=== PATIENT | female | born 1960 | race Caucasian/White ===

== ENCOUNTER 2017-04-06 15:36 | Emergency (ER) | payer BC ==
[~2017-04-06] VITALS: Ht 160 cm; Wt 118.1 kg
[~2017-04-06 15:36] MED LIST: BUPR-79 PO; FLUO20CA35 PO; FLUO40CA8 PO; HEPA100I10 IV; HYDR1TAB2 PO; LEVO75TA5 PO; LISI-461 PO; LISI20TA3 PO; METO-551 PO; MULT-506 PO; NAFC2INJ IV; POLY335040 PO; SODIINJ24 IV
[2017-04-06 15:41] VITALS: TEMP 36.5; Ht 160 cm; Wt 118.1 kg
[2017-04-06] MEDS ORDERED: ONDANSETRON INJ 2 MG/ML 2 ML VIAL IV STA (15:45)
[2017-04-06] MEDS ORDERED: SODIUM CHLORIDE 0.9% 1000ML 1,000 ML IV STA (15:45)
--- NOTE | 2017-04-06 15:50 | EMERGENCY ROOM VISIT NOTE ---
History Report prepared by Brandee: Zoraida Arevalo Under the Supervision of: Dr. Martín Kraus D.O. First contact with patient: 15:39 Chief Complaint: WRIST PAIN Stated Complaint: FALL/ WRIST PAIN History of Present Illness The patient is a 57 year old female who presents to the Emergency Room with complaints of a sudden fall that occurred just prior to arrival. She currently rates her discomfort as a 10/10 in severity. The patient states that she fell today onto her right wrist, causing a right wrist injury. She denies any neck pain, head pain, or other injury. The patient reports difficulty moving her fingers. She denies any tobacco or alcohol use. The patient states that she last ate around 1000 this morning. Source of History: patient Onset: prior to arrival Position: other (global) Symptom Intensity: 10/10 Quality: other (fall) Timing: other (sudden) Associated Symptoms: No headache, No neck pain Note: Associated symptoms: right wrist injury. Review of Systems See HPI for pertinent positives & negatives. A total of 10 systems reviewed and were otherwise negative. Past Medical & Surgical Medical Problems: (1) Body mass index 30+ - obesity (2) Borderline diabetes (3) DEPRESSIVE DISORDER NEC (4) DIAB NHI WO COMP TYPE II OR NOS/NOT UNCONTROLLED (5) HYPERLIPIDEMIA NEC/NOS (6) HYPOTHYROIDISM NOS (7) INTRASPINAL ABSCESS (8) LIPOID METABOL DIS NOS (9) Staphylococcal infectious disease Family History Cancer Diabetes mellitus Gallbladder disease Heart disease Hypertension Kidney disease Kidney stones Social History Alcohol Use: none Drug Use: none Marital Status: Housing Status: lives with significant other Occupation Status: employed Current/Historical Medications Scheduled Bupropion Hcl (Bupropion Hcl Er), 150 MG PO BID Fluoxetine (Prozac), 20 MG PO DAILY Fluoxetine (Prozac), 40 MG PO DAILY Levothyroxine Sodium (Levothyroxine Sodium), 88 MCG PO DAILY Lisinopril (Zestril), 10 MG PO DAILY Lisinopril (Zestril), 20 MG PO DAILY Triamcinolone Acetonide (Nasal (Nasacort Allergy 24Hr), 1 SPRAY NA UD Scheduled PRN Oxycodone Immediate Rel Tab (Roxicodone Ir), 1-2 TAB PO Q4H PRN for Severe Pain Allergies Coded Allergies: No Known Allergies (Unverified , 03/25/13) Physical Exam Vital Signs Date Time Temp Pulse Resp B/P (MAP) Pulse Ox O2 Delivery O2 Flow Rate FiO2 04/06/17 18:21 92 21 126/95 95 Room Air 04/06/17 17:38 94 12 99 04/06/17 17:36 93 15 99 04/06/17 17:34 95 16 99 04/06/17 17:32 95 14 99 04/06/17 17:31 159/92 04/06/17 17:30 93 14 99 04/06/17 17:28 94 13 99 04/06/17 17:26 95 19 99 04/06/17 17:24 92 14 99 04/06/17 17:22 93 12 100 04/06/17 17:21 157/85 04/06/17 17:20 92 15 98 04/06/17 17:19 158/97 04/06/17 17:18 92 14 99 04/06/17 17:17 154/106 04/06/17 17:16 93 22 98 04/06/17 17:15 156/108 04/06/17 17:14 91 14 97 04/06/17 17:13 156/93 04/06/17 17:12 91 11 98 04/06/17 17:07 148/99 04/06/17 17:06 87 15 90 04/06/17 17:05 153/110 04/06/17 17:04 91 28 100 04/06/17 17:03 161/ 04/06/17 17:02 89 19 98 04/06/17 17:01 156/103 04/06/17 17:00 92 11 89 04/06/17 16:59 165/109 04/06/17 16:58 95 23 96 04/06/17 16:56 97 23 100 04/06/17 16:54 94 21 98 04/06/17 16:52 95 16 96 04/06/17 16:50 93 Nasal Cannula 2.0 04/06/17 16:50 95 23 95 04/06/17 16:47 96 16 153/118 95 Room Air 04/06/17 16:47 95 17 153/118 94 Room Air 04/06/17 16:22 98 04/06/17 15:41 36.5 107 20 97 Room Air Physical Exam GENERAL: Patient is awake, alert, very anxious appearing, appears to be in significant pain. EYES: The conjunctivae are clear. The pupils are round and reactive. EARS, NOSE, MOUTH AND THROAT: The nose is without any evidence of any deformity. Mucous membranes are moist tongue is midline NECK: The neck is nontender and supple. RESPIRATORY: Normal respiratory effort is noted there is no evidence of wheezing rhonchi or rales CARDIOVASCULAR: Regular rate and rhythm noted there no murmurs rubs or gallops normal S1 normal S2 GASTROINTESTINAL: The abdomen is soft. Bowel sounds are present in all quadrants. Abdomen is nontender BACK: No midline tenderness or or step-off noted range of motion in flexion extension as well as rotation no signs of muscle spasm noted MUSCULOSKELETAL/EXTREMITIES: Significant deformity over right wrist pain was noted with any palpation and range of motion testing, no swelling or pain at the right elbow. SKIN: Pedal edema bilaterally, capillary refill was symmetric in both upper extremities. There is no obvious evidence of any rash. There are no petechiae, pallor or cyanosis noted. NEUROLOGIC: Patient is awake alert and oriented x3. Medical Decision & Procedures ER Provider Diagnostic Interpretation: X-ray results as stated below per interpretation by me and the radiologist. R WRIST 2 VIEW CLINICAL HISTORY: 57 years-old Female presenting with RIGHT WRIST PAIN, FALL. TECHNIQUE: Frontal and lateral views of the right wrist were obtained. COMPARISON: None. FINDINGS: Displaced mildly comminuted fracture of the distal radial metaphysis with one shaft width dorsal displacement of the distal fracture fragment along with the carpus. [place] volar angulation. Suspected disruption of the distal radial ulnar joint, although this is not well evaluated. IMPRESSION: Displaced distal radial metaphysis fracture with apex volar angulation (Colles' fracture). Severe dorsal displacement of the distal fracture fragment and carpus. Electronically signed by: Christian Calzada M.D. 04/06/2017 4:09 PM Dictated Date/Time: 04/06/2017 4:06 PM R WRIST 2 VIEW CLINICAL HISTORY: 57 years-old Female presenting with post reduction. TECHNIQUE: Frontal and lateral views of the right wrist were obtained. COMPARISON: Plain radiographs performed earlier the same day. FINDINGS: Overlying plaster splint markedly degrades evaluation of underlying osseous detail. Allowing for this, there has been interval reduction of the previously noted distal radial metaphysis fracture. There is mild impaction at the fracture site and at 3 mm of persistent dorsal displacement of the distal fracture fragment. However, no significant residual angulation. Comminution at the fracture site involves the distal radial ulnar joint. No gross evidence of extension to the articular surface at the radiocarpal joint. IMPRESSION: No significant residual angulation. 3 mm of residual dorsal displacement at the distal radial metaphysis fracture. Electronically signed by: Christian Calzada M.D. 04/06/2017 5:34 PM Dictated Date/Time: 04/06/2017 5:33 PM Laboratory Results 04/06/17 16:05 Red Blood Count 4.90, Mean Corpuscular Volume 87.3, Mean Corpuscular Hemoglobin 29.0, Mean Corpuscular Hemoglobin Concent 33.2, Mean Platelet Volume 9.2, Neutrophils (%) (Auto) 67.9, Lymphocytes (%) (Auto) 23.7, Monocytes (%) (Auto) 5.8, Eosinophils (%) (Auto) 2.1, Basophils (%) (Auto) 0.4, Neutrophils # (Auto) 4.91, Lymphocytes # (Auto) 1.71, Monocytes # (Auto) 0.42, Eosinophils # (Auto) 0.15, Basophils # (Auto) 0.03 04/06/17 16:05 Test 04/06/17 16:05 White Blood Count 7.23 K/uL (4.8-10.8) Red Blood Count 4.90 M/uL (4.2-5.4) Hemoglobin 14.2 g/dL (12.0-16.0) Hematocrit 42.8 % (37-47) Mean Corpuscular Volume 87.3 fL (80-100) Mean Corpuscular Hemoglobin 29.0 pg (25-34) Mean Corpuscular Hemoglobin Concent 33.2 g/dl (32-36) Platelet Count 261 K/uL (130-400) Mean Platelet Volume 9.2 fL (7.4-10.4) Neutrophils (%) (Auto) 67.9 % Lymphocytes (%) (Auto) 23.7 % Monocytes (%) (Auto) 5.8 % Eosinophils (%) (Auto) 2.1 % Basophils (%) (Auto) 0.4 % Neutrophils # (Auto) 4.91 K/uL (1.4-6.5) Lymphocytes # (Auto) 1.71 K/uL (1.2-3.4) Monocytes # (Auto) 0.42 K/uL (0.11-0.59) Eosinophils # (Auto) 0.15 K/uL (0-0.5) Basophils # (Auto) 0.03 K/uL (0-0.2) RDW Standard Deviation 44.8 fL (36.4-46.3) RDW Coefficient of Variation 14.1 % (11.5-14.5) Immature Granulocyte % (Auto) 0.1 % Immature Granulocyte # (Auto) 0.01 K/uL (0.00-0.02) Prothrombin Time 10.3 SECONDS (9.0-12.0) Prothromb Time International Ratio 1.0 (0.9-1.1) Activated Partial Thromboplast Time 26.0 SECONDS (21.0-31.0) Partial Thromboplastin Ratio 1.0 Anion Gap 6.0 mmol/L (3-11) Est Creatinine Clear Calc Drug Dose 50.2 ml/min Estimated GFR () 43.7 Estimated GFR (Non- 37.7 BUN/Creatinine Ratio 20.5 (10-20) Calcium Level 9.8 mg/dl (8.5-10.1) Total Bilirubin 0.3 mg/dl (0.2-1) Direct Bilirubin < 0.1 mg/dl (0-0.2) Aspartate Amino Transf (AST/SGOT) 17 U/L (15-37) Alanine Aminotransferase (ALT/SGPT) 26 U/L (12-78) Alkaline Phosphatase 85 U/L (45-117) Total Protein 8.0 gm/dl (6.4-8.2) Albumin 3.7 gm/dl (3.4-5.0) Laboratory results per my review. Medications Administered Medications (Trade) Dose Ordered Sig/[place] Route Start Time Stop Time Status Last Admin Dose Admin Ondansetron HCl (Zofran Inj) 4 mg NOW STAT IV 04/06/17 15:45 04/06/17 15:46 DC 04/06/17 16:05 4 MG Morphine Sulfate (MoRPHine SULFATE INJ) 4 mg Q15M PRN IV 04/06/17 15:45 04/20/17 15:44 04/06/17 16:50 4 MG Sodium Chloride 1,000 ml @ 125 mls/hr Q8H STAT IV 04/06/17 15:45 10/9/17 23:44 04/06/17 16:10 125 MLS/HR Ketamine HCl (Ketalar Steri-Vial Inj) 500 mg STK-MED ONCE .ROUTE 04/06/17 16:39 04/06/17 16:40 DC 04/06/17 16:57 30 MG Propofol (Diprivan Iv Emulsion 20ml Vial) 200 mg STK-MED ONCE IV 04/06/17 16:39 04/06/17 16:40 DC 04/06/17 16:39 200 MG Ondansetron HCl (ZOFRAN ODT 4MG Home Pack) 1 homepack UD ONCE PO 04/06/17 18:15 04/06/17 18:16 DC 04/06/17 18:15 1 HOMEPACK Oxycodone HCl (Roxicodone Immediate Rel 5MG Home Pack) 1 homepack UD ONCE PO 04/06/17 18:15 04/06/17 18:16 DC 04/06/17 18:15 1 HOMEPACK Procedure Procedural Sedation Indication displaced Colles' fracture. Total time: 28 minutes. Written consent was obtained after the risks and benefits were explained to the the patient, including, but not limited to aspiration, allergic reaction, breathing difficulties, cardiac complications, vomiting, pain, event recall, bleeding, and/or infection. Pre-sedation examination and paperwork completed. The patient was on 100% oxygen via NRB prior to the procedure. Continous end tidal CO2 monitoring, pulse oximetry, and cardiac monitoring were utilized. Suction, airway equipment, medications, respiratory equipment, and appropriate personnel were prepared prior to the initiation of the procedure. A time out was taken. Sedation was achieved utilizing 30 mg of Propofol and 45 mg of Ketamine. After I observed the patient had reached the appropriate level of sedation the main procedure was performed without complication. Sedation was discontinued and the monitoring continued. The patient recovered quickly from the effects of the medication without complication or adverse event. ED Course 1540: The patient was evaluated in room C11A. A complete history and physical examination were performed. 1545: Ordered Sodium Chloride 1000 ml @ 125 mls/hr IV, Morphine Sulfate 4 mg IV , Zofran Inj 4 mg IV. 1609: I reevaluated the patient and she is resting. I updated her on the treatment plan. She will be moved to A1 for the reduction of her wrist. 1632: I discussed the patients case with Dr. Serrano, Orthopedics. He is going to come in and reduce the patients dislocation. 163: Ordered Propofol 200 mg IV, [place] HCl 500 mg .route. 170: Dr. Serrano said that he will see the patient in the office in 1 week and will do surgery on Thursday. 180: I reevaluated the patient and she is resting comfortably. I discussed the exam findings with her and I discussed the treatment plan. She verbalized complete understanding and agreement. She is ready to go home. 181: Ordered Oxycodone HCl 1 homepack PO, Ondansetron HCl 1 homepack PO. Medical Decision Differential diagnosis: Etiologies such as fracture, dislocation, neurovascular compromise, compartment syndrome, soft tissue injury, as well as others were entertained. Nursing notes reviewed. Additional history is obtained from the prehospital personnel. The patient is a 57-year-old female who suffered an isolated right upper extremity injury after a fall. The patient was found have a very displaced distal ulnar fracture requiring reduction. I discussed the patient's laboratory and radiographic studies with her. She was treated with IV fluids IV pain medicine and IV antiemetics. She required procedural sedation for reduction of this distal radius fracture. I discussed her case with the on-call orthopedic physician. He presented to the emergency Department to evaluate the patient and she was sedated in the usual fashion and tolerated the procedure quite well. She was reevaluated multiple times. On subsequent reevaluation she was feeling much better splint was in place. The patient was advised to only drink clear liquids through the night and follow-up with the orthopedic physician as scheduled. She was also encouraged to return to the emergency Department immediately if symptoms change worsen or the need arises. Head Trauma GCS Score: 15 Medication Reconcilliation Current Medication List: was personally reviewed by me Blood Pressure Screening Patient's blood pressure: Elevated blood pressure Blood pressure disposition: Elevated BP felt to be situational, Did not require urgent referral Consults Time Called: 161 Consulting Physician: Dr. Serrano, Orthopedics Returned Call: 1631 I discussed the patients case with Dr. Serrano, Orthopedics. He is going to come in and reduce the patients dislocation. Impression Primary Impression: Displaced fracture of distal end of right radius Scribe Attestation The scribe's documentation has been prepared under my direction and personally reviewed by me in its entirety. I confirm that the note above accurately reflects all work, treatment, procedures, and medical decision making performed by me. Departure Information Dispostion Home / Self-Care Prescriptions Oxycodone Immediate Rel Tab (ROXICODONE IR) 5 Mg Tab 1-2 TAB PO Q4H Y for Severe Pain, #24 TAB Prov: Martín Kraus, DO 04/06/17 Referrals Yaniv Plasencia D.O. Sensiba, Paul R., M.D. Forms HOME CARE DOCUMENTATION FORM, IMPORTANT VISIT INFORMATION, WORK / SCHOOL INSTRUCTIONS Patient Instructions ED Fx Colles Wrist No Redu Requ, ED Sedation Procedural Discon, My [facility] Additional Instructions Continue all medications as prescribed. I would recommend a clear liquid diet until tomorrow morning. Continue using Tylenol as directed for mild pain. Call in the morning to schedule a follow-up appointment with the orthopedic physician for Thursday. you will likely require surgery on this wrist fracture which will occur within the next week or so. Return to the emergency apartment immediately if symptoms change worsen or the need arises.
[2017-04-06] MEDS: MoRPHine SULFATE 4 MG/ML 1 ML CARP\\VIAL IV PRN ×2 (16:06→16:50)
--- NOTE | 2017-04-06 16:11 | DIAGNOSTIC IMAGING REPORT ---
R WRIST 2 VIEW CLINICAL HISTORY: 57 years-old Female presenting with RIGHT WRIST PAIN, FALL. TECHNIQUE: Frontal and lateral views of the right wrist were obtained. COMPARISON: None. FINDINGS: Displaced mildly comminuted fracture of the distal radial metaphysis with one shaft width dorsal displacement of the distal fracture fragment along with the carpus. [place] volar angulation. Suspected disruption of the distal radial ulnar joint, although this is not well evaluated. IMPRESSION: Displaced distal radial metaphysis fracture with apex volar angulation (Colles' fracture). Severe dorsal displacement of the distal fracture fragment and carpus. Electronically signed by: Christian Calzada M.D. 04/06/2017 4:09 PM Dictated Date/Time: 04/06/2017 4:06 PM
[2017-04-06 16:19] LABS: BASO % 0.4 %; BASO ABS # 0.03 K/uL (0-0.2); COMPLETE YES; EOS % 2.1 %; HEMATOCRIT 42.8 % (37-47); IG% 0.1 %; LYMPH % 23.7 %; LYMPH ABS # 1.71 K/uL (1.2-3.4); MEAN CELL VOLUME 87.3 fL (80-100); MEAN CORPUSCULAR HGB CONC 33.2 g/dl (32-36); MEAN PLATELET VOLUME 9.2 fL (7.4-10.4); MONO % 5.8 %; NEUT % 67.9 %; PLATELET COUNT 261 K/uL (130-400); WHITE BLOOD COUNT 7.23 K/uL (4.8-10.8)
[2017-04-06 16:35] LABS: PROTHROMBIN TIME (PATIENT) 10.3 SECONDS (9.0-12.0)
[2017-04-06] MEDS ORDERED: KETAMINE HCL INJ 50 MG/ML 10 ML VIAL ONE (16:39)
[2017-04-06] MEDS ORDERED: PROPOFOL IV EMULSION 10 MG/ML 20 ML VIAL IV ONE ×2 (16:39→17:15)
[2017-04-06 16:42] LABS: ALT/SGPT 26 U/L (12-78); AST/SGOT 17 U/L (15-37); BLOOD UREA NITROGEN 31 mg/dl (7-18); BUN/CREATININE RATIO 20.5 (10-20); CALCIUM 9.8 mg/dl (8.5-10.1); CARBON DIOXIDE 27 mmol/L (21-32); CHLORIDE 109 mmol/L (98-107); GLUCOSE 107 mg/dl (70-99); POTASSIUM 4.4 mmol/L (3.5-5.1); SODIUM 142 mmol/L (136-145)
[2017-04-06 16:47] VITALS: BP 153/118; PULSE 95; PULSE 96; O2SAT 94; O2SAT 95
[2017-04-06 16:49] LABS: ALKALINE PHOSPHATASE 85 U/L (45-117)
[2017-04-06 16:50] VITALS: O2SAT 93
[2017-04-06] MEDS ORDERED: TRIA1SPR4 (16:54)
[2017-04-06] MEDS ORDERED: FLUO40CA8 PO (16:54)
[2017-04-06] MEDS ORDERED: BUPR-267 PO (16:54)
[2017-04-06] MEDS ORDERED: LISI-461 PO (16:54)
[2017-04-06] MEDS ORDERED: LISI-725 PO (16:54)
[2017-04-06] MEDS ORDERED: LEVO88TA3 PO (16:54)
[2017-04-06] MEDS ORDERED: FLUO20CA35 PO (16:54)
[2017-04-06] MEDS ORDERED: KETAMINE HCL INJ 50 MG/ML 10 ML VIAL IV ONE (17:15)
--- NOTE | 2017-04-06 17:21 | Orthopedic Consultation ---
Orthopedic Consultation Date of Consultation: Apr 06, 2017. Attending Physician: Christian Serrano MD Reason for Consultation: R wrist fracture History of Present Illness 57-year-old female who sustained a fall onto a right outstretched upper extremity. She tripped and caught her foot and fell onto the right arm. She presented to the emergency room where x-rays were obtained which stem straight displaced distal radius fracture. She denies no some tingling. She denies previous injury. Family History Cancer Diabetes mellitus Gallbladder disease Heart disease Hypertension Kidney disease Kidney stones Social History Smoking Status: Never Smoker Drug Use: none Marital Status: Housing Status: lives with significant other Occupation Status: employed Allergies Coded Allergies: No Known Allergies (Unverified , 03/25/13) Home Medications Scheduled Bupropion Hcl (Bupropion Hcl Er), 150 MG PO BID Fluoxetine (Prozac), 20 MG PO DAILY Fluoxetine (Prozac), 40 MG PO DAILY Levothyroxine Sodium (Levothyroxine Sodium), 88 MCG PO DAILY Lisinopril (Zestril), 10 MG PO DAILY Lisinopril (Zestril), 20 MG PO DAILY Triamcinolone Acetonide (Nasal (Nasacort Allergy 24Hr), 1 SPRAY NA UD Current Inpatient Medications Current Inpatient Medications Medications (Trade) Dose Ordered Sig/[place] Route Start Time Stop Time Status Last Admin Dose Admin Morphine Sulfate (MoRPHine SULFATE INJ) 4 mg Q15M PRN IV 04/06/17 15:45 04/20/17 15:44 04/06/17 16:50 4 MG Sodium Chloride 1,000 ml @ 125 mls/hr Q8H STAT IV 04/06/17 15:45 04/06/17 23:44 04/06/17 16:10 125 MLS/HR Review of Systems As above Physical Exam Date Time Temp Pulse Resp B/P (MAP) Pulse Ox O2 Delivery O2 Flow Rate FiO2 04/06/17 17:07 148/99 04/06/17 17:06 87 15 90 04/06/17 17:05 153/110 04/06/17 17:04 91 28 100 04/06/17 17:03 161/ 04/06/17 17:02 89 19 98 04/06/17 17:01 156/103 04/06/17 17:00 92 11 89 04/06/17 16:59 165/109 04/06/17 16:58 95 23 96 04/06/17 16:56 97 23 100 04/06/17 16:54 94 21 98 04/06/17 16:52 95 16 96 04/06/17 16:50 95 23 95 04/06/17 16:47 96 16 153/118 95 Room Air 04/06/17 16:47 95 17 153/118 94 Room Air 04/06/17 16:22 98 04/06/17 15:41 36.5 107 20 97 Room Air Right upper extremity: Palpable pulse. Light touch sensation is intact in the hand. There is an abrasion over the distal aspect of the ulna but no laceration. No bleeding. Nothing that will constitute an open injury. There is a significant dorsal deformity of the distal radius. Significant pain and crepitus in this region. She is able to move the thumb index and small fingers General Appearance: WD/WN Head: normocephalic Eyes: normal inspection Neck: supple Respiratory/Chest: chest non-tender Cardiovascular: regular rate, rhythm Laboratory Results Last 24 Hours Test 04/06/17 16:05 White Blood Count 7.23 K/uL Red Blood Count 4.90 M/uL Hemoglobin 14.2 g/dL Hematocrit 42.8 % Mean Corpuscular Volume 87.3 fL Mean Corpuscular Hemoglobin 29.0 pg Mean Corpuscular Hemoglobin Concent 33.2 g/dl Platelet Count 261 K/uL Mean Platelet Volume 9.2 fL Neutrophils (%) (Auto) 67.9 % Lymphocytes (%) (Auto) 23.7 % Monocytes (%) (Auto) 5.8 % Eosinophils (%) (Auto) 2.1 % Basophils (%) (Auto) 0.4 % Neutrophils # (Auto) 4.91 K/uL Lymphocytes # (Auto) 1.71 K/uL Monocytes # (Auto) 0.42 K/uL Eosinophils # (Auto) 0.15 K/uL Basophils # (Auto) 0.03 K/uL RDW Standard Deviation 44.8 fL RDW Coefficient of Variation 14.1 % Immature Granulocyte % (Auto) 0.1 % Immature Granulocyte # (Auto) 0.01 K/uL Prothrombin Time 10.3 SECONDS Prothromb Time International Ratio 1.0 Activated Partial Thromboplast Time 26.0 SECONDS Partial Thromboplastin Ratio 1.0 Sodium Level 142 mmol/L Potassium Level 4.4 mmol/L Chloride Level 109 mmol/L Carbon Dioxide Level 27 mmol/L Anion Gap 6.0 mmol/L Blood Urea Nitrogen 31 mg/dl Creatinine 1.50 mg/dl Est Creatinine Clear Calc Drug Dose 50.2 ml/min Estimated GFR () 43.7 Estimated GFR (Non- 37.7 BUN/Creatinine Ratio 20.5 Random Glucose 107 mg/dl Calcium Level 9.8 mg/dl Total Bilirubin 0.3 mg/dl Direct Bilirubin < 0.1 mg/dl Aspartate Amino Transf (AST/SGOT) 17 U/L Alanine Aminotransferase (ALT/SGPT) 26 U/L Alkaline Phosphatase 85 U/L Total Protein 8.0 gm/dl Albumin 3.7 gm/dl Assessment & Plan Displaced right distal radius fracture She had fairly severe displaced distal radius fracture. The distal radius fragment was completely translated 100% dorsally with significant dorsal angulation. She received conscious sedation in the emergency room per Dr. Kraus and I then performed a closed reduction of the wrist and placed her in a sugar tong splint. She tolerated this procedure well. I discussed with her that given the amount of displacement and comminution this is something that will require open reduction and internal fixation. I will plan to see her next week after the tissues have calm down and the swelling has gone down and then we will plan for ORIF.
--- NOTE | 2017-04-06 17:23 | [facility] Operative Report ---
Operative Report Operative Date Apr 06, 2017. Pre-Operative Diagnosis Right displaced distal radius fracture Post-Operative Diagnosis Same Procedure(s) Performed Closed reduction right distal radius fracture Surgeon joceline Talent Consultant Surgeon(s) none Estimated Blood Loss none Findings As above Drains none Anesthesia conscious sedation Complication(s) None Disposition Indications 57-year-old female who sustained a fall and a displaced distal radius fracture with 100% dorsal translation and significant dorsal angulation. Given the amount of displacement I recommended closed reduction and splinting with plan for later ORIF. Description of Procedure Risks benefits and alternatives to the procedure including but not limited to pain, stiffness, failure of reduction, need for later re-reduction, possible need for later surgery, damage to blood vessels, damage to nerves were discussed and they wished to proceed. The patient was identified and the laterality was confirmed. The patient was given conscious sedation per the emergency room attending physician. I then performed a closed reduction maneuver applying distraction and then reversing the deforming forces. A well- padded sugar tong splint was placed. Postreduction x-rays were obtained and demonstrated adequate tenriism of alignment. The patient was neurovascularly intact after the procedure. I attest to the content of the Intraoperative Record and any orders documented therein. Any exceptions are noted below.
--- NOTE | 2017-04-06 17:25 | EMERGENCY ROOM VISIT NOTE ---
Post-Moderate Sedation Plan General Date of Moderate Sedation Apr 06, 2017. Vital Signs: Vital Signs Past 12 Hours Date Time Temp Pulse Resp B/P (MAP) Pulse Ox O2 Delivery O2 Flow Rate FiO2 04/06/17 17:07 148/99 04/06/17 17:06 87 15 90 04/06/17 17:05 153/110 04/06/17 17:04 91 28 100 04/06/17 17:03 161/ 04/06/17 17:02 89 19 98 04/06/17 17:01 156/103 04/06/17 17:00 92 11 89 04/06/17 16:59 165/109 04/06/17 16:58 95 23 96 04/06/17 16:56 97 23 100 04/06/17 16:54 94 21 98 04/06/17 16:52 95 16 96 04/06/17 16:50 95 23 95 04/06/17 16:47 96 16 153/118 95 Room Air 04/06/17 16:47 95 17 153/118 94 Room Air 04/06/17 16:22 98 04/06/17 15:41 36.5 107 20 97 Room Air Review - Discharge Plan Post Moderate Sedation Plan: On clinical assessment, the patient appears to have tolerated the conscious sedation without complications. Patient is recovering as anticipated. Patient will continue to be monitored by nursing and may be discharged when conscious sedation discharge criteria are met.
--- NOTE | 2017-04-06 17:25 | EMERGENCY ROOM VISIT NOTE ---
Pre-Mod Sedation Assessment General Date of Moderate Sedation: Apr 06, 2017. Vital Signs: Vital Signs Past 12 Hours Date Time Temp Pulse Resp B/P (MAP) Pulse Ox O2 Delivery O2 Flow Rate FiO2 04/06/17 17:07 148/99 04/06/17 17:06 87 15 90 04/06/17 17:05 153/110 04/06/17 17:04 91 28 100 04/06/17 17:03 161/ 04/06/17 17:02 89 19 98 04/06/17 17:01 156/103 04/06/17 17:00 92 11 89 04/06/17 16:59 165/109 04/06/17 16:58 95 23 96 04/06/17 16:56 97 23 100 04/06/17 16:54 94 21 98 04/06/17 16:52 95 16 96 04/06/17 16:50 95 23 95 04/06/17 16:47 96 16 153/118 95 Room Air 04/06/17 16:47 95 17 153/118 94 Room Air 04/06/17 16:22 98 04/06/17 15:41 36.5 107 20 97 Room Air Review Airway Class: II Pre-Sedation Airway Assessment Oral Cavity: WNL Able to Visualize Vocal Cords: No Short Thick Neck: No Hx of Sleep Apnea: No Smoking Status: Never Smoker Mallampati Classification: Class II ASA Classification: Class II Procedure Planning Contraindications-for Mod Sed: None Yes Notes The planned sedation has been discussed with the patient and consent obtained. I have identified the patient, determined the appropriateness of sedation and have assessed the patient immediately prior to the procedure. All medicine(s) and interventions are by my order.
--- NOTE | 2017-04-06 17:36 | DIAGNOSTIC IMAGING REPORT ---
R WRIST 2 VIEW CLINICAL HISTORY: 57 years-old Female presenting with post reduction. TECHNIQUE: Frontal and lateral views of the right wrist were obtained. COMPARISON: Plain radiographs performed earlier the same day. FINDINGS: Overlying plaster splint markedly degrades evaluation of underlying osseous detail. Allowing for this, there has been interval reduction of the previously noted distal radial metaphysis fracture. There is mild impaction at the fracture site and at 3 mm of persistent dorsal displacement of the distal fracture fragment. However, no significant residual angulation. Comminution at the fracture site involves the distal radial ulnar joint. No gross evidence of extension to the articular surface at the radiocarpal joint. IMPRESSION: No significant residual angulation. 3 mm of residual dorsal displacement at the distal radial metaphysis fracture. Electronically signed by: Christian Calzada M.D. 04/06/2017 5:34 PM Dictated Date/Time: 04/06/2017 5:33 PM
--- NOTE | 2017-04-06 17:40 | Pharmacy Progress Note ---
ED Pharmacist Progress Note Date of Service: Apr 06, 2017. Recommended dosing for ketofol procedural sedation. Patient is morbidly obese and dosing was based closer to IBW (52kg) than ABW (118kg). Total original dose of ketofol was 60mg. An additional 15mg of propofol was administered.
[2017-04-06] MEDS ORDERED: OXYC1TAB3 PO (18:12)
[2017-04-06] MEDS ORDERED: OXYCODONE IR HOME PACK PO ONE (18:15)
[2017-04-06] MEDS ORDERED: ONDANSETRON HOME PACK 4MG OD TAB PO ONE (18:15)
[2017-04-06 18:21] VITALS: BP 126/95; PULSE 92; O2SAT 95
== END 2017-04-06 18:51 | disposition home or self-care (01) ==
LOC: EDBD 15:36 → C.EDC 15:38 → C.EDA 18:51
DX: S52.531A Colles' fracture of right radius, initial encounter for closed fracture (principal); W01.0XXA Fall on same level from slipping, tripping and stumbling without subsequent striking against object, initial encounter; E66.9 Obesity, unspecified; E11.9 Type 2 diabetes mellitus without complications; F32.9 Major depressive disorder, single episode, unspecified; E78.5 Hyperlipidemia, unspecified; E03.9 Hypothyroidism, unspecified; Z83.3 Family history of diabetes mellitus; Z82.49 Family history of ischemic heart disease and other diseases of the circulatory system; Z84.1 Family history of disorders of kidney and ureter

== ENCOUNTER → 2017-04-13 | Outpatient (CLI) | payer OTHER, BC ==
[~2017-04-13] MED LIST changes: +BUPR-267 PO; -BUPR-79 PO; -HEPA100I10 IV; -HYDR1TAB2 PO; -LEVO75TA5 PO; +LEVO88TA3 PO; +LISI-725 PO; -LISI20TA3 PO; -METO-551 PO; -MULT-506 PO; -NAFC2INJ IV; +OXYC1TAB3 PO; -POLY335040 PO; -SODIINJ24 IV; +TRIA1SPR4
== END | disposition home or self-care (01) ==
LOC: C.CPL 16:55
PROVIDERS: ATTEND Orthopaedic Surgery
DX: S52.591A Other fractures of lower end of right radius, initial encounter for closed fracture (principal); X58.XXXA Exposure to other specified factors, initial encounter

== ENCOUNTER 2023-07-12 11:38 | Inpatient (IN) ==
--- OUTSIDE RECORDS SUMMARY | 2023-07-12 11:42 | External Medical Summary | Summary of Care ---
Author Name Unknown Organization [facility] Address [address] [place] [address] Phone [phone] Care Team Providers Care Panman Name Role Phone Dunia Espana DO Primary Care Provider [phone] Reason for Visit * Reason Onset Date Comments Health Maintenance 07/09/2023 Encounter Details Date Type Department Care Team (Late st Contact Info) Description 07/09/2023 Telephone Family Practice [facility] [place] [address] [place] [address] Dunia Espana DO 200 [facility] [place] [address] Health Maintenance Allergies No known active allergiesdocumented as of this encounter (statuses as of 07/10/2023) Medications Medication Sig Dispensed Refills Start Date End Date Status cetirizine (ZYRTEC) 10 MG Tablet Take 1 Tab by mouth daily. 90 Tab 4 08/17/2019 Active Additional Information Patient taking differently:10 mg OralDAILY NOON, Reported on 12/31/2022 CPAP every night at bedtime . 0 Active Multi-Day Vitamins Oral Tablet Take 1 Tablet by mouth daily at noon. 0 Active Docusate Sodium 100 MG Oral Capsule Take 1 Capsule by mouth every evening. 0 Active Levothyroxine Sodium 112 MCG Oral Tablet (Levoxyl) Take 1 Tablet by mouth in the morning. (at least 30 min prior to breakfast or other meds). 90 Tablet 3 12/12/2022 Active Amitriptyline HCl 25 MG Oral Tablet (Elavil)Indication s:Primary insomnia take 1 tablet by mouth at bedtime 90 Tablet 3 12/22/2022 Active Montelukast Sodium 10 MG Oral Tablet (Singulair)Indicat ions:Chronic rhinitis Take 1 Tablet by mouth in the morning. 90 Tablet 3 03/05/2023 Active Lisinopril 20 MG Oral Tablet (Prinivil)Indicati ons:Kidney disease, chronic, stage III (GFR 30-59 ml/min) ([facility]),Type 2 diabetes mellitus with hemoglobin A1c goal of less than 7.0% (HCC) TAKE 1 TABLET DAILY WITH 10MG TABLET FOR TOTAL DOSE OF 30MG A DAY 90 Tablet 3 03/05/2023 Active Lisinopril 10 MG Oral Tablet (Prinivil)Indicati ons:Kidney disease, chronic, stage III (GFR 30-59 ml/min) ([facility]),Type 2 diabetes mellitus with hemoglobin A1c goal of less than 7.0% (HCC) TAKE 1 TABLET DAILY WITH 20MG DOSE FOR A TOTAL DOSE OF 30MG A DAY 90 Tablet 3 03/05/2023 Active methylPREDNISolone 4 MG Oral Tablet Therapy Pack (Medrol Dosepack)Indicatio ns:Closed fracture of olecranon process of left ulna with routine healing, subsequent encounter,Closed displaced fracture of head of left radius with routine healing, subsequent encounter follow package directions 21 Tablet 0 04/20/2023 Active Escitalopram Oxalate 20 MG Oral Tablet (Lexapro)Indicatio ns:Moderate episode of recurrent major depressive disorder (HCC) take 1 tablet by mouth once daily 90 Tablet 2 04/21/2023 Active buPROPion HCl ER (SR) 150 MG Oral Tablet Extended Release 12 Hour (Wellbutrin SR) take 1 tablet by mouth twice a day 180 Tablet 2 04/21/2023 Active documented as of this encounter (statuses as of 07/10/2023) Active Problems Problem Noted Date Diagnosed Date Closed fracture of left olecranon process 2022 Left radial head fracture 01/07/2023 Stage 3a chronic kidney disease 05/07/2020 Overview: Per CKD protocol Primary insomnia 05/09/2019 Body mass index (BMI) of 45.0 to 49.9 in adult 0 02/07/2019 Overview: Per Obesity protocol - Per Obesity Taxonomy Allergic rhinitis 11/16/2013 DYSLIPIDEMIA, GOAL LDL BELOW 100 06/13/2009 Overview: Per Lipid Taxonomy. Acquired hypothyroidism 06/08/2008 No advance directive on file 04/22/2006 Overview: No, Advance Directive brochure offered , patient declined. 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 ICD-10 update of inactive term Type 2 diabetes mellitus wit h hemoglobin A1c goal of less than 7.0% 07/13/2002 04/26/2009 Overview: Per Diabetes Taxonomy. ICD-10 update of inactive term OBESITY, UNSPECIFIED 07/13/2002 010 Overview: Per Obesity Taxonomy Dyslipidemia, goal to be determined 07/13/2002 06/13/2009 Overview: Per Lipid Taxonomy. documented as of this encounter (statuses as of 07/10/2023) Immunizations Name Administration Dates Next Due COVID-19 mRNA, LNP-s, No Pre serve, 2-Dose Series (Pfizer) 08/11/2020,07/21/2020 H1N1 2009 Influenza, IM 08/14/2009 Hepatitis B, 20+ yrs 11/16/2013,07/20/2013,05/18 Pneumococcal Conjugate Vacci ne, 20-valent ([id number]) 06/06/2022 Pneumococcal Polysaccharide PPV23 (Pneumovax) 09/28/1999 Seasonal Influenza Virus Vac cine, Unspecified Formulation 03/18/2021 Seasonal Influenza, QUAD, wi th Preserv, 6 mons & Above, 0.5 mL, IM 04/06/2018 Seasonal Influenza, Quadriva lent, No Preserve, IM 04/03/2022,03/25/2019,04/20/2018,03/26,04/16/2016 Seasonal Influenza, Split, I IV3, With Preserve, Inj 04/15/2015,04/23/2014,04/25/2013,04/13,04/12/2010,04/03/2009,04/27/2008 ,04/30/2007 TD, Preservative Free 12/05/2019 TDAP (age 11 and older)(Adacel) 08/14/2009 Zoster Vaccine Recombinant (Shingrix) 02/06/2020 ,12/05/2019 documented as of this encounter Social History Tobacco Use Types Packs/Day Years Used Date Smoking Tobacco: Never Smokeless Tobacco: Never Alcohol Use Standard Drinks/Week Comments No 0 (1 standard drink = 0.6 oz pur e alcohol) PHQ-2 Answer Date Recorded PHQ-2 Score 0 02/11/2019 Sex and Gender Information Value Date Recorded Sex Assigned at Not on file Gender Identity Not on file Sexual Orientation Not on file Job Start Date Occupation Industry Not on file Not on file Not on file documented as of this encounter Miscellaneous Notes * Addendum Note - Dunia Espana DO - 07/10/2023 2:45 PM ESTAddended by: DUNIA ESPANA on: 07/10/2023 02:45 PM Modules accepted: Orders * Telephone Encounter - Dunia Espana DO - 07/10/2023 2:44 PM EST ORder signed, thank you * Addendum Note - Julissa Arce LPN - 07/10/2023 2:23 PM ESTAddended by: JULISSA ARCE on: 07/10/2023 02:23 PM Modules accepted: Orders * Telephone Encounter - Julissa Arce LPN - 07/10/2023 2:21 PM EST Spoke to patient. Mammogram ordered she will call back in to schedule later due to elbow. Labs ordered that were due. Labs Ordered that are due for her upcoming appt. I pended her lipid panel. Last done 2018 please review and sign if appropriate. * Telephone Encounter - Julissa Arce LPN - 07/09/2023 9:28 AM EST Care Gaps Comprehensive Care Outreach Last Office/Telemedicine Visit: 12/31/2022 (in office), Visit date not found (telemedicine) Next Office Visit: 08/04/2023 Hemoglobin AIC Results: Lab Results Component Value Date/Time HEMOGLOBIN A1C - [facility] 6.1 (H) 06/19/2021 03:02 PM HEMOGLOBIN A1C - [facility] 5.4 11/06/2017 08:08 AM HEMOGLOBIN A1C - [facility] 5.3 03/17/2016 02:40 PM HEMOGLOBIN A1C - [facility] 5.4 08/06/2015 01:01 PM Reviewed Health Maintenance below: Health Maintenance Topic Date Due Depression Screening 02/12/2020 Mammogram 12/02/2022 DXA Scan Never done Influenza Vaccine (FLU shot) (1) 02/27/2023 COVID-19 Vaccine ( season) 2023 Albumin/Creatinine Ratio 06/06/2023 GFR 06/11/2023 Labs add lipid Dexa mamm Care Gap Outreach Action Taken: Left message documented in this encounter Plan of Treatment Upcoming Encounters Date Type Department Care Team (Late st Contact Info) Description 08/04/2023 2:40 PM EST Office Visit Family Practice [facility] [address] [place] [address] Dunia Espana, DO 200 [facility] [place] [address] 01/04/2024 10:30 AM EDT Office Visit [facility]opaed[facility], [facility] [address] [place] [address] [facility] [address] 04/07/2024 3:00 PM EDT Office Visit [facility] Disorders [facility] [place] [address] [place] [phone] Kimmie Billingsley DO [address] [place] [address] Scheduled Orders Name Type Priority Associated Diagnoses Orde r Schedule MAMMOGRAM SCREENING HOWARD BILATERAL Medical Imaging Routine Encounter for screening mammogram for malignant neoplasm of breast Expected: 07/10/2023, Expires: 08/10/2024 ALBUMIN / CREATININE RATIO, URINE Lab Routine Chronic kidney disease, unspecified CKD stage Expected: 07/10/2023 (Approximate), Expires: 07/10/2024 COMPREHENSIVE METABOLIC PANEL Lab Routine Chronic kidney disease, unspecified CKD stage Expected: 07/10/2023, Expires: 07/10/2024 LIPID PANEL WITH DIRECT LDL IF TG IS HIGH Lab Routine DYSLIPIDEMIA, GOAL LDL BELOW 100 Expected: 07/10/2023, Expires: 07/10/2024 Health Maintenance Due Date Last Done Comments Colonoscopy 2003 Fecal Occult Blood Test 2003 Sigmoidoscopy 2003 Depression Screening 02/12/2020 02/11/2019, 09/27/2014 (Discussed) Mammogram 12/02/2022 12/02/2021, 01/0 11/2021, 01/01/2021, Additional history exists DXA Scan 2023 COVID-19 Vaccine ( season) 2023 08/11/2020, 07/21/2020 Influenza Vaccine (FLU shot) (#1) 2023 04/03/2022, 03/18/2021, 03/30/2020, Additional history exists Albumin/Creatinine Ratio 06/06/2023 022, 01/20/2019, 11/06/2017, Additional history exists GFR 06/11/2023 12/10/2022, 11/28, 06/19/2021, Additional history exists CKD HGB USE SMARTSET 57259 12/11/202312/10, 12/20/2021, 06/05/2020, Additional history exists CKD PHOS USE SMARTSET 55703 12/11/202311/27, 12/20/2021, 06/05/2020, Additional history exists TSH 12/11/2023 12/10/2022, 11/28, 10/29/2021, Additional history exists Lipid Panel 01/21/2024 01/20/2019, 12/28, 11/06/2017, Additional history exists Cologuard 06/20/2025 06/20/2022, 05/29, 06/15/2022, Additional history exists Colorectal Cancer Screening 06/20/2025 Diabetes Screening 01/07/2026 01/07/2023, 0 01/07/2023, 12/10/2022, Additional history exists DTaP,Tdap,and Td Vaccines (3 - Td or Tdap) 12/04/2029 12/05/2019, 08/14/2009 Hepatitis B Completed 11/16/2013, 06/30, 05/18/2013 Diabetic Eye Exam Discontinued 09/27/2014 (Emma fleming), 10/04/2013 (Done elsewhere), 08/03/2013, Additional history exists Diabetic Foot Exam Discontinued 09/13/2015, 1 07/13/2013, 03/02/2013, Additional history exists Cervical Cancer Screening Discontinued Pap Smear Discontinued 01/26/2019, 05/30, 09/27/2014, Additional history exists Zoster Vaccines Completed 02/06/2020, 12/05/2019 Pneumococcal Vaccine: 65+ Years Completed 06/06/2022, 09/28/1999 GARDASIL-HPV IMMUNIZATION SERIES Aged Out No longer eligible based on patient's age to complete this topic HPV/Co-Test Discontinued MENINGOCOCCAL (MENACTRA/MENVEO) Aged Out No longer eligible based on patient's age to complete this topic documented as of this encounter Medical Devices Implanted Type Area Two Needle Machine Operator Device Identifier Shelf Expiration Date Model / Serial / Lot Envista Hydrophobic Acrylic Intraocular Lens Implanted:Qty: 1 on 06/17/2022 by Ceasar Valentine MD at OR [facility] Left: Eye [employer] 05/28/2024 [id number] / [id number] / [id number] Envista Toric Intraocular Lens Implanted:Qty: 1 on 07/01/2022 by Ceasar Valentine MD at OR [facility] Right: Eye [employer]OM[employer] 03/28/2023 [id number] / [id number] Align Radial Head And Lock Screw, 22mm Implanted:Qty: 1 on 01/07/2023 [place] [facility] [place] Elbow [employer] 04/22/2027 [id number] / / [id number] documented as of this encounter Visit Diagnoses Diagnosis Encounter for screening mammogram for malignant neoplasm of breast- Primary Other screening mammogram Chronic kidney disease, unspecified CKD stage DYSLIPIDEMIA, GOAL LDL BELOW 100 Other and unspecified hyperlipidemia documented in this encounter Advance Directives Latest Code Status on File Code Status Date Activated Date Inactivated Comments Full Code 01/07/2023 6:14 PM 01/08/2023 12:12 AM Question Answer Comments Discussion of Advance Directives occurred with: Not Discussed due to patient's condition Code Status History Code Status Date Activated Date Inactivated Comments No Code 07/01/2022 12:23 PM 07/01/2022 6:46 PM This o rder reflects the patients wishes and were consensually agreed upon. Question Answer Comments Discussion of Advance Directives occurred with: Patient Does the patient have a Living Will? No Does the patient have Health Care Power of Telecom Specialist? No No Code 06/17/2022 11:34 AM 06/17/2022 5:37 PM Th is order reflects the patients wishes and were consensually agreed upon. Question Answer Comments Discussion of Advance Directives occurred with: Patient Does the patient have a Living Will? No Does the patient have Health Care Power of Telecom Specialist? No Full Code 02/03/2013 1:43 AM 02/15/2013 4:51 PM This o rder reflects the patients wishes and were consensually agreed upon. Care Teams Panman Relationship Specialty Start Date End Date Dunia Espana DO [address] [place] [address] PCP - General Family Medicine 07/01/16 documented as of this encounter
--- OUTSIDE RECORDS SUMMARY | 2023-07-12 11:43 | External Medical Summary | Summary of Care ---
Author Name Unknown Organization [facility] Address [address] [place] [address] Phone [phone] Care Team Providers Care Hop Trainer Name Role Phone Yaniv Plasencia DO Primary Care Provider [phone] Reason for Visit * Reason Onset Date Comments Health Maintenance 07/09/2023 Encounter Details Date Type Department Care Team (Late st Contact Info) Description 07/09/2023 Telephone Family Practice [facility] [place] [address] [place] [address] Yaniv Plasencia DO 200 [facility] [place] [address] Health Maintenance Allergies No known active allergiesdocumented [...] disease, chronic, stage III (GFR 30-59 ml/min) ([facility]),Type 2 diabetes mellitus with hemoglobin A1c goal of less than 7.0% (HCC) TAKE 1 TABLET DAILY WITH 10MG TABLET FOR TOTAL DOSE OF 30MG A DAY 90 Tablet 3 03/05/2023 Active Lisinopril 10 MG Oral Tablet (Prinivil)Indicati ons:Kidney disease, chronic, stage III (GFR 30-59 ml/min) ([facility]),Type 2 diabetes mellitus with hemoglobin A1c goal [...] yrs 11/16/2013,07/20/2013,05/18 Pneumococcal Conjugate Vacci ne, 20-valent ([id number]) 06/06/2022 Pneumococcal Polysaccharide PPV23 (Pneumovax) 09/28/1999 Seasonal [...] encounter Miscellaneous Notes * Addendum Note - Carolin Arce LPN - 07/10/2023 2:23 PM ESTAddended by: CAROLIN ARCE on: 07/10/2023 02:23 PM Modules accepted: Orders * Telephone Encounter - Carolin Arce LPN - 07/10/2023 2:21 PM EST Spoke to patient. Mammogram ordered she will call back in to schedule later due to elbow. Labs ordered that were due. Labs Ordered that are due for her upcoming appt. I pended her lipid panel. Last done 2018 please review and sign if appropriate. * Telephone Encounter - Carolin Arce LPN - 07/09/2023 9:28 AM EST [...] Vaccine (FLU shot) (1) 02/27/2023 COVID-19 Vaccine (3 season) 2023 Albumin/Creatinine Ratio 06/06/2023 GFR 06/11/2023 Labs add lipid Dexa mamm Care Gap Outreach Action Taken: Left message documented in this encounter Plan of Treatment Upcoming Encounters Date Type Department Care Team (Late st Contact Info) Description 08/04/2023 2:40 PM EST Office Visit Family Practice [place] [facility] [address] [place] [address] Yaniv Plasencia, DO [address] [place] [address] [address] 01/04/2024 10:30 AM EDT [facility] [address] [place] [address] Bhupinder Ritter MD 16 [facility] [place] [address] 04/07/2024 3:00 PM EDT Office Visit [facility] Disorders Ctr [facility] [address] [place] [phone] Kimmie Billingsley, [address] [place] [address] Scheduled Orders Name Type Priority Associated Diagnoses Orde r Schedule MAMMOGRAM SCREENING HOWARD BILATERAL Medical Imaging Routine Encounter for screening mammogram for malignant neoplasm of breast Expected: 07/10/2023, Expires: 08/10/2024 ALBUMIN / CREATININE RATIO, URINE Lab Routine Chronic kidney disease, unspecified CKD stage Expected: 07/10/2023 (Approximate), Expires: 07/10/2024 COMPREHENSIVE METABOLIC PANEL Lab Routine Chronic kidney disease, unspecified CKD stage Expected: 07/10/2023, Expires: 07/10/2024 Health Maintenance Due Date Last Done Comments Colonoscopy 2003 Fecal Occult Blood Test 2003 Sigmoidoscopy 2003 Depression Screening 02/12/2020 02/11/2019, 09/27/2014 (Discussed) Mammogram 12/02/2022 12/02/2021, 11/2021, 01/01/2021, Additional history exists DXA Scan 2023 COVID-19 Vaccine ( season) 2023 08/11/2020, 07/21/2020 Influenza Vaccine (FLU shot) (#1) 2023 04/03/2022, 03/18/2021, 03/30/2020, Additional history exists Albumin/Creatinine Ratio 06/06/2023 022, 01/20/2019, 11/06/2017, Additional history exists GFR 06/11/2023 12/10/2022, 11/28, 06/19/2021, Additional history exists CKD HGB USE SMARTSET 43100 12/11/202312/10, 12/20/2021, 06/05/2020, Additional history exists CKD PHOS USE SMARTSET 54055 12/11/202311/27, 12/20/2021, 06/05/2020, Additional history exists TSH [...] 06/30, 05/18/2013 Diabetic Eye Exam Discontinued 09/27/2014 (Di scussed), 10/04/2013 (Done elsewhere), 08/03/2013, Additional history exists [...] this encounter Medical Devices Implanted Type Area Coal Carrier Device Identifier Shelf Expiration Date Model / Serial / Lot Envista Hydrophobic Acrylic Intraocular Lens Implanted:Qty: 1 on 06/17/2022 by Ceasar Valentine MD at [facility] Left: Eye [employer] 05/28/2024 [id number] / [id number] / [id number] Envista Toric Intraocular Lens Implanted:Qty: 1 on 07/01/2022 by Ceasar Valentine MD at [place] [facility] Right: Eye [employer] 03/28/2023 [id number] / [id number] Align Radial Head And Lock Screw, 22mm Implanted:Qty: 1 on 01/07/2023 by Bhupinder Ritter MD at [place] [facility] [place]: Elbow [employer] 04/22/2027 [id number]-RHI-22 [id number] / / [id number] documented as of this encounter Visit Diagnoses [...] the patient have Health Care Power of Insurance Instructor? No No Code 06/17/2022 11:34 AM 06/17/2022 5:37 PM Th is order reflects the patients wishes and were consensually agreed upon. Question Answer Comments Discussion of Advance Directives occurred with: Patient Does the patient have a Living Will? No Does the patient have Health Care Power of Insurance Instructor? No Full Code 02/03/2013 1:43 AM 02/15/2013 4:51 PM This o rder reflects the patients wishes and were consensually agreed upon. Care Teams Hop Trainer Relationship Specialty Start Date End Date Yaniv Plasencia DO [address] [place] [address] PCP - General Family Medicine 07/01/16 documented as of this encounter
--- OUTSIDE RECORDS SUMMARY | 2023-07-12 11:43 | External Medical Summary | Summary of Care ---
Author Name Unknown Organization [facility] Address [address] [place] [address] Phone [phone] Care Team Providers Care Automation Engineer Name Role Phone Yaniv Plasencia DO Primary Care Provider [phone] Reason for Visit * Reason Comments Post-Op Left elbow * Evaluate & Treat - Unlimited Visits (Within 10 days (routine)) - Authorized Specialty Diagnoses / Procedures Referred By Yinka phillips Referred To Contact Occupational Medicine / Occupational Therapy Diagnoses Closed fracture of olecranon process of left ulna with routine healing, subsequent encounter Closed displaced fracture of head of left radius with routine healing, subsequent encounter Tawana Mendez PA-C [address] [place] [address] Referral ID Status Reason Start Date Expiration Date Visits Requested Visits Authorized [id number] Authorized Specialty Services Required 01/21/2023 06/28/[phone] Encounter Details Date Type Department Care Team Description 01/21/2023 Rehab Services Occupational Therapy, [facility] [address] [place] [address] Maurice Martin OT [address] [place] [address] Closed displaced fracture of head of left radius, initial encounter*; Closed fracture of olecranon process of left ulna, initial encounter Allergies No known active allergiesdocumented as of this encounter (statuses as of 01/21/2023) Medications Medication Sig Dispensed Refills Start Date [...] Capsule by mouth every evening. 0 Active Escitalopram Oxalate 20 MG Oral Tablet (Lexapro)Indicatio ns:Moderate episode of recurrent major depressive disorder (HCC) take 1 tablet by mouth once daily 90 Tablet 2 07/25/2022 Active buPROPion HCl ER (SR) 150 MG Oral Tablet Extended Release 12 Hour (Wellbutrin SR) take 1 tablet by mouth twice a day 180 Tablet 2 07/25/2022 Active Lisinopril 10 MG Oral Tablet (Prinivil)Indicati ons:Kidney disease, chronic, stage III (GFR 30-59 ml/min) ([facility]),Type 2 diabetes mellitus with hemoglobin A1c goal of less than 7.0% ([facility]) TAKE 1 TABLET DAILY WITH 20MG DOSE FOR A TOTAL DOSE OF 30MG A DAY 90 Tablet 1 09/10/2022 Active Montelukast Sodium 10 MG Oral Tablet (Singulair)Indicat ions:Chronic rhinitis TAKE 1 TABLET DAILY 90 Tablet 1 09/10/2022 Active Lisinopril 20 MG Oral Tablet (Prinivil)Indicati ons:Kidney disease, chronic, stage III (GFR 30-59 ml/min) ([facility]),Type 2 diabetes mellitus with hemoglobin A1c goal of less than 7.0% ([facility]) TAKE 1 TABLET DAILY WITH 10MG TABLET FOR TOTAL DOSE OF 30MG A DAY 90 Tablet 1 09/10/2022 Active Levothyroxine Sodium 112 MCG Oral Tablet (Levoxyl) Take 1 Tablet by mouth in the morning. (at least 30 min prior to breakfast or other meds). 90 Tablet 3 12/12/2022 Active Amitriptyline HCl 25 MG Oral Tablet (Elavil)Indication s:Primary insomnia take 1 tablet by mouth at bedtime 90 Tablet 3 12/22/2022 Active oxyCODONE HCl 5 MG Oral Tablet (Oxy IR)Indications:Sil sed fracture of olecranon process of left ulna, initial encounter Take 1 Tablet by mouth every 8 hours as needed for Pain, Severe. 15 Tablet 0 12/31/2022 Active HYDROcodone-Acetam inophen 5-325 MG Oral Tablet Take 1 Tablet by mouth every 6 hours as needed for Pain, Severe. 10 Tablet 0 01/07/2023 Active documented as of this encounter (statuses as of 01/21/2023) Active Problems Problem Noted Date Closed fracture of left olecranon proces s 01/07/2023 Left radial head fracture 01/07/2023 Stage 3a chronic kidney disease 05/07/20 20 Overview: Per CKD protocol Primary insomnia 05/09/2019 Body mass index (BMI) of 45.0 to 49.9 in adult 02/07/2019 Overview: Per Obesity protocol - Per Obesity Taxonomy Allergic rhinitis 11/16/2013 DYSLIPIDEMIA, GOAL LDL BELOW 100 009 Overview: Per Lipid Taxonomy. Acquired hypothyroidism 06/08/2008 No advance directive on file 04/22/2006 Overview: No, Advance Directive brochure offered , patient declined. Migraine without aura, intractable 10/25 Depression, major, in remission 07/13/19 03 documented as of this encounter (statuses as of 01/21/2023) Resolved Problems Problem Noted Date Resolved Date Diabetes mellitus without complication 8 12/18/2017 Kidney disease, chronic, stage III (GFR 30-59 ml /min) 08/22/2013 05/10/2020 Overview: Per CKD protocol #1 Staphylococcus aureus bacteremia 02/13/2013 06/14/2020 SIADH (syndrome of inappropriate ADH production) 02/13/2013 11/05/2017 Hypophosphatemia 02/13/2013 06/14/2020 Hypokalemia 02/13/2013 06/14/2020 Spinal epidural abscess 02/04/2013 06/14/20 20 Body mass index 40.0-44.9, adult 09/25/2009 02/10/2019 Overview: Per Obesity Taxonomy Type 2 diabetes mellitus wit h hemoglobin A1c goal of less than 7.0% 04/26/2009 03/20/2016 Overview: Per Diabetes Taxonomy. ICD-10 update of inactive term Type 2 diabetes mellitus wit h hemoglobin A1c goal of less than 7.0% 07/13/2002 04/26/2009 Overview: Per Diabetes Taxonomy. ICD-10 update of inactive term OBESITY, UNSPECIFIED 07/13/2002 09/25/2009 Overview: Per Obesity Taxonomy Dyslipidemia, goal to be determined 07/13/2002 06/13/2009 Overview: Per Lipid Taxonomy. documented as of this encounter (statuses as of 01/21/2023) Immunizations Name Administration Dates Next Due COVID-19 mRNA, LNP-s, No Pre serve, 2-Dose Series (Reelio) 08/11/2020,07/21/2020 H1N1 2009 Influenza, IM 08/14/2009 Hepatitis B, 20+ yrs 11/16/2013,07/20/2013,05/18 Pneumococcal Conjugate Vacci ne, 20-valent ([id number]) 06/06/2022 Pneumococcal Polysaccharide PPV23 (Pneumovax) 09/28/1999 Seasonal [...] drink = 0.6 oz pur e alcohol) Sex Assigned at Date Recorded Not on file Job Start Date Occupation Industry Not on file Not on file Not on file documented as of this encounter Patient Instructions * Patient Instructions* Maurice Martin OT - 01/21/2023 2:32 PM EDT Images from the original note were not included. documented in this encounter Progress Notes * Maurice Martin OT - 01/21/2023 2:23 PM EDT 1OUTPATIENT OCCUPATIONAL THERAPY GENERAL EVALUATION Occupational Therapy, [place] [address] [place] [address] Date: 01/21/2023 Patient Name: Susannah Vasquez Date of : 1960 Age: [age] year old Date: 01/21/2023 Visit Number: 1 Date of Contact: 01/21/23 Insurance: Payor: AETNA Plan: AETNA Product Type: *No Product type* Referring Physician: Bhupinder Ritter MD Primary Care Physician: Yaniv Plasencia DO Encounter Diagnosis: Associated Diagnoses Closed fracture of olecranon process of left ulna with routine healing, subsequent encounter [G04.368D] - Primary Closed displaced fracture of head of left radius with routine healing, subsequent encounter [D10.481D] Comments S/p Open Reduction Internal Fixation Left Elbow Olecranon Fracture with Left Elbow Radial Head Replacement on 01/07/23 Evaluate and treat Scar management Finger and wrist progressive motion and strengthening. Patient is in a range of motion brace from full extension to 90 degrees of flexion until 6 week post op visit. Patient is to gradually advance active range of motion, avoiding passive stretching until 4-6 weekspost-op. Patient is to avoid strengthening until approximately 6-8 weeks post-op Plan of Care Date: 01/21/23 Patient Verified by: Name and Date of Fall Risk: no Precautions: universal Orders: eval and treat Dates covered: 01/21/23 to 02/25/2023 Precertification dates/visits: tbd Authorization number: [id number] Past Medical History: Past Medical History: Diagnosis Date Acquired hypothyroidism 06/08/2008 Body mass index 40.0-44.9, adult ([facility]) 09/25/2009 Per Obesity Taxonomy Depressive disorder, not elsewhere classified Dyslipidemia, goal to be determined HTN (hypertension) Hypothyroidism Obesity, BMI not known Sleep apnea, obstructive Test Results: see imaging Current Outpatient Medications Medication Sig Dispense Refill cetirizine (ZYRTEC) 10 MG Tablet Take 1 Tab by mouth daily. (Patient taking differently: Take 1Tablet by mouth daily at noon.) 90 Tab 4 CPAP every night at bedtime . Multi-Day Vitamins Oral Tablet Take 1 Tablet by mouth daily at noon. Docusate Sodium 100 MG Oral Capsule Take 1 Capsule by mouth every evening. Escitalopram Oxalate 20 MG Oral Tablet (Lexapro) take 1 tablet by mouth once daily 90 Tablet 2 buPROPion HCl ER (SR) 150 MG Oral Tablet Extended Release 12 Hour (Wellbutrin SR) take 1 tabletby mouth twice a day 180 Tablet 2 Lisinopril 10 MG Oral Tablet (Prinivil) TAKE 1 TABLET DAILY WITH 20MG DOSE FOR A TOTAL DOSE OF 30MG A DAY 90 Tablet 1 Montelukast Sodium 10 MG Oral Tablet (Singulair) TAKE 1 TABLET DAILY 90 Tablet 1 Lisinopril 20 MG Oral Tablet (Prinivil) TAKE 1 TABLET DAILY WITH 10MG TABLET FOR TOTAL DOSE OF 30MG A DAY 90 Tablet 1 Levothyroxine Sodium 112 MCG Oral Tablet (Levoxyl) Take 1 Tablet by mouth in the morning. (at least 30 min prior to breakfast or other meds). 90 Tablet 3 Amitriptyline HCl 25 MG Oral Tablet (Elavil) take 1 tablet by mouth at bedtime 90 Tablet 3 oxyCODONE HCl 5 MG Oral Tablet (Oxy IR) Take 1 Tablet by mouth every 8 hours as needed for Pain, Severe. 15 Tablet 0 HYDROcodone-Acetaminophen 5-325 MG Oral Tablet Take 1 Tablet by mouth every 6 hours as needed for Pain, Severe. 10 Tablet 0 No current facility-administered medications for this visit. SUBJECTIVE: patient in pain, unable to fully extend elbow Pain Rating: Patient has complaints of Pain. Location Left elbow 5/10 on [facility] FACES Pain Scale HPI/Onset of Complaint: patient fell on 12/26/2022 suffering fracture of left elbow. She underwent ORIF of olecranon and radial head replacement on 01/07/2023. Patient is referred to OT this date for motion, edema control and brace wearing schedule. 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 Able to oppose thumb to index finger. Patient fit with compression gloves for comfort and edema control. Patient was educated on donning and doffing gloves, as well as assessment of skin for irritation, circulation and sensation when wearing gloves. Instructed to remove gloves with any pain, discomfort or change in sensation/circulation. Patient fit with left edema gloves, size large, to be worn for comfort. Demonstrated understanding of donning and doffing instructions. Reported good fit and an increase in comfort. ~~~~~~~~~~~~~~~~~~~~~~~~~~~~~~~~~~~~~~~~~~~~~~~~~~~~~~~~~~~~~~ ~~~~~~~~~~~~~~~~~~~~~~~~~~~~~~~~~~~~~~~~~~~~~~~~~~~~~~~~~~~~~~ UNTIMED SERVICES: 15 minutes evaluation TIMED SERVICES: 20 minutes Therapeutic Exercises: Compression glove, Scar massage, AAROM, AROM and PROM ~~~~~~~~~~~~~~~~~~~~~~~~~~~~~~~~~~~~~~~~~~~~~~~~~~~~~~~~~~~~~~ ~~~~~~~~~~~~~~~~~~~~~~~~~~~~~~~~~~~~~~~~~~~~~~~~~~~~~~~~~~~~~~ 20 MINUTES TOTAL TIMED CODES PATIENT EDUCATION AND HOME EXERCISE PROGRAM: Person(s) Taught: Patient and Family Member Topic: Edema Management, Splinting Schedule, Home Exercise Program and Discussed present condition,treatment rationale and progression of treatment Method: Verbal, Demonstration and Written Outcome: Patient verbalizes understanding and Patient demonstrates understanding Other: Type of ORTHOSIS Issued: na ASSESSMENT: Patient was cooperative, motivated, and actively participated in evaluation during treatment session. There were 3-5 performance deficits in physical, cognitive, or psychosocial areas as follows: Decreased ROM, Edema, Pain, Decreased strength and Decreased dexterity. These deficits identified result in activity limitations or restrictions. The patient does have comorbidities, as follows: obesity that affect occupational performance. Minimal or moderate modification of the task or assistance as follows: Minimal physical cues required to complete evaluation was necessary to completethe evaluation.Barriers to patient obtaining set goals include: Physical Rehabilitation Potential: fair. Current Problems that limit ADL function: Edema, Limited range of motion, Impaired strength, Pain and Post operative activity restrictions GOALS: Independent with home excercise program Touch all fingertips of left hand to palm Touch left thumb to small finger Increase left elbow flex/ext to 100/-20 Increase forearm rotation to 70/70 TREATMENT: Therapeutic Exercise Manual Therapy Therapeutic activity PLAN: Patient will benefit from skilled Occupational therapy services 2 visits over 4 weeks, as indicated, to address orthotic management, post operative management, scar management, edema control, progressive range of motion, strengthening, and pain management. After 4 weeks, patient to be transitioned to therapist closer to home. Maurice Martin OT 01/21/2023 Occupational Therapy, [place] [address] [place] [id number] Physician Signature documented in this encounter Plan of Treatment Upcoming Encounters Date Type Specialty Care Team Description 02/23/2023 Office Visit Orthopedics Bhupinder Ritter MD [address] [place] [id number] 08/04/2023 Office Visit Family Medicine Yaniv Plasencia DO [address] [place] [address] 12/15/2023 Office Visit Sleep Disorders [place] Kimmie Astorgat, DO [address] [place] [address] Scheduled Referrals Name Type Priority Associated Diagnoses Order Schedule OCCUPATIONAL THERAPY REFERRAL OP Referral Within 10 days (routine) Closed fracture of olecranon process of left ulna with routine healing, subsequent encounter Closed displaced fracture of head of left radius with routine healing, subsequent encounter Ordered: 01/21/2023 Health Maintenance Due Date Last Done Comments HPV/Co-Test 02/22/1988 Colonoscopy 2003 Fecal Occult Blood Test 2003 Sigmoidoscopy 2003 Depression Screening, Annual for Pts 12 and Over 02/12/2020 02/11/2019, 09/27/2014 (Discussed) COVID-19 Vaccine (3 - Pfizer series) 10/06/2020 08/11/2020, 07/21/2020 Cervical Cancer Screening 01/26/2022 Pap Smear 01/26/2022 01/26/2019, 05/30, 09/27/2014, Additional history exists Mammogram 12/02/2022 12/02/2021, 11/2021, 01/01/2021, Additional history exists Influenza Vaccine (FLU shot) (#1) 2023 04/03/2022, 03/18/2021, 03/30/2020, Additional history exists Albumin/Creatinine Ratio 06/06/2023 022, 01/20/2019, 11/06/2017, Additional history exists GFR 06/11/2023 12/10/2022, 11/28, 06/19/2021, Additional history exists CKD HGB USE SMARTSET 00280 12/11/202312/10, 12/20/2021, 06/05/2020, Additional history exists CKD PHOS USE SMARTSET 20035 12/11/202311/27, 12/20/2021, 06/05/2020, Additional history exists TSH 12/11/2023 12/10/2022, 11/28, 10/29/2021, Additional history exists Lipid Panel 01/21/2024 01/20/2019, 12/28, 11/06/2017, Additional history exists Cologuard 06/20/2025 06/20/2022, 05/29, 06/15/2022, Additional history exists Colorectal Cancer Screening 06/20/2025 Diabetes Screening 01/07/2026 01/07/2023, 0 01/07/2023, 12/10/2022, Additional history exists DTaP,Tdap,and Td Vaccines (3 - Td or Tdap) 12/04/2029 12/05/2019, 08/14/2009 Hepatitis B Completed 11/16/2013, 06/30, 05/18/2013 Zoster Vaccines Completed 02/06/2020, 12/05/2019 Pneumococcal Vaccine: Pediatrics (0 to 5 Years) and At-Risk Patients (6 to 64 Years) Completed 06/06/2022, 09/28/1999 GARDASIL-HPV IMMUNIZATION SERIES Aged Out No longer eligible based on patient's age to complete this topic MENINGOCOCCAL (MENACTRA/MENVEO) Aged Out No longer eligible based on patient's age to complete this topic documented as of this encounter Medical Devices Implanted Type Area Ropewalk Rope Maker Device Identifier Shelf Expiration Date Model / Serial / Lot Envista Hydrophobic Acrylic Intraocular Lens Implanted:Qty: 1 on 06/17/2022 by Ceasar Valentine MD at [facility] Left: Eye [employer] 05/28/2024 [id number] / [id number] / [id number] Envista Toric Intraocular Lens Implanted:Qty: 1 on 07/01/2022 by Ceasar Valentine MD at OR [facility] Right: Eye [employer] 03/28/2023 [id number] / [id number] Align Radial Head And Lock Screw, 22mm Implanted:Qty: 1 on 01/07/2023 by Bhupinder Ritter [place] [facility] [place] Elbow [employer] 04/22/2027 [id number] / / [id number] documented as of this encounter Visit Diagnoses Diagnosis Closed displaced fracture of head of left radius, initial encounter- Primary Closed fracture of olecranon process of left ulna, initial encounter documented in this encounter Advance Directives Latest [...] the patient have Health Care Power of Micro Computer Specialist? No No Code 06/17/2022 11:34 AM 06/17/2022 5:37 PM Th is order reflects the patients wishes and were consensually agreed upon. Question Answer Comments Discussion of Advance Directives occurred with: Patient Does the patient have a Living Will? No Does the patient have Health Care Power of Micro Computer Specialist? No Full Code 02/03/2013 1:43 AM 02/15/2013 4:51 PM This o rder reflects the patients wishes and were consensually agreed upon. Care Teams Automation Engineer Relationship Specialty Start Date End Date Yaniv Plasencia, DO [address] [place] [address] PCP - General Family Medicine 07/01/16 documented as of this encounter
--- OUTSIDE RECORDS SUMMARY | 2023-07-12 11:43 | External Medical Summary | Summary of Care ---
Author Name Unknown Organization [facility] Address [address] [place] [address] Phone [phone] Care Team Providers Care Ocular Care Technologist Name Role Phone Yaniv Plasencia DO Primary Care Provider [phone] Reason for Visit * Reason Comments Follow Up Lt elbow Encounter Details Date Type Department Care Team (Late st Contact Info) Description 06/01/2023 10:30 AM EST Office Visit Orthopaedics, [facility] [address] [place] [address] Bhupinder Ritter MD [address] [place] [id number] Closed displaced fracture of head of left radius with routine healing, subsequent encounter*; Closed fracture of olecranon process of left ulna with routine healing, subsequent encounter Allergies No known active allergiesdocumented as of this encounter (statuses as of 06/01/2023) Medications Medication Sig Dispensed Refills Start Date [...] stage III (GFR 30-59 ml/min) ([facility]),Type 2 diabetes mellitus with hemoglobin A1c goal of less than 7.0% ([facility]) TAKE 1 TABLET DAILY WITH 10MG TABLET FOR TOTAL DOSE OF 30MG A DAY 90 Tablet 3 03/05/2023 Active Lisinopril 10 MG Oral Tablet (Prinivil)Indicati ons:Kidney disease, chronic, stage III (GFR 30-59 ml/min) ([facility]),Type 2 diabetes mellitus with hemoglobin A1c goal of less than 7.0% ([facility]) TAKE 1 TABLET DAILY WITH 20MG [...] as of this encounter (statuses as of 06/01/2023) Active Problems Problem Noted Date Diagnosed Date [...] as of this encounter (statuses as of 06/01/2023) Resolved Problems Problem Noted Date Diagnosed Date [...] as of this encounter (statuses as of 06/01/2023) Immunizations Name Administration Dates Next Due COVID-19 mRNA, LNP-s, No Pre serve, 2-Dose Series (Pfizer) 08/11/2020,07/21/2020 H1N1 2009 Influenza, IM 08/14/2009 Hepatitis B, 20+ yrs 11/16/2013,07/20/2013,05/18 Pneumococcal Conjugate Vacci ne, 20-valent ([id number]) 06/06/2022 Pneumococcal Polysaccharide PPV23 (Pneumovax) 09/28/1999 Seasonal [...] on file documented as of this encounter Progress Notes * Cami Sam ATC - 06/01/2023 10:27 AM EST Asya Fontenot ATC, am scribing for, and in the presence of, Dr Bhupinder Ritter MD. Name : Susannah Vasquez Date : 06/01/2023 Diagnosis: Left Elbow Olecranon Fracture with Displaced Left Radial Head Neck Fracture Procedure: Open Reduction Internal Fixation Left Elbow Olecranon Fracture with Left Elbow Radial Head Replacement Date of initiation of symptoms / Date of Procedure: 01/07/23 Duration of symptoms / since Procedure: 4.5 months Severity: Pain Scale - 5/10 Brief History of events since last encounter: Patient has been progressing post-operatively. Describes pain well controlled. No significant discomfort except for when working on motion. She describes improvement in stiffness of fingers and hand swelling following medrol dose pack. She is happy to be able to touch her nose. She is performing formal therapy once per week closer to home. Plan on 1 more upcoming visit prior to discharge. Patientdenies numbness, tingling, fever, chills, and other complaints or concerns. EMG: NA Physical Exam: HAND / WRIST / ELBOW EXAM: There were no vitals filed for this visit. There is no height or weight on file to calculate BMI. General: Patient is pleasant and cooperative, oriented to time place and person. Appears stated ageand in no acute distress. No peripheral edema or swelling. Skin intact. Elbow: well healed incision, no erythema, warmth, bleeding or drainage. No tenderness to palpation.Finger stiffness but improving, Satisfactory wrist motion. Approx 50 degrees arc elbow motion (-50 to 100 degrees). No pain with forearm rotation. Neurovascularly intact distally. Radiology: obtained and reviewed today with hardware in place and maintained improved alignment Injection: None. Assessment : Susannah Vasquez is a 62 year old year-old [id number] female with Left Elbow Olecranon Fracture with Displaced Left Radial Head Neck Fracture status post Open Reduction Internal Fixation Left Elbow Olecranon Fracture with Left Elbow Radial Head Replacement on 01/07/23, 4.5 month Plan: Complete discussion of diagnosis, prognosis, and treatment options including risks and benefits hasagain taken place on this encounter. Recommend continued motion exercises especially for fingers. 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 Plan will be for patient to follow up in 6 weeks. Patient has demonstrated understanding, with all current questions answered, and is satisfied with the plan of care. Patient has been instructed to contact the office with any questions or concerns that may arise. Steven Ritter MD [facility] Orthopaedics [facility] [address] [facility] [address] [facility] [address] [place] [address] I, Dr. Ritter, was physically present and personally performed the services described in this documentation as scribed for me by Cami Sam ATC in my presence. I attest that this note is both accurate and complete. Bhupinder Ritter MD FAAOS Hand & Upper Extremity Surgeon [facility] documented in this encounter Plan of Treatment Upcoming Encounters Date Type Department Care Team (Late st Contact Info) Description 08/04/2023 2:40 PM EST Office Visit Family Practice [facility] [address] [place] [address] Yaniv Plasencia, DO [address] [place] [address] 01/04/2024 10:30 AM EDT [facility] [address] [place] [address] Bhupinder Ritter MD [address] [place] [address] 04/07/2024 3:00 PM EDT Office Visit Sleep Disorders [facility] [address] [facility] [place] [id number] Kimmie Billingsley, DO [address] [facility] [place] [id number] Pending Results Name Type Priority Associated Diagnoses Date /Time XR ELBOW 3 OR MORE VIEWS Medical Imaging Routine Closed fracture of olecranon process of left ulna with routine healing, subsequent encounter Closed displaced fracture of head of left radius with routine healing, subsequent encounter 06/01/2023 10:17 AM EST Health Maintenance Due Date Last Done Comments Colonoscopy 2003 Fecal Occult Blood Test 2003 Sigmoidoscopy 2003 Depression Screening 02/12/2020 02/11/2019, 09/27/2014 (Discussed) Mammogram 12/02/2022 12/02/2021, 010 11/2021, 01/01/2021, Additional history exists DXA Scan 2023 COVID-19 Vaccine ( season) 2023 08/11/2020, 07/21/2020 Influenza Vaccine (FLU shot) (#1) 2023 04/03/2022, 03/18/2021, 03/30/2020, Additional history exists Albumin/Creatinine Ratio 06/06/2023 022, 01/20/2019, 11/06/2017, Additional history exists GFR 06/11/2023 12/10/2022, 11/28, 06/19/2021, Additional history exists CKD HGB USE SMARTSET 43275 12/11/202312/10, 12/20/2021, 06/05/2020, Additional history exists CKD PHOS USE SMARTSET 24023 12/11/202311/27, 12/20/2021, 06/05/2020, Additional history exists TSH [...] this encounter Medical Devices Implanted Type Area Bitumastic Applier Device Identifier Shelf Expiration Date Model / Serial / Lot Envista Hydrophobic Acrylic Intraocular Lens Implanted:Qty: 1 on 06/17/2022 by Ceasar Valentine MD at OR [facility] Left: Eye [employer] 05/28/2024 [id number] / [id number] / [id number] Envista Toric Intraocular Lens Implanted:Qty: 1 on 07/01/2022 by Ceasar Valentine MD at OR [facility] Right: Eye [employer] 03/28/2023 [id number] / [id number] / [id number] Align Radial Head And Lock Screw, 22mm Implanted:Qty: 1 on 01/07/2023 by Bhupinder Ritter MD at OR [facility] Left: Elbow [employer] 04/22/2027 [id number] / / [id number] documented as of this encounter Visit Diagnoses Diagnosis Closed displaced fracture of head of left radius with routine healing, subsequent encounter- Primary Closed fracture of olecranon process of left ulna with routine healing, subsequent encounter documented in this encounter Advance Directives [...] the patient have Health Care Power of Validation Specialist? No No Code 06/17/2022 11:34 AM 06/17/2022 5:37 PM Th is order reflects the patients wishes and were consensually agreed upon. Question Answer Comments Discussion of Advance Directives occurred with: Patient Does the patient have a Living Will? No Does the patient have Health Care Power of Validation Specialist? No Full Code 02/03/2013 1:43 AM 02/15/2013 4:51 PM This o rder reflects the patients wishes and were consensually agreed upon. Care Teams Ocular Care Technologist Relationship Specialty Start Date End Date Yaniv Plasencia DO [address] [place] [address] PCP - General Family Medicine 07/01/16 documented as of this encounter
--- OUTSIDE RECORDS SUMMARY | 2023-07-12 11:43 | External Medical Summary | Summary of Care ---
Author Name Unknown Organization [facility] Address [address] [place] [address] Phone [phone] Care Team Providers Care Loop Drier Operator Name Role Phone ArchieYaniv lares Primary Care Provider [phone] Reason for Referral * Evaluate & Treat - Unlimited Visits (Within 10 days (routine)) - Pending Review Specialty Diagnoses / Procedures Referred By Yinka phillips Referred To Contact Occupational Medicine / Occupational Therapy Diagnoses Closed fracture of olecranon process of left ulna with routine healing, subsequent encounter Closed displaced fracture of head of left radius with routine healing, subsequent encounter Bhupinder Ritter MD [address] [place] [id number] Referral ID Status Reason Start Date Expiration Date Visits Requested Visits Authorized [id number] Pending Review Specialty Services Required 02/23/[phone] Question Answer Referral Priority Within 10 days (routine) Comments S/p Open Reduction Internal Fixation Left Elbow Olecranon Fracture with Left Elbow Radial Head Replacement on 01/07/23 Evaluate and treat Edema control. Scar management Aggressive finger motion. Active and passive wrist motion. Active and gentle passive elbow motion and forearm rotation. Will plan to begin strengthening after follow up in 6 weeks. Reason for Visit * Reason Comments Post-Op Lt elbow Encounter Details Date Type Department Care Team Description 02/23/2023 Office Visit Orthopaedics, [facility] [address] [place] [address] Bhupinder Ritter MD [address] [place] [id number] Closed fracture of olecranon process of left ulna with routine healing, subsequent encounter*; Closed displaced fracture of head of left radius with routine healing, subsequent encounter Allergies No known active allergiesdocumented as of this encounter (statuses as of 02/23/2023) Medications Medication Sig Dispensed Refills Start Date [...] disease, chronic, stage III (GFR 30-59 ml/min) (HCC),Type 2 diabetes mellitus with hemoglobin A1c goal [...] disease, chronic, stage III (GFR 30-59 ml/min) (HCC),Type 2 diabetes mellitus with hemoglobin A1c goal [...] as of this encounter (statuses as of 02/23/2023) Active Problems Problem Noted Date Closed fracture [...] as of this encounter (statuses as of 02/23/2023) Resolved Problems Problem Noted Date Resolved Date [...] as of this encounter (statuses as of 02/23/2023) Immunizations Name Administration Dates Next Due COVID-19 mRNA, LNP-s, No Pre serve, 2-Dose Series (Bvents) 08/11/2020,07/21/2020 H1N1 2009 Influenza, IM 08/14/2009 Hepatitis B, 20+ yrs 11/16/2013,07/20/2013,05/18 Pneumococcal Conjugate Vacci ne, 20-valent ([id number]) 06/06/2022 Pneumococcal Polysaccharide PPV23 (Pneumovax) 09/28/1999 Seasonal [...] Progress Notes * Cami Sam ATC - 02/23/2023 10:30 AM EDT IAsya ATC, am scribing for, and in the presence of, Dr Bhupinder Ritter MD. Name : Susannah Vasquez Date : 02/23/2023 Diagnosis: Left Elbow Olecranon Fracture with Displaced Left Radial Head Neck Fracture Procedure: Open Reduction Internal Fixation Left Elbow Olecranon Fracture with Left Elbow Radial Head Replacement Date of initiation of symptoms / Date of Procedure: 01/07/23 Duration of symptoms / since Procedure: 6.5 week(s) Severity: Pain Scale - 3/10 Brief History of events since last encounter: Patient has been progressing post-operatively. Describes pain well controlled. No significant discomfort except for when working on motion. She describes continued swelling and stiffness of fingers. Patient denies numbness, tingling, fever, chills, and other complaints or concerns. Patient would like to return to work and attend formal therapy closer to home. EMG: NA Physical Exam: HAND / WRIST / ELBOW EXAM: There were no vitals filed for this visit. There is no height or weight on file to calculate BMI. General: Patient is pleasant and cooperative, oriented to time place and person. Appears stated ageand in no acute distress. No peripheral edema or swelling. Skin intact. Elbow: well healed incision, scab present, no erythema, warmth, bleeding or drainage. No tendernessto palpation. Diffuse swelling left hand. Finger stiffness. Satisfactory wrist motion. Approx 50 degrees arc elbow motion (-40 to 90 degrees). 60 degrees supination. Pronation to neutral. Neurovascularly intact distally. Radiology: obtained and reviewed today with hardware in place and maintained improved alignment Pathology: none Injection: None. Assessment : Susannah Vasquez is a 62 year old year-old wlibt-einh-hvjsraxj female with Left Elbow Olecranon Fracture with Displaced Left Radial Head Neck Fracture status post Open Reduction Internal Fixation Left Elbow Olecranon Fracture with Left Elbow Radial Head Replacement on 01/07/23, 6.5 week(s). Plan: Complete discussion of diagnosis, prognosis, and treatment options including risks and benefits hasagain taken place on this encounter. Discontinue use of elbow brace. To see CHT today for motion progression and edema glove. OT referral placed for patient to attend formal therapy closer to home. Plan will be for patient to follow up in 6 weeks. Return to work note placed with no heavy or repetitive use of left arm. Patient has demonstrated understanding, with all current questions answered, and is satisfied with the plan of care. Patient has been instructed to contact the office with any questions or concerns that may arise. Steven Ritter MD [facility] Orthopaedics [facility] [address] [facility] [address] Orthopaedics, [facility] [address] [place] [address] I, Dr. Ritter, was physically present and personally performed the services described in this documentation as scribed for me by Cami Sam ATC in my presence. I attest that this note is both accurate and complete. Bhupinder Ritter MD FAAOS Hand & Upper Extremity Surgeon [facility] documented in this encounter Plan of Treatment Upcoming Encounters Date Type Specialty Care Team Description 04/20/2023 Office Visit Orthopedics Bhupinder Ritter MD [address] [place] [address] 08/04/2023 Office Visit Family Medicine Yaniv Plasencia DO [address] [place] [address] 12/15/2023 Office Visit Sleep Disorders Kimmie Billingsley, DO [address] [place] [phone] Pending Results Name Type Priority Associated Diagnoses Date /Time XR ELBOW 3 OR MORE VIEWS Medical Imaging Routine Closed fracture of olecranon process of left ulna with routine healing, subsequent encounter 02/23/2023 10:29 AM EDT Scheduled Referrals Name Type Priority Associated Diagnoses Order Schedule OCCUPATIONAL THERAPY REFERRAL OP Referral Within 10 days (routine) Closed fracture of olecranon process of left ulna with routine healing, subsequent encounter Closed displaced fracture of head of left radius with routine healing, subsequent encounter Ordered: 02/23/2023 Health Maintenance Due Date Last Done Comments Colonoscopy 2003 Fecal Occult Blood Test 2003 Sigmoidoscopy 2003 Depression Screening, Annual for Pts 12 and Over 02/12/2020 02/11/2019, 09/27/2014 (Discussed) COVID-19 Vaccine (3 - Pfizer series) 10/06/2020 08/11/2020, 07/21/2020 Mammogram 12/02/2022 12/02/2021, 11/2021, 01/01/2021, Additional history exists DXA Scan 2023 Influenza Vaccine (FLU shot) (#1) 2023 04/03/2022, 03/18/2021, 03/30/2020, Additional history exists Albumin/Creatinine Ratio 06/06/2023 022, 01/20/2019, 11/06/2017, Additional history exists GFR 06/11/2023 12/10/2022, 11/28, 06/19/2021, Additional history exists CKD HGB USE SMARTSET 58200 12/11/202312/10, 12/20/2021, 06/05/2020, Additional history exists CKD PHOS USE SMARTSET 97777 12/11/202311/27, 12/20/2021, 06/05/2020, Additional history exists TSH 12/11/2023 12/10/2022, 11/28, 10/29/2021, Additional history exists Lipid Panel 01/21/2024 01/20/2019, 12/28, 11/06/2017, Additional history exists Cologuard 06/20/2025 06/20/2022, 05/29, 06/15/2022, Additional history exists Colorectal Cancer Screening 06/20/2025 Diabetes Screening 01/07/2026 01/07/2023, 0 01/07/2023, 12/10/2022, Additional history exists DTaP,Tdap,and Td Vaccines (3 - Td or Tdap) 12/04/2029 12/05/2019, 08/14/2009 Hepatitis B Completed 11/16/2013, 06/30, 05/18/2013 Cervical Cancer Screening Discontinued Pap Smear Discontinued [...] this encounter Medical Devices Implanted Type Area Fitness Director Device Identifier Shelf Expiration Date Model / Serial / Lot Envista Hydrophobic Acrylic Intraocular Lens Implanted:Qty: 1 on 06/17/2022 by Ceasar Valentine MD at OR [facility] Left: Eye [employer] 05/28/2024 [id number] / [id number] / [id number] [employer] Toric Intraocular Lens Implanted:Qty: 1 on 07/01/2022 by Ceasar Valentine MD at OR [facility] Right: Eye [employer] 03/28/2023 [id number] / [id number] / [id number] Align Radial Head And Lock Screw, 22mm Implanted:Qty: 1 on 01/07/2023 by Bhupinder Ritter MD [place] [facility] Left: Elbow [employer] 04/22/2027 [id number]-22 0 / / [id number] documented as of this encounter Visit Diagnoses Diagnosis Closed fracture of olecranon process of left ulna with routine healing, subsequent encounter- Primary Closed displaced fracture of head of left radius with routine healing, subsequent encounter documented in [...] the patient have Health Care Power of Rare/Endangered Species Specialist? No No Code 06/17/2022 11:34 AM 06/17/2022 5:37 PM Th is order reflects the patients wishes and were consensually agreed upon. Question Answer Comments Discussion of Advance Directives occurred with: Patient Does the patient have a Living Will? No Does the patient have Health Care Power of Rare/Endangered Species Specialist? No Full Code 02/03/2013 1:43 AM 02/15/2013 4:51 PM This o rder reflects the patients wishes and were consensually agreed upon. Care Teams Loop Drier Operator Relationship Specialty Start Date End Date Yaniv Plasencia, DO [address] [facility] [place] [address] PCP - General Family Medicine 07/01/16 documented as of this encounter
--- OUTSIDE RECORDS SUMMARY | 2023-07-12 11:43 | External Medical Summary | Summary of Care ---
Author Name Unknown Organization [facility] Address [address] [place] [address] Phone [phone] Care Team Providers Care Mud Car Worker Name Role Phone Yaniv Plasencia DO Primary Care Provider [phone] Reason for Visit * Reason Comments Post-Op Olecranon fracture Encounter Details Date Type Department Care Team Description 02/23/2023 Rehab Services Occupational Therapy, [facility] [address] [place] [address] Maurice Martin, OT [address] [place] [address] Closed displaced fracture of head of left radius, initial encounter* Allergies No known active allergiesdocumented as of [...] stage III (GFR 30-59 ml/min) ([facility]),Type 2 diabetes mellitus with hemoglobin A1c goal of less than 7.0% ([facility]) TAKE 1 TABLET DAILY WITH 20MG DOSE FOR A TOTAL DOSE OF 30MG A DAY 90 Tablet 1 09/10/2022 Active Montelukast Sodium 10 MG Oral Tablet (Singulair)Indicat ions:Chronic rhinitis TAKE 1 TABLET DAILY 90 Tablet 1 09/10/2022 Active Lisinopril 20 MG Oral Tablet (Prinivil)Indicati ons:Kidney disease, chronic, stage III (GFR 30-59 ml/min) ([facility]),Type 2 diabetes mellitus with hemoglobin A1c goal of less than 7.0% ([facility]) TAKE 1 TABLET DAILY WITH 10MG TABLET [...] yrs 11/16/2013,07/20/2013,05/18 Pneumococcal Conjugate Vacci ne, 20-valent ([id number]) 06/06/2022 Pneumococcal Polysaccharide PPV23 (Pneumovax) 09/28/1999 Seasonal [...] * Patient Instructions* Maurice Martin OT - 02/23/2023 12:41 PM EDT Images from the original note were not included. documented in this encounter Progress Notes * Maurice Martin OT - 02/23/2023 12:37 PM EDT OUTPATIENT OCCUPATIONAL THERAPY PROGRESS NOTE Occupational Therapy, [facility] [address] [facility] [address] Patient Name: Susannah Vasquez Date: 02/23/2023 Visit Number: 2 Subjective: patient reports compliance with HEP and orthosis wear Pain Rating: Patient has complaints of Pain. Location left elbow 5/10 on [facility] Pain Scalewith elbow flexion and forearm supination ~~~~~~~~~~~~~~~~~~~~~~~~~~~~~~~~~~~~~~~~~~~~~~~~~~~~~~~~~~~~~~ ~~~~~~~~~~~~~~~~~~~~~~~~~~~~~~~~~~~~~~~~~~~~~~~~~~~~~~~~~~~~~~ UNTIMED SERVICES: TIMED SERVICES: 20 minutes Therapeutic Exercises: elbow, forearm and finger PROM, pellet preparation operator strengthening with yellow foam for fingers ~~~~~~~~~~~~~~~~~~~~~~~~~~~~~~~~~~~~~~~~~~~~~~~~~~~~~~~~~~~~~~ ~~~~~~~~~~~~~~~~~~~~~~~~~~~~~~~~~~~~~~~~~~~~~~~~~~~~~~~~~~~~~~ 20 MINUTES TOTAL TIMED CODES Objective Findings: ELBOW Right Left Active Passive Active Passive Flexion 90 Extension -45 Pronation 90 Supination 35 Total Arc of elbow motion 45-90 Patient with significant stiffness of fingers, wrist and thumb. Able to oppose thumb to small finger finger. Patient fit with compression sleeve for comfort and edema control. Patient was educated ondonning and doffing gloves, as well as assessment of skin for irritation, circulation and sensationwhen wearing sleeve. Instructed to remove sleeve with any pain, discomfort or change in sensation/ci rculation. Treatment Sequence: progression of TE 1 set of TE PATIENT EDUCATION AND HOME EXERCISE PROGRAM: Person(s) Taught: Patient and Family Member Topic: Edema Management, Home Exercise Program , and Discussed present condition, treatment rationale and progression of treatment Method: Verbal, Demonstration, and Written Outcome: Patient verbalizes understanding and Patient demonstrates understanding Other: SPLINT ISSUED: na ASSESSMENT: patient with increase in finger and forearm motion this date. Continues to be significantly stiff with elbow motion and finger motion. PLAN: Patient is appropriate for OPOT to address limitations in motion, strength, and function of left UE following above procedure, however she will be following up with therapy closer to home to establish formal POC and convenient location. Maurice Martin OT 02/23/2023 Occupational Therapy, [facility] [address] [place] [address] documented in this encounter Plan of Treatment Upcoming Encounters Date Type Specialty Care Team Description 04/20/2023 Office Visit Orthopedics Bhupinder Ritter MD [address] [facility] [place] [address] 08/04/2023 Office Visit Family Medicine Yaniv Plasencia DO [address] [place] [facility] [place] [address] 12/15/2023 Office Visit Sleep Disorders Kimmie Billingsley DO [address] [place] [address] Health Maintenance Due Date Last Done Comments [...] Additional history exists CKD HGB USE SMARTSET 54189 12/11/202312/10, 12/20/2021, 06/05/2020, Additional history exists CKD PHOS USE SMARTSET 95674 12/11/202311/27, 12/20/2021, 06/05/2020, Additional history exists TSH [...] this encounter Medical Devices Implanted Type Area Software Analyst Device Identifier Shelf Expiration Date Model / Serial / Lot Envista Hydrophobic Acrylic Intraocular Lens Implanted:Qty: 1 on 06/17/2022 by Ceasar Valentine MD at OR [facility] Left: Eye [employer]OM[employer] 05/28/2024 [id number] / [id number] / [id number] Envista Toric Intraocular Lens Implanted:Qty: 1 on 07/01/2022 by Ceasar Valentine MD at OR [facility] Right: Eye [employer]OM[employer] 03/28/2023 [id number] / [id number] / [id number] Align Radial Head And Lock Screw, 22mm Implanted:Qty: 1 on 01/07/2023 [place] Bhupinder R[place] [facility] [place] Elbow [employer] 04/22/2027 [id number]-22 [id number] / / [id number] documented as of this encounter Visit Diagnoses Diagnosis Closed displaced fracture of head of left radius, initial encounter- Primary documented in this encounter Advance Directives Latest [...] the patient have Health Care Power of Building Operator? No No Code 06/17/2022 11:34 AM 06/17/2022 5:37 PM Th is order reflects the patients wishes and were consensually agreed upon. Question Answer Comments Discussion of Advance Directives occurred with: Patient Does the patient have a Living Will? No Does the patient have Health Care Power of Building Operator? No Full Code 02/03/2013 1:43 AM 02/15/2013 4:51 PM This o rder reflects the patients wishes and were consensually agreed upon. Care Teams Mud Car Worker Relationship Specialty Start Date End Date Yaniv Plasencia, DO [address] [place] [address] PCP - General Family Medicine 07/01/16 documented as of this encounter
--- OUTSIDE RECORDS SUMMARY | 2023-07-12 11:43 | External Medical Summary | Summary of Care ---
Author Name Unknown Organization [facility] Address [address] [place] [address] Phone [phone] Care Team Providers Care Appointment Scheduler Name Role Phone Yaniv Plasencia DO Primary Care Provider [phone] Reason for Visit * Reason Onset Date Comments Health Maintenance 07/09/2023 Encounter Details Date Type Department Care Team (Late st Contact Info) Description 07/09/2023 Telephone Family Practice [facility] [place] [address] [place] [address] Yaniv Plasencia DO [address] [facility] [place] [address] Health Maintenance Allergies No known active allergiesdocumented as of this encounter (statuses as of 07/09/2023) Medications Medication Sig Dispensed Refills Start Date [...] disease, chronic, stage III (GFR 30-59 ml/min) ([facility]),Type 2 diabetes mellitus with hemoglobin A1c goal of less than 7.0% ([facility]) TAKE 1 TABLET DAILY WITH 10MG TABLET FOR TOTAL DOSE OF 30MG A DAY 90 Tablet 3 03/05/2023 Active Lisinopril 10 MG Oral Tablet (Prinivil)Indicati ons:Kidney disease, chronic, stage III (GFR 30-59 ml/min) ([facility]),Type 2 diabetes mellitus with hemoglobin A1c goal [...] as of this encounter (statuses as of 07/09/2023) Active Problems Problem Noted Date Diagnosed Date [...] as of this encounter (statuses as of 07/09/2023) Resolved Problems Problem Noted Date Diagnosed Date [...] as of this encounter (statuses as of 07/09/2023) Immunizations Name Administration Dates Next Due COVID-19 mRNA, LNP-s, No Pre serve, 2-Dose Series (Pfizer) 08/11/2020,07/21/2020 H1N1 2009 Influenza, IM 08/14/2009 Hepatitis B, 20+ yrs 11/16/2013,07/20/2013,05/18 Pneumococcal Conjugate Vacci ne, 20-valent ([id number]) 06/06/2022 Pneumococcal Polysaccharide PPV23 (Pneumovax) 09/28/1999 Seasonal [...] as of this encounter Miscellaneous Notes * Telephone Encounter - Carolin Arce LPN [...] (FLU shot) (1) 02/27/2023 COVID-19 Vaccine (3 - season) 2023 Albumin/Creatinine Ratio 06/06/2023 GFR 06/11/2023 Labs add lipid Dexa mamm Care Gap Outreach Action Taken: Left message documented in this encounter Plan of Treatment Upcoming Encounters Date Type Department Care Team (Late st Contact Info) Description 08/04/2023 2:40 PM EST Office Visit Family Practice [facility] [address] [facility] [place] [address] Yaniv Plasencia, DO [address] [facility] [place] [address] 01/04/2024 10:30 AM EDT Office Visit Orthopaedics, [facility] [address] [place] [address] Bhupinder Ritter MD [address] [place] [address] 04/07/2024 3:00 PM EDT Office Visit Sleep Disorders Ctr [facility] [address] [place] [phone] Kimmie Billingsley, [address] [place] [address] Health Maintenance Due Date Last Done Comments Colonoscopy 2003 Fecal Occult Blood Test 2003 Sigmoidoscopy 2003 Depression Screening 02/12/2020 02/11/2019, 09/27/2014 (Discussed) Mammogram 12/02/2022 12/02/2021, 11/2021, 01/01/2021, Additional history exists DXA Scan 2023 COVID-19 Vaccine (3 - season) 2023 08/11/2020, 07/21/2020 Influenza Vaccine (FLU shot) (#1) 2023 04/03/2022, 03/18/2021, 03/30/2020, Additional history exists Albumin/Creatinine Ratio 06/06/2023 022, 01/20/2019, 11/06/2017, Additional history exists GFR 06/11/2023 12/10/2022, 11/28, 06/19/2021, Additional history exists CKD HGB USE SMARTSET 78893 12/11/202312/10, 12/20/2021, 06/05/2020, Additional history exists CKD PHOS USE SMARTSET 58843 12/11/202311/27, 12/20/2021, 06/05/2020, Additional history exists TSH [...] this encounter Medical Devices Implanted Type Area Surface Water Manager Device Identifier Shelf Expiration Date Model / Serial / Lot Envista Hydrophobic Acrylic Intraocular Lens Implanted:Qty: 1 on 06/17/2022 by Ceasar Valentine MD at OR [facility] Left: Eye [employer]OM[employer] 05/28/2024 [id number] / [id number] / [id number] Envista Toric Intraocular Lens Implanted:Qty: 1 on 07/01/2022 by Ceasar Valentine MD at OR [facility] Right: Eye [employer]OM[employer] 03/28/2023 [id number] 25 / [id number] / [id number] Align Radial Head And Lock Screw, 22mm Implanted:Qty: 1 on 01/07/2023 by Bhupinder R[place] [facility] [place] Elbow [employer] 04/22/2027 [id number]-RHI-22 0 / / [id number] documented as of this encounter Advance Directives Latest Code Status [...] the patient have Health Care Power of Spanish Medical Interpreter? No No Code 06/17/2022 11:34 AM 06/17/2022 5:37 PM Th is order reflects the patients wishes and were consensually agreed upon. Question Answer Comments Discussion of Advance Directives occurred with: Patient Does the patient have a Living Will? No Does the patient have Health Care Power of Spanish Medical Interpreter? No Full Code 02/03/2013 1:43 AM 02/15/2013 4:51 PM This o rder reflects the patients wishes and were consensually agreed upon. Care Teams Appointment Scheduler Relationship Specialty Start Date End Date Yaniv Plasencia DO [address] [place] [address] PCP - General Family Medicine 07/01/16 documented as of this encounter
--- OUTSIDE RECORDS SUMMARY | 2023-07-12 11:43 | External Medical Summary | Summary of Care ---
Author Name Unknown Organization [facility] Address [address] [place] [address] Phone [phone] Care Team Providers Care University Internship Name Role Phone Yaniv Plasencia DO Primary Care Provider [phone] Reason for Visit * Reason Comments Limited Range Of Motion Left elbow Encounter Details Date Type Department Care Team (Late st Contact Info) Description 04/20/2023 9:00 AM EDT Rehab Services Occupational Therapy, [facility] [address] [place] [address] Maurice Martin, OT [address] [place] [address] Closed displaced fracture of head of left radius, initial encounter* Allergies No known active allergiesdocumented as of this encounter (statuses as of 04/20/2023) Medications Medication Sig Dispensed Refills Start Date [...] a day 180 Tablet 2 07/25/2022 Active Levothyroxine Sodium 112 MCG Oral Tablet [...] chronic, stage III (GFR 30-59 ml/min) ([facility]),Type 2 diabetes mellitus with hemoglobin A1c goal of less than 7.0% ([facility]) TAKE 1 TABLET DAILY WITH 10MG TABLET FOR TOTAL DOSE OF 30MG A DAY 90 Tablet 3 03/05/2023 Active Lisinopril 10 MG Oral Tablet (Prinivil)Indicati ons:Kidney disease, chronic, stage III (GFR 30-59 ml/min) ([facility]),Type 2 diabetes mellitus with hemoglobin A1c goal of less than 7.0% ([facility]) TAKE 1 TABLET DAILY WITH 20MG DOSE FOR A TOTAL DOSE OF 30MG A DAY 90 Tablet 3 03/05/2023 Active methylPREDNISolone 4 MG Oral Tablet Therapy Pack (Medrol Dosepack)Indicatio ns:Closed fracture of olecranon process of left ulna with routine healing, subsequent encounter,Closed displaced fracture of head of left radius with routine healing, subsequent encounter follow package directions 21 Tablet 0 04/20/2023 Active documented as of this encounter (statuses as of 04/20/2023) Active Problems Problem Noted Date Diagnosed Date [...] as of this encounter (statuses as of 04/20/2023) Resolved Problems Problem Noted Date Diagnosed Date [...] as of this encounter (statuses as of 04/20/2023) Immunizations Name Administration Dates Next Due COVID-19 mRNA, LNP-s, No Pre serve, 2-Dose Series (Pfizer) 08/11/2020,07/21/2020 H1N1 2009 Influenza, IM 08/14/2009 Hepatitis B, 20+ yrs 11/16/2013,07/20/2013,05/18 Pneumococcal Conjugate Vacci ne, 20-valent ([id number]) 06/06/2022 Pneumococcal Polysaccharide PPV23 (Pneumovax) 09/28/1999 Seasonal [...] as of this encounter Progress Notes * Maurice Martin, OT - 04/20/2023 12:44 PM EDT OUTPATIENT OCCUPATIONAL THERAPY PROGRESS NOTE Occupational Therapy, [place] [address] [address] [facility] [address] Patient Name: Susannah Vasquez Date: 04/20/23 Visit Number: 2 Subjective: patient does not have much motion in elbow and it is painful. Pain Rating: Patient has complaints of Pain. Location left elbow 5/10 on [facility] Pain Scalewith elbow flexion and forearm supination ~~~~~~~~~~~~~~~~~~~~~~~~~~~~~~~~~~~~~~~~~~~~~~~~~~~~~~~~~~~~~~ ~~~~~~~~~~~~~~~~~~~~~~~~~~~~~~~~~~~~~~~~~~~~~~~~~~~~~~~~~~~~~~ UNTIMED SERVICES: 12 minutes moist heat to left elbow with elbow extension and 1lb cuff weight applied for static stretch TIMED SERVICES: 20 minutes Therapeutic Exercises: contract relax exercises, elbow extension with limitation of shoulder compensation TA: fit with flexion glove. ~~~~~~~~~~~~~~~~~~~~~~~~~~~~~~~~~~~~~~~~~~~~~~~~~~~~~~~~~~~~~~ ~~~~~~~~~~~~~~~~~~~~~~~~~~~~~~~~~~~~~~~~~~~~~~~~~~~~~~~~~~~~~~ 20 MINUTES TOTAL TIMED CODES Objective Findings: ELBOW Right Left Active Passive Active Passive Flexion 105 Extension -35 Pronation 90 Supination 35 Total Arc of elbow motion 35-105 Patient with significant stiffness of fingers and elbow fit with flexion glove and educated use of modalities for pain management and for stiffess Treatment Sequence Heat with sustained stretch 1lb cuff weight at wrist for 10 minutes 5 x contract relax for left elbow with differing degrees of elbow flex/ext 10 sec hold 5 x wall crawl PATIENT EDUCATION AND HOME EXERCISE PROGRAM: Person(s) [...] stiff with elbow motion and finger motion. Will continue therapy closer to home. PLAN: Patient is appropriate for OPOT to address limitations in motion, strength, and function of left UE following above procedure, however she will be following up with therapy closer to home to establish formal POC and convenient location. Maurice Martin OT 04/20/23 Occupational Therapy, [facility] [address] [facility] [address] documented in this encounter Plan of Treatment Upcoming Encounters Date Type Department Care Team (Late st Contact Info) Description 06/01/2023 10:30 AM EST Office Visit Orthopaedics, [facility] [address] [place] [address] Bhupinder Ritter MD [address] [place] [address] 08/04/2023 2:40 PM EST Office Visit Family Practice [facility] [address] [facility] [place] [address] Yaniv Plasencia, DO [address] [facility] [place] [address] 04/07/2024 3:00 PM EDT Office Visit [facility] Disorders [facility] [address] [facility] [place] [phone] Kimmie Billingsley, DO [address] [facility] [place] [address] Health Maintenance Due Date Last Done Comments [...] Additional history exists CKD HGB USE SMARTSET 43259 12/11/202312/10, 12/20/2021, 06/05/2020, Additional history exists CKD PHOS USE SMARTSET 90124 12/11/202311/27, 12/20/2021, 06/05/2020, Additional history exists TSH 12/11/2023 12/10/2022, 11/28, 10/29/2021, Additional history exists Lipid Panel 01/21/2024 01/20/2019, 12/28, 11/06/2017, Additional history exists Cologuard 06/20/2025 06/20/2022, 05/29, 06/15/2022, Additional history exists Colorectal Cancer Screening 06/20/2025 Diabetes Screening 01/07/2026 01/07/2023, 0 01/07/2023, 12/10/2022, Additional history exists DTaP,Tdap,and Td Vaccines (3 - Td or Tdap) 12/04/2029 12/05/2019, 08/14/2009 Hepatitis B Completed 11/16/2013, 06/30, 05/18/2013 Diabetic Foot Exam Discontinued 09/13/2015, 1 07/13/2013, [...] this encounter Medical Devices Implanted Type Area Foiling Machine Adjuster Device Identifier Shelf Expiration Date Model / Serial / Lot Envista Hydrophobic Acrylic Intraocular Lens Implanted:Qty: 1 on 06/17/2022 by Ceasar Valentine MD at OR [facility] Left: Eye [employer] 05/28/2024 [id number] / [id number] / [id number] Envista Toric Intraocular Lens Implanted:Qty: 1 on 07/01/2022 by Ceasar Valentine MD at OR [facility] Right: Eye [employer] 03/28/2023 [id number] 25 / [id number] / [id number] Align Radial Head And Lock Screw, 22mm Implanted:Qty: 1 on 01/07/2023 by Bhupinder Ritter MD [place] [facility] [place]: Elbow [employer] 04/22/2027 ALN-RHI-22 0 / / [id number] documented as of this encounter Visit Diagnoses [...] the patient have Health Care Power of Chlorination Operator? No No Code 06/17/2022 11:34 AM 06/17/2022 5:37 PM Th is order reflects the patients wishes and were consensually agreed upon. Question Answer Comments Discussion of Advance Directives occurred with: Patient Does the patient have a Living Will? No Does the patient have Health Care Power of Chlorination Operator? No Full Code 02/03/2013 1:43 AM 02/15/2013 4:51 PM This o rder reflects the patients wishes and were consensually agreed upon. Care Teams University Internship Relationship Specialty Start Date End Date Yaniv Plasencia DO [address] [place] [address] PCP - General Family Medicine 07/01/16 documented as of this encounter
--- OUTSIDE RECORDS SUMMARY | 2023-07-12 11:43 | External Medical Summary | Summary of Care ---
Author Name Unknown Organization [facility] Address [address] [place] [address] Phone [phone] Care Team Providers Care Merchandise Worker Name Role Phone Yaniv Plasencia DO Primary Care Provider [phone] Reason for Referral * Evaluate & Treat - Unlimited Visits (Within 10 days (routine)) - Pending Review Specialty Diagnoses / Procedures Referred By Yinka phillips Referred To Contact Occupational Medicine / Occupational Therapy Diagnoses Closed fracture of olecranon process of left ulna with routine healing, subsequent encounter Closed displaced fracture of head of left radius with routine healing, subsequent encounter Tawana Mendez PA-C [address] [place] [id number] Referral ID Status Reason Start Date Expiration Date Visits Requested Visits Authorized [id number] Pending Review Specialty Services Required 01/21/[phone] Question Answer Referral Priority Within [...] of motion, avoiding passive stretching until 4-6 weeks post-op. Patient is to avoid strengthening until approximately 6-8 weeks post-op. Reason for Visit * Reason Comments Post-Op Left elbow Encounter Details Date Type Department Care Team Description 01/21/2023 Office Visit Orthopaedics, [facility] [address] [place] [address] Tawana Mendez PA-C [address] [place] [address] Closed fracture of olecranon process of left [...] mRNA, LNP-s, No Pre serve, 2-Dose Series (ComV[employer]) 08/11/2020,07/21/2020 H1N1 2009 Influenza, IM 08/14/2009 Hepatitis B, 20+ yrs 11/16/2013,07/20/2013,05/18 Pneumococcal Conjugate Vacci ne, 20-valent ([id number]) 06/06/2022 Pneumococcal Polysaccharide PPV23 (Pneumovax) 09/28/1999 Seasonal [...] as of this encounter Progress Notes * Tawana Mendez PA-C - 01/21/2023 12:39 PM EDT Name : Susannah Vasquez Date : 01/21/2023 Diagnosis: Left Elbow Olecranon Fracture with Displaced Left Radial Head Neck Fracture Procedure: Open Reduction Internal Fixation Left Elbow Olecranon Fracture with Left Elbow Radial Head Replacement Date of initiation of symptoms / Date of Procedure: 01/07/23 Duration of symptoms / since Procedure: 2 week(s) Severity: Pain Scale - none Brief History of events since last encounter: Patient has been progressing well post-operatively. Describes pain as expected. Hesitant to move elbow. Patient denies numbness, tingling, fever, chills, and other complaints or concerns. EMG: none PRO: quickDASH: deferred Physical Exam: HAND / WRIST / ELBOW EXAM: There were no vitals filed for this visit. There is no height or weight on file to calculate BMI. General: Patient is pleasant and cooperative, oriented to time place and person. Appears stated ageand in no acute distress. No peripheral edema or swelling. Skin intact. Elbow: well healed incision with sutures removed and steri-strips applied, no erythema, warmth, bleeding or drainage. Appropriate incisional tenderness to palpation. Minimal diffuse swelling. Demonstrates gentle active elbow range of motion. Neurovascularly intact distally. Radiology: No new films. Pathology: none Injection: None. Assessment : Susannah Vasquez is a 62 year old year-old ukfkv-yffj-irstjvch female with Left Elbow Olecranon Fracture with Displaced Left Radial Head Neck Fracture status post Open Reduction Internal Fixation Left Elbow Olecranon Fracture with Left Elbow Radial Head Replacement on 01/07/23, 2 week(s). Plan: Complete discussion of diagnosis, prognosis, and treatment options including risks and benefits has again taken place on this encounter. Patient has progressed well post-operatively. They are counseled on routine incisional care. She is fit with elbow ROM brace locked from 90 degrees of flexion to full extension. May work ongentle active ROM as provided by OT today. Edema glove provided for hand. Plan will be for patient to follow up in 3-4 weeks for re-check, advancement, and x-rays. Patient has demonstrated understanding, with all current questions answered, and is satisfied with the plan of care. Patient has been instructed to contact the office with any questions or concerns that may arise. This patient was discussed with Dr. Steven Ritter MD. in clinic on 01/21/2023. Tawana Mendez PA-C [facility] [address] [address] Orthopaedics, [facility] [address] [place] [address] documented in this encounter Plan of Treatment Upcoming Encounters Date Type Specialty Care Team Description 02/23/2023 Office Visit Orthopedics Bhupinder Ritter MD [address] [place] [address] 08/04/2023 Office Visit Family Medicine Yaniv Plasencia, DO [address] [place] [address] 12/15/2023 Office Visit Sleep Disorders Kimmie Billingsleyaret, DO [address] [place] [address] Pending Results Name Type Priority Associated Diagnoses Date /Time XR ELBOW 3 OR MORE VIEWS Medical Imaging Routine Closed fracture of olecranon process of left ulna with routine healing, subsequent encounter 01/21/2023 10:52 AM EDT Scheduled Referrals Name Type Priority [...] Additional history exists CKD HGB USE SMARTSET 55406 12/11/202312/10, 12/20/2021, 06/05/2020, Additional history exists CKD PHOS USE SMARTSET 57360 12/11/202311/27, 12/20/2021, 06/05/2020, Additional history exists TSH [...] this encounter Medical Devices Implanted Type Area Street Openings Inspector Device Identifier Shelf Expiration Date Model / Serial / Lot Envista Hydrophobic Acrylic Intraocular Lens Implanted:Qty: 1 on 06/17/2022 by Ceasar Valentine MD at OR [facility] Left: Eye [employer] 05/28/2024 [id number] / [id number] / [id number] Envista Toric Intraocular Lens Implanted:Qty: 1 on 07/01/2022 by Ceasar Valentine MD at OR [facility] Right: Eye [employer] 03/28/2023 [id number] / [id number] Align Radial Head And Lock Screw, 22mm Implanted:Qty: 1 on 01/07/2023 by Bhupinder Ritter MD at OR [facility] Left: Elbow [employer] 04/22/2027 [id number]-RHI-22 0 / / [id number] documented as of this encounter Visit Diagnoses [...] the patient have Health Care Power of Supervisor Mechanic Boilermaking? No No Code 06/17/2022 11:34 AM 06/17/2022 5:37 PM Th is order reflects the patients wishes and were consensually agreed upon. Question Answer Comments Discussion of Advance Directives occurred with: Patient Does the patient have a Living Will? No Does the patient have Health Care Power of Supervisor Mechanic Boilermaking? No Full Code 02/03/2013 1:43 AM 02/15/2013 4:51 PM This o rder reflects the patients wishes and were consensually agreed upon. Care Teams Merchandise Worker Relationship Specialty Start Date End Date Yaniv Plasencia, [address] [place] [address] PCP - General Family Medicine 07/01/16 documented as of this encounter
--- OUTSIDE RECORDS SUMMARY | 2023-07-12 11:43 | External Medical Summary | Summary of Care ---
Author Name Unknown Organization [facility] Address [address] [place] [address] Phone [phone] Care Team Providers Care Agency Legal Counsel Name Role Phone Dunia Espana DO Primary Care Provider [phone] Reason for Visit * Reason Comments eRx-Medication Refill Encounter Details Date Type Department Care Team (Late st Contact Info) Description 04/20/2023 [facility] [place] [address] [place], [place] [address] Dunia Espana DO [address] [facility] [place], [place] [address] Moderate episode of recurrent major depressive disorder (HCC) Allergies No known active allergiesdocumented as of this encounter (statuses as of 04/21/2023) Medications Medication Sig Dispensed Refills Start Date [...] Active Amitriptyline HCl 25 MG Oral Tablet (Elavil)Indicati ons:Primary insomnia take 1 tablet by mouth at bedtime 90 Tablet 3 12/22/2022 Active Montelukast Sodium 10 MG Oral Tablet (Singulair)Indic ations:Chronic rhinitis Take 1 Tablet by mouth in the morning. 90 Tablet 3 03/05/2023 Active Lisinopril 20 MG Oral Tablet (Prinivil)Indica tions:Kidney disease, chronic, stage III (GFR 30-59 ml/min) ([facility]),Type 2 diabetes mellitus with hemoglobin A1c goal of less than 7.0% (HCC) TAKE 1 TABLET DAILY WITH 10MG TABLET FOR TOTAL DOSE OF 30MG A DAY 90 Tablet 3 03/05/2023 Active Lisinopril 10 MG Oral Tablet (Prinivil)Indica tions:Kidney disease, chronic, stage III (GFR 30-59 ml/min) ([facility]),Type 2 diabetes mellitus with hemoglobin A1c goal of less than 7.0% ([facility]) TAKE 1 TABLET DAILY WITH 20MG DOSE FOR A TOTAL DOSE OF 30MG A DAY 90 Tablet 3 03/05/2023 Active methylPREDNISolo ne 4 MG Oral Tablet Therapy Pack (Medrol Dosepack)Indicat ions:Closed fracture of olecranon process of left ulna with routine healing, subsequent encounter,Closed displaced fracture of head of left radius with routine healing, subsequent encounter follow package directions 21 Tablet 0 04/20/2023 Active Escitalopram Oxalate 20 MG Oral Tablet (Lexapro)Indicat ions:Moderate episode of recurrent major depressive disorder (HCC) take 1 tablet by mouth once daily 90 Tablet 2 04/21/2023 Active buPROPion HCl ER (SR) 150 MG Oral Tablet Extended Release 12 Hour (Wellbutrin SR) take 1 tablet by mouth twice a day 180 Tablet 2 04/21/2023 Active Escitalopram Oxalate 20 MG Oral Tablet (Lexapro)Indicat ions:Moderate episode of recurrent major depressive disorder (HCC) take 1 tablet by mouth once daily 90 Tablet 2 07/25/2022 3 Discontinued buPROPion HCl ER (SR) 150 MG Oral Tablet Extended Release 12 Hour (Wellbutrin SR) take 1 tablet by mouth twice a day 180 Tablet 2 07/25/2022 3 Discontinued documented as of this encounter (statuses as of 04/21/2023) Active Problems Problem Noted Date Diagnosed Date [...] as of this encounter (statuses as of 04/21/2023) Resolved Problems Problem Noted Date Diagnosed Date [...] as of this encounter (statuses as of 04/21/2023) Immunizations Name Administration Dates Next Due COVID-19 mRNA, LNP-s, No Pre serve, 2-Dose Series (Pfizer) 08/11/2020,07/21/2020 H1N1 2009 Influenza, IM 08/14/2009 Hepatitis B, 20+ yrs 11/16/2013,07/20/2013,05/18 Pneumococcal Conjugate Vacci ne, 20-valent ([id number]) 06/06/2022 Pneumococcal Polysaccharide PPV23 (Pneumovax) 09/28/1999 Seasonal [...] encounter Miscellaneous Notes * Telephone Encounter - Terrie Chandra RPh - 04/21/2023 8:57 AM EDTSigned Prescriptions: Disp Refills Escitalopram Oxalate 20 MG Oral Tablet (Le*90 Tab*2 Sig: take 1tablet by mouth once dailyAuthorizing Provider: DUNIA ESPANA User: TERRIE CHANDRA buPROPion HCl ER (SR) 150 MG Oral Tablet E*180 Ta*2 Sig: take 1 tablet by mouth twice a dayAuthorizing Provider: DUNIA ESPANA User: TERRIE CHANDRA documented in this encounter Plan of Treatment Upcoming Encounters Date Type Department Care Team (Late st Contact Info) Description 06/01/2023 10:30 AM EST Office Visit Orthopaedics, [facility] [address] [place] [address] Bhuipnder Ritter MD [address] [place] [address] 08/04/2023 2:40 PM EST Office Visit Family Practice [facility] [address] [place] [address] Dunia Espana DO [address] [facility] [place] [address] 04/07/2024 3:00 PM EDT Office Visit Sleep Disorders [facility]tr [facility] [place] [address] [facility] [place] [phone] Kimmie Billingsley, [address] [facility] [place] [address] Health Maintenance Due Date Last Done Comments [...] Additional history exists CKD HGB USE SMARTSET 17420 12/11/202312/10, 12/20/2021, 06/05/2020, Additional history exists CKD PHOS USE SMARTSET 93622 12/11/202311/27, 12/20/2021, 06/05/2020, Additional history exists TSH [...] this encounter Medical Devices Implanted Type Area Svp Digital Sales Device Identifier Shelf Expiration Date Model / Serial / Lot Envista Hydrophobic Acrylic Intraocular Lens Implanted:Qty: 1 on 06/17/2022 by Ceasar Valentine MD at OR [facility] Left: Eye [employer] 05/28/2024 [id number] / [id number] / [id number] [employer]ista Toric Intraocular Lens Implanted:Qty: 1 on 07/01/2022 by Ceasar Valentine MD at OR [facility] Right: Eye [employer] 03/28/2023 [id number] / [id number] Align Radial Head And Lock Screw, 22mm Implanted:Qty: 1 on 01/07/2023 by Bhupinder Ritter [place] [facility] Left: Elbow [employer] [facility] 04/22/2027 ALN-RHI-22 0 / / [id number] documented as of this encounter Visit Diagnoses Diagnosis Moderate episode of recurrent major depressive disorder (HCC) documented in this encounter Advance Directives Latest [...] the patient have Health Care Power of Oncology Admin? No No Code 06/17/2022 11:34 AM 06/17/2022 5:37 PM Th is order reflects the patients wishes and were consensually agreed upon. Question Answer Comments Discussion of Advance Directives occurred with: Patient Does the patient have a Living Will? No Does the patient have Health Care Power of Oncology Admin? No Full Code 02/03/2013 1:43 AM 02/15/2013 4:51 PM This o rder reflects the patients wishes and were consensually agreed upon. Care Teams Agency Legal Counsel Relationship Specialty Start Date End Date Dunia Espana DO [facility] [address] [place] [address] PCP - General Family Medicine 07/01/16 documented as of this encounter
--- OUTSIDE RECORDS SUMMARY | 2023-07-12 11:43 | External Medical Summary | Summary of Care ---
Author Name Unknown Organization [facility] Address [address] [place] [address] Phone [phone] Care Team Providers Care Proposal Rep Name Role Phone Yaniv Plasencia DO Primary Care Provider [phone] Reason for Visit * Reason Comments Follow Up Here follow VASU. CPA P. Encounter Details Date Type Department Care Team Description 04/07/2023 Office Visit Sleep Disorders Ctr [facility] [address] [facility] [address] Kimmie [facility]ings[facility] [address] [facility] [address] Obstructive sleep apnea*; Nocturnal hypoxemia Allergies No known active allergiesdocumented as of this encounter (statuses as of 04/07/2023) Medications Medication Sig Dispensed Refills Start Date [...] Pain, Severe. 10 Tablet 0 01/07/2023 Active Montelukast Sodium 10 MG Oral Tablet (Singulair)Indicat ions:Chronic rhinitis Take 1 Tablet by mouth in the morning. 90 Tablet 3 03/05/2023 Active Lisinopril 20 MG Oral Tablet (Prinivil)Indicati ons:Kidney disease, chronic, stage III (GFR 30-59 ml/min) ([facility]),Type 2 diabetes mellitus with hemoglobin A1c goal of less than 7.0% ([facility]) TAKE 1 TABLET DAILY WITH 10MG TABLET FOR TOTAL DOSE OF 30MG A DAY 90 Tablet 3 03/05/2023 Active Lisinopril 10 MG Oral Tablet (Prinivil)Indicati ons:Kidney disease, chronic, stage III (GFR 30-59 ml/min) ([facility]),Type 2 diabetes mellitus with hemoglobin A1c goal of less than 7.0% ([facility]) TAKE 1 TABLET DAILY WITH 20MG DOSE FOR A TOTAL DOSE OF 30MG A DAY 90 Tablet 3 03/05/2023 Active documented as of this encounter (statuses as of 04/07/2023) Active Problems Problem Noted Date Closed fracture [...] as of this encounter (statuses as of 04/07/2023) Resolved Problems Problem Noted Date Resolved Date [...] as of this encounter (statuses as of 04/07/2023) Immunizations Name Administration Dates Next Due COVID-19 mRNA, LNP-s, No Pre serve, 2-Dose Series (Pfizer) 08/11/2020,07/21/2020 H1N1 2009 Influenza, IM 08/14/2009 Hepatitis B, 20+ yrs 11/16/2013,07/20/2013,05/18 Pneumococcal Conjugate Vacci ne, 20-valent ([id number]) 06/06/2022 Pneumococcal Polysaccharide PPV23 (Pneumovax) 09/28/1999 Seasonal [...] on file documented as of this encounter Last Filed Vital Signs Vital Sign Reading Time Taken Comments Blood Pressure 128/78 04/07/2023 3:45 PM EDT Pulse 106 04/07/2023 3:45 PM EDT Temperature 36.9 C (98.5 F) 04/07/2023 3:45 PM ED T Respiratory Rate 16 04/07/2023 3:45 PM EDT Oxygen Saturation 98% 04/07/2023 3:45 PM EDT Inhaled Oxygen Concentration - - Weight 122.5 kg (270 lb) 04/07/2023 3:45 PM EDT Height 162.6 cm (5' 4") 04/07/2023 3:45 PM EDT Body Mass Index 46.35 04/07/2023 3:45 PM EDT documented in this encounter Progress Notes * Kimmie Juniorarealan Billingsley, DO - 04/07/2023 3:48 PM EDT Sleep Medicine Follow-Up HISTORY: Susannah Vasquez is a 63 year old female for follow up of moderate VASU. Initially seen 04/23/21 with snoring, witnessed apneas, coughing awakenings. [place] 5. Hx HTN, depression, DLD, hypothyroidism. HST 05/21/21: SHY 29, SpO2 rosario 76%, time <89% 127.9 min. Last Sleep Med appt was 12/10/22. Doing pretty well with CPAP 10-20 cwp. [place] 5. Residual AHI 1.4. Ordered nocturnal oximetry on CPAP & RA. Using CPAP 10-20 cmH2O. She fell and broke her arm earlier this year. Had surgery, now in rehab. Sleeping on the couch since then. Will try to move back to bed soon. Using CPAP regularly again. She can use her left arm a little bit, is able to get the mask and headgear on okay now. Not sleeping great, still has pain interrupting sleep. Recently went on Medicare, and needed an updated appt to continue getting CPAP supplies. She was called for nocturnal oximetry just after breaking her arm, so postponed testing until she is back to sleeping regularly. Thus, this test has not yet been completed. Subjective PAP adherence: good Sleep refreshing on PAP: yes Snoring on PAP: no Daytime sleepiness: no Daytime napping: yes Drowsy driving: not driving currently. Interface: FFM Mask leak: yes, it leaks more around the bottom (below the mouth), and sometimes around her eyes. It would get a more consistent seal when she was sleeping in bed; it seems to get displaced more frequently when sleeping on the couch. Aerophagia: no Morning headaches: no Recent weight change: lost a little bit (intentional) [place] Sleepiness Scale: 4 Flu Vaccine Questionnaire Question 03/31/2023 6:09 PM EDT - Filed by Patient Get your flu shot at your upcoming appointment. Please select one of the options below. I already received my flu shot [place] Sleepiness Scale Question 04/07/2023 3:45 PM EDT - Filed by Adela Solis LPN What is the chance you will doze off in the following situation? Sitting and reading Slight chance of dozing Watching TV No chance of dozing Sitting inactive in a public place, such as a theater or meeting No chance of dozing As a passenger in a car for an hour without a break No chance of dozing Lying down to rest in the afternoon when circumstances permit High chance of dozing When sitting and talking to someone No chance of dozing When sitting quietly after lunch without alcohol No chance of dozing In a car, while stopped for a few minutes in traffic No chance of dozing Score (range: 0 - 24) 4 CPAP Compliance: Report date: 03/31/23 % total days used: 97% % days used > 4 hours: 97% Average hours per day used: 7h 32m Large leak: sometimes (95%ile 51.8 L/min) AHI: 5.7 /hr Median pressure: 12.1 cmH2O 95%ile pressure: 14.2 cmH2O Pressure settin-20 cmH2O Equipment: DME Provider is [employer] Uses a AirSense 11. Patient Active Problem List Diagnosis Code Depression, major, in remission ([facility]) F32.5 Migraine without aura, intractable G43.019 No advance directive on file Z78.9 Acquired hypothyroidism E03.9 DYSLIPIDEMIA, GOAL LDL BELOW 100 E78.5 Allergic rhinitis J30.9 Body mass index (BMI) of 45.0 to 49.9 in adult ([facility]) Z68.42 Primary insomnia F51.01 Stage 3a chronic kidney disease N18.31 Closed fracture of left olecranon process S52.022A Left radial head fracture S52.122A Outpatient Medications Marked as Taking for the 04/07/23 encounter (Office Visit) with Kimmie Billingsley, DO Medication Sig Lisinopril 10 MG Oral Tablet (Prinivil) TAKE 1 TABLET DAILY WITH 20MG DOSE FOR A TOTAL DOSE OF 30MGA DAY Lisinopril 20 MG Oral Tablet (Prinivil) TAKE 1 TABLET DAILY WITH 10MG TABLET FOR TOTAL DOSE OF 30MGA DAY Montelukast Sodium 10 MG Oral Tablet (Singulair) Take 1 Tablet by mouth in the morning. HYDROcodone-Acetaminophen 5-325 MG Oral Tablet Take 1 Tablet by mouth every 6 hours as needed for Pain, Severe. oxyCODONE HCl 5 MG Oral Tablet (Oxy IR) Take 1 Tablet by mouth every 8 hours as needed for Pain, Severe. Amitriptyline HCl 25 MG Oral Tablet (Elavil) take 1 tablet by mouth at bedtime Levothyroxine Sodium 112 MCG Oral Tablet (Levoxyl) Take 1 Tablet by mouth in the morning. (at least30 min prior to breakfast or other meds). buPROPion HCl ER (SR) 150 MG Oral Tablet Extended Release 12 Hour (Wellbutrin SR) take 1 tablet by mouth twice a day Escitalopram Oxalate 20 MG Oral Tablet (Lexapro) take 1 tablet by mouth once daily Docusate Sodium 100 MG Oral Capsule Take 1 Capsule by mouth every evening. Multi-Day Vitamins Oral Tablet Take 1 Tablet by mouth daily at noon. CPAP every night at bedtime . cetirizine (ZYRTEC) 10 MG Tablet Take 1 Tab by mouth daily. (Patient taking differently: Take 1 Tablet by mouth daily at noon.) PHYSICAL EXAM: Filed Vitals: 04/07/23 1545 BP: 128/78 Pulse: 106 Resp: 16 Temp: 36.9 C (98.5 F) TempSrc: Tympanic SpO2: 98% Weight: 122.5 kg (270 lb) Height: 1.626 m (5' 4") General: alert, no acute distress Head: NC/AT Lungs: normal respiratory effort Neuro: speech clear and appropriate ASSESSMENT/PLAN: Obstructive sleep apnea - excellent adherence; encourage continued use of CPAP with all sleep - good efficacy of therapy; continue PAP at current setting 10-20 cmH2O - note that residual AHI is mildly elevated (5.7) in the setting of increased leak, which is attributed to current sleep position while recovering from arm surgery. She anticipates moving back to sleeping in bed, and we expect that leak will improve with return to her typical sleep position. - DME: [employer] - Routine cleaning and change of supplies as needed. - Weight loss can result in improvement in the patient's nocturnal respiratory events. - Continue to avoid driving when feeling sleepy/drowsy. Nocturnal hypoxemia - reassess with overnight oximetry on CPAP and RA, once better recovered from her arm surgery and back in her typical sleep location. Follow-up with Sleep Medicine in 1 year. Kimmie Billingsley DO documented in this encounter Nursing Notes * Adela Solis LPN - 04/07/2023 3:47 PM EDT Chief Complaint Patient presents with Follow Up Here follow VASU. CPAP. DME: [employer] Flu Vaccine Questionnaire Question 03/31/2023 6:09 PM EDT - Filed by Patient Get your flu shot at your upcoming appointment. Please select one of the options below. I already received my flu shot [place] Sleepiness Scale Question 04/07/2023 3:45 PM EDT - Filed by Adela Solis LPN What is the chance you will doze off in the following situation? Sitting and reading Slight chance of dozing Watching TV No chance of dozing Sitting inactive in a public place, such as a theater or meeting No chance of dozing As a passenger in a car for an hour without a break No chance of dozing Lying down to rest in the afternoon when circumstances permit High chance of dozing When sitting and talking to someone No chance of dozing When sitting quietly after lunch without alcohol No chance of dozing In a car, while stopped for a few minutes in traffic No chance of dozing Score (range: 0 - 24) 4 documented in this encounter Plan of Treatment Upcoming Encounters Date Type Specialty Care Team Description 04/20/2023 Office Visit Orthopedics Bhupinder Ritter MD [address] [facility] [place] [address] 08/04/2023 Office Visit Family Medicine Yaniv Plasencia DO [address] [place] [address] 04/07/2024 Office Visit Sleep Disorders Kimmie Billingsley DO [address] [place] [address] Scheduled Orders Name Type Priority Associated Diagnoses Orde r Schedule NOCTURNAL HOME OXIMETRY (OP) Procedures Routine Obstructive sleep apnea Nocturnal hypoxemia Ordered: 04/07/2023 Health Maintenance Due Date Last Done Comments [...] Additional history exists CKD HGB USE SMARTSET 82902 12/11/202312/10, 12/20/2021, 06/05/2020, Additional history exists CKD PHOS USE SMARTSET 46224 12/11/202311/27, 12/20/2021, 06/05/2020, Additional history exists TSH [...] this encounter Medical Devices Implanted Type Area Lumber Chain Offbearer Device Identifier Shelf Expiration Date Model / Serial / Lot Envista Hydrophobic Acrylic Intraocular Lens Implanted:Qty: 1 on 06/17/2022 by Ceasar Valentine MD at OR [facility] Left: Eye [employer]OM[employer] 05/28/2024 [id number] / [id number] / [id number] Envista Toric Intraocular Lens Implanted:Qty: 1 on 07/01/2022 by Ceasar Valentine MD at OR [facility] Right: Eye [employer]OM[employer] 03/28/2023 [id number] / [id number] / [id number] Align Radial Head And Lock Screw, 22mm Implanted:Qty: 1 on 01/07/2023 by Bhupinder Ritter MD at OR [facility] Left: Elbow [employer] 04/22/2027 [id number] / / [id number] documented as of this encounter Visit Diagnoses Diagnosis Obstructive sleep apnea- Primary Obstructive sleep apnea (adult) (pediatric) Nocturnal hypoxemia Hypoxemia documented in this encounter Advance Directives Latest [...] the patient have Health Care Power of [place] And Washer? No No Code 06/17/2022 11:34 AM 06/17/2022 5:37 PM Th is order reflects the patients wishes and were consensually agreed upon. Question Answer Comments Discussion of Advance Directives occurred with: Patient Does the patient have a Living Will? No Does the patient have Health Care Power of [place] And Washer? No Full Code 02/03/2013 1:43 AM 02/15/2013 4:51 PM This o rder reflects the patients wishes and were consensually agreed upon. Care Teams Proposal Rep Relationship Specialty Start Date End Date Yaniv Plasencia, DO [address] [place] [address] PCP - General Family Medicine 07/01/16 documented as of this encounter
--- OUTSIDE RECORDS SUMMARY | 2023-07-12 11:43 | External Medical Summary | Summary of Care ---
Author Name Unknown Organization [facility] Address [address] [place] [address] Phone [phone] Care Team Providers Care Conservation Science Officer Name Role Phone Yaniv Plasencia DO Primary Care Provider [phone] Reason for Visit * Reason Comments Follow Up Left elbow Encounter Details Date Type Department Care Team (Late st Contact Info) Description 04/20/2023 10:30 AM EDT Office Visit Orthopaedics, [facility] [address] [place] [address] Bhupinder Ritter MD [address] [place] [address] Closed displaced fracture of head of [...] disease, chronic, stage III (GFR 30-59 ml/min) ([facility]),Type 2 diabetes mellitus with hemoglobin A1c goal of less than 7.0% ([facility]) TAKE 1 TABLET DAILY WITH 10MG TABLET FOR TOTAL DOSE OF 30MG A DAY 90 Tablet 3 03/05/2023 Active Lisinopril 10 MG Oral Tablet (Prinivil)Indica tions:Kidney disease, chronic, stage III (GFR 30-59 ml/min) ([facility]),Type 2 diabetes mellitus with hemoglobin A1c goal [...] package directions 21 Tablet 0 04/20/2023 Active oxyCODONE HCl 5 MG Oral Tablet (Oxy IR)Indications:C losed fracture of olecranon process of left ulna, initial encounter Take 1 Tablet by mouth every 8 hours as needed for Pain, Severe. 15 Tablet 0 12/31/2022 3 Discontinue d(Medicatio n/Dose Changed) HYDROcodone-Acet aminophen 5-325 MG Oral Tablet Take 1 Tablet by mouth every 6 hours as needed for Pain, Severe. 10 Tablet 0 01/07/2023 3 Discontinue d(Medicatio n/Dose Changed) documented as of this encounter (statuses as [...] mRNA, LNP-s, No Pre serve, 2-Dose Series ([employer]) 08/11/2020,07/21/2020 H1N1 2008 Influenza, IM 08/14/2009 Hepatitis B, 20+ yrs 11/16/2013,07/20/2013,05/18 Pneumococcal Conjugate Vacci ne, 20-valent ([id number]) 06/06/2022 Pneumococcal Polysaccharide PPV23 (Pneumovax) 09/28/1999 Seasonal [...] Progress Notes * Cami Sam ATC - 04/20/2023 10:31 AM EDT I,Asya Sam ATC, am scribing for, and in the presence of, Dr Bhupinder Ritter MD. Name : Susannah Vasquez Date : 04/20/2023 Diagnosis: Left Elbow Olecranon Fracture with Displaced Left Radial Head Neck Fracture Procedure: Open Reduction Internal Fixation Left Elbow Olecranon Fracture with Left Elbow Radial Head Replacement Date of initiation of symptoms / Date of Procedure: 01/07/23 Duration of symptoms / since Procedure: 3 months Severity: Pain Scale - 3/10 Brief History of events since last encounter: Patient has been progressing post-operatively. Describes pain well controlled. No significant discomfort except for when working on motion. She describes continued stiffness of fingers but feels her motion and function is improving. She notes she was able to touch her nose for first time. She is performing formal therapy once per week closer to home. Patient denies numbness, tingling, fever, chills, and [...] or drainage. No tenderness to palpation.Finger stiffness with very limited IP motion. Satisfactory wrist motion. Approx 50 degrees arc elbow motion (-40 to 90 degrees). No pain with forearm rotation. Neurovascularly intact distally. Radiology: obtained and reviewed today with hardware in place and maintained improved alignment Injection: None. Assessment : Susannah Vasqeuz is a 62 year old year-old tireo-euzz-joonurhl female with Left Elbow Olecranon Fracture with Displaced Left Radial Head Neck Fracture status post Open Reduction Internal Fixation Left Elbow Olecranon Fracture with Left Elbow Radial Head Replacement on 01/07/23, 3 month Plan: Complete discussion of diagnosis, prognosis, and treatment options including risks and benefits hasagain taken place on this encounter. To see CHT today for motion progression. Recommend aggressive finger motion. Medrol dose pack prescribed. Plan will be for patient to follow up in 6 weeks. Patient has demonstrated understanding, with all current questions answered, and is satisfied with the plan of care. Patient has been instructed to contact the office with any questions or concerns that may arise. Steven Ritter MD [facility] Orthopaedics [facility] [address] [facility] [address] [place] [address] [place] [address] I, Dr. Ritter, was physically present and personally performed the services described in this documentation as scribed for me by Cami Sam ATC in my presence. I attest that this note is both accurate and complete. Bhupinder Ritter MD [facility] Hand & Upper Extremity Surgeon [facility] documented in this encounter Plan of Treatment Upcoming Encounters Date Type Department Care Team (Late st Contact Info) Description 06/01/2023 10:30 AM EST [place] [address] [place] [address] Bhupinder Ritter MD [address] [place] [address] 08/04/2023 2:40 PM EST Office Visit [facility] [place] [address] [facility] [place] [address] Yaniv Plasencia, DO [address] [facility] [place] [address] 04/07/2024 3:00 PM EDT Office Visit Sleep Disorders Ctr [facility] [address] [address] Kimmie Billingsley, [address] [place] [address] Pending Results Name Type Priority Associated Diagnoses Date /Time XR ELBOW 3 OR MORE VIEWS Medical Imaging Routine Closed fracture of olecranon process of left ulna with routine healing, subsequent encounter Closed displaced fracture of head of left radius with routine healing, subsequent encounter 04/20/2023 10:05 AM EDT Health Maintenance Due Date Last Done Comments [...] Additional history exists CKD HGB USE SMARTSET 10122 12/11/202312/10, 12/20/2021, 06/05/2020, Additional history exists CKD PHOS USE SMARTSET 63620 12/11/202311/27, 12/20/2021, 06/05/2020, Additional history exists TSH [...] this encounter Medical Devices Implanted Type Area Pedicab Driver Device Identifier Shelf Expiration Date Model / Serial / Lot Envista Hydrophobic Acrylic Intraocular Lens Implanted:Qty: 1 on 06/17/2022 by Ceasar Valentine MD at OR [facility] Left: Eye [employer] 05/28/2024 [id number] / [id number] / [id number] Envista Toric Intraocular Lens Implanted:Qty: 1 on 07/01/2022 by Ceasar Valentine MD at OR [facility] Right: Eye [employer] 03/28/2023 [id number] / [id number] Align Radial Head And Lock Screw, 22mm Implanted:Qty: 1 on 01/07/2023 by Bhupinder Ritter MD at OR [facility] Left: Elbow [employer] [facility] 04/22/2027 ALN-RHI-22 0 / / [id number] documented as of this encounter Visit Diagnoses [...] the patient have Health Care Power of Clinical Documentation Spec? No No Code 06/17/2022 11:34 AM 06/17/2022 5:37 PM Th is order reflects the patients wishes and were consensually agreed upon. Question Answer Comments Discussion of Advance Directives occurred with: Patient Does the patient have a Living Will? No Does the patient have Health Care Power of Clinical Documentation Spec? No Full Code 02/03/2013 1:43 AM 02/15/2013 4:51 PM This o rder reflects the patients wishes and were consensually agreed upon. Care Teams Conservation Science Officer Relationship Specialty Start Date End Date Yaniv Plasencia DO [address] [place] [address] PCP - General Family Medicine 07/01/16 documented as of this encounter
--- OUTSIDE RECORDS SUMMARY | 2023-07-12 11:43 | External Medical Summary | Summary of Care ---
Author Name Unknown Organization [facility] Address [address] [place] [address] Phone [phone] Care Team Providers Care Fiberglass Autobody Repairer Name Role Phone Dunia Espana DO Primary Care Provider [phone] Reason for Visit * Reason Onset Date Comments Medication Refill 03/04/2023 Encounter Details Date Type Department Care Team Description 03/04/2023 Refill Family Practice [facility] [place] [address] [facility] [place] [address] Dunia Espana DO 200 [facility] [place], [place] [address] Chronic rhinitis; Kidney disease, chronic, stage III (GFR 30-59 ml/min) ([facility]); Type 2 diabetes mellitus with hemoglobin A1c goal of less than 7.0% ([facility]) Allergies No known active allergiesdocumented as of this encounter (statuses as of 03/05/2023) Medications Medication Sig Dispensed Refills Start Date [...] Pain, Severe. 15 Tablet 0 12/31/2022 Active HYDROcodone-Acet aminophen 5-325 MG Oral Tablet Take 1 Tablet by mouth every 6 hours as needed for Pain, Severe. 10 Tablet 0 01/07/2023 Active Montelukast Sodium 10 MG Oral Tablet (Singulair)Indic ations:Chronic rhinitis Take 1 Tablet by mouth in the morning. 90 Tablet 3 03/05/2023 Active Lisinopril 20 MG Oral Tablet (Prinivil)Indica tions:Kidney disease, chronic, stage III (GFR 30-59 ml/min) ([facility]),Type 2 diabetes mellitus with hemoglobin A1c goal of less than 7.0% ([facility]) TAKE 1 TABLET DAILY WITH 10MG TABLET FOR TOTAL DOSE OF 30MG A DAY 90 Tablet 3 03/05/2023 Active Lisinopril 10 MG Oral Tablet (Prinivil)Indica tions:Kidney disease, chronic, stage III (GFR 30-59 ml/min) ([facility]),Type 2 diabetes mellitus with hemoglobin A1c goal of less than 7.0% ([facility]) TAKE 1 TABLET DAILY WITH 20MG DOSE FOR A TOTAL DOSE OF 30MG A DAY 90 Tablet 3 03/05/2023 Active Lisinopril 10 MG Oral Tablet (Prinivil)Indica tions:Kidney disease, chronic, stage III (GFR 30-59 ml/min) ([facility]),Type 2 diabetes mellitus with hemoglobin A1c goal of less than 7.0% ([facility]CC) TAKE 1 TABLET DAILY WITH 20MG DOSE FOR A TOTAL DOSE OF 30MG A DAY 90 Tablet 1 09/10/2022 3 Discontinue d(Refill) Montelukast Sodium 10 MG Oral Tablet (Singulair)Indic ations:Chronic rhinitis TAKE 1 TABLET DAILY 90 Tablet 1 09/10/2022 3 Discontinue d(Refill) Lisinopril 20 MG Oral Tablet (Prinivil)Indica tions:Kidney disease, chronic, stage III (GFR 30-59 ml/min) (HCC),Type 2 diabetes mellitus with hemoglobin A1c goal of less than 7.0% (HCC) TAKE 1 TABLET DAILY WITH 10MG TABLET FOR TOTAL DOSE OF 30MG A DAY 90 Tablet 1 09/10/2022 3 Discontinue d(Refill) documented as of this encounter (statuses as of 03/05/2023) Active Problems Problem Noted Date Closed fracture [...] as of this encounter (statuses as of 03/05/2023) Resolved Problems Problem Noted Date Resolved Date [...] as of this encounter (statuses as of 03/05/2023) Immunizations Name Administration Dates Next Due COVID-19 mRNA, LNP-s, No Pre serve, 2-Dose Series (Lailaihui) 08/11/2020,07/21/2020 H1N1 2009 Influenza, IM 08/14/2009 Hepatitis B, 20+ yrs 11/16/2013,07/20/2013,05/18 Pneumococcal Conjugate Vacci ne, 20-valent ([id number]) 06/06/2022 Pneumococcal Polysaccharide PPV23 (Pneumovax) 09/28/1999 Seasonal [...] encounter Miscellaneous Notes * Telephone Encounter - Lesli Painting RPh - 03/05/2023 1:28 PM EDTSigned Prescriptions: Disp Refills Montelukast Sodium 10 MG Oral Tablet (Sing*90 Tab*3 Sig: Take 1 Tablet by mouth in the morning.Authorizing Provider: DUNIA ESPANA User: LESLI PAINTING Lisinopril 20 MG Oral Tablet (Prinivil) 90 Tab*3 Sig: TAKE 1 TABLET DAILY WITH 10MG TABLET FOR TOTAL DOSE OF 30MG A DAYAuthorizing Provider: DUNIA ESPANA User: LESLI PAINTING Lisinopril 10 MG Oral Tablet (Prinivil) 90 Tab*3 Sig: TAKE 1 TABLET DAILY WITH 20MG DOSE FOR A TOTAL DOSE OF 30MG A DAYAuthorizing Provider: DUNIA ESPANA User: LESLI PAINTING * Telephone Encounter - Mylene Killian CPhT - 03/04/2023 1:30 PM EDT Did you pend patient's preferred pharmacy and medication before forwarding?yes Pharmacy: [id number] Pending Prescriptions: Disp Refills Montelukast Sodium 10 MG Oral Tablet (Sin*90 Tab*1 Sig: Take 1 Tablet by mouth in the morning. Lisinopril 20 MG Oral Tablet (Prinivil) 90 Tab*1 Lisinopril 10 MG Oral Tablet (Prinivil) 90 Tab*1 Last Visit: 12/31/2022 (in office), Visit date not found (telemedicine) Next Visit: 08/04/2023 If no future appointments scheduled, and last appointment is greater than a year ago, please schedule patient for a follow-up appointment Last date the medication was ordered: 09/10/2022 Is this request for a controlled substance?No Urine Drug Screen:No results found for this or any previous visit. Patient Phone Numbers Labs: Lab Results Component Value Date/Time CREAT 1.2 (H) 12/10/2022 02:28 PM CREAT 1.2 (H) 06/05/2020 10:25 AM POTASSIUM 4.4 12/10/2022 02:28 PM POTASSIUM 4.5 06/05/2020 10:25 AM TSH 6.08 (H) 12/10/2022 02:28 PM TSH 3.56 12/09/2019 02:33 PM LDLCALC 135 (H) 01/20/2019 10:31 AM LDLDIRECT 155 (H) 01/20/2019 10:31 AM ALT 13 12/10/2022 02:28 PM ALT 11 08/03/2013 10:50 AM HGBA1C 6.1 (H) 06/19/2021 03:02 PM HGBA1C 5.6 08/02/2019 12:00 AM HGBA1C 5.4 11/06/2017 08:08 AM documented in this encounter Plan of Treatment Upcoming Encounters Date Type Specialty Care Team Description 04/20/2023 Office Visit Orthopedics Bhupinder Ritter MD [address] [place] [address] 08/04/2023 Office Visit Family Medicine Dunia Espana DO [address] [place] [address] 12/15/2023 Office Visit Sleep Disorders Kimmie Billingsley DO [address] [place] [address] Health Maintenance Due Date Last Done Comments Colonoscopy 2003 Fecal Occult Blood Test 2003 Sigmoidoscopy 2003 Depression Screening 02/12/2020 02/11/2019, 09/27/2014 (Discussed) COVID-19 Vaccine (3 - Pfizer series) 10/06/2020 08/11/2020, 07/21/2020 Mammogram 12/02/2022 12/02/2021, 11/2021, 01/01/2021, Additional history exists DXA Scan 2023 Influenza Vaccine (FLU shot) (#1) 2023 04/03/2022, 03/18/2021, 03/30/2020, Additional history exists Albumin/Creatinine Ratio 06/06/2023 022, 01/20/2019, 11/06/2017, Additional history exists GFR 06/11/2023 12/10/2022, 11/28, 06/19/2021, Additional history exists CKD HGB USE SMARTSET 13925 12/11/202312/10, 12/20/2021, 06/05/2020, Additional history exists CKD PHOS USE SMARTSET 27499 12/11/202311/27, 12/20/2021, 06/05/2020, Additional history exists TSH [...] this encounter Medical Devices Implanted Type Area Canal Structure Operator Device Identifier Shelf Expiration Date Model / Serial / Lot Envista Hydrophobic Acrylic Intraocular Lens Implanted:Qty: 1 on 06/17/2022 by Ceasar Valentine MD at OR [facility] Left: Eye BAUSCH [employer] LOMB 05/28/2024 [id number] / [id number] / [id number] Envista Toric Intraocular Lens Implanted:Qty: 1 on 07/01/2022 by Ceasar Valentine MD at OR [facility] Right: Eye [employer]USCH [employer] LOMB 03/28/2023 [id number] / [id number] Align Radial Head And Lock Screw, 22mm Implanted:Qty: 1 on 01/07/2023 by Bhupinder Ritter MD at [place] [facility] Left: Elbow [employer] 04/22/2027 [id number]-22 0 / / [id number] documented as of this encounter Visit Diagnoses Diagnosis Chronic rhinitis Kidney disease, chronic, stage III (GFR 30-59 ml/min) (HCC) Chronic kidney disease, Stage III (moderate) Type 2 diabetes mellitus with hemoglobin A1c goal of less than 7.0% ([facility]) documented in this encounter Advance Directives Latest [...] the patient have Health Care Power of Pig Conveyor Operator? No No Code 06/17/2022 11:34 AM 06/17/2022 5:37 PM Th is order reflects the patients wishes and were consensually agreed upon. Question Answer Comments Discussion of Advance Directives occurred with: Patient Does the patient have a Living Will? No Does the patient have Health Care Power of Pig Conveyor Operator? No Full Code 02/03/2013 1:43 AM 02/15/2013 4:51 PM This o rder reflects the patients wishes and were consensually agreed upon. Care Teams Fiberglass Autobody Repairer Relationship Specialty Start Date End Date Dunia Espana, DO [address] [place] [address] PCP - General Family Medicine 07/01/16 documented as of this encounter
--- OUTSIDE RECORDS SUMMARY | 2023-07-12 11:43 | External Medical Summary | Summary of Care ---
Author Name Unknown Organization [facility] Address [address] [place] [address] Phone [phone] Care Team Providers Care Certified Prosthetist Vice President Name Role Phone Yaniv Plasencia DO Primary Care Provider [phone] Reason for Visit * Reason Onset Date Comments Administrative Follow-Up 04/11/2023 Order p laced in [facility]. Encounter Details Date Type Department Care Team Description 04/11/2023 Telephone [facility] [place] [address] [facility]ings[facility] [place] [address] Administrative Follow-Up (Order placed in ... Allergies No known active allergiesdocumented as of this encounter (statuses as of 04/11/2023) Medications Medication Sig Dispensed Refills Start Date [...] stage III (GFR 30-59 ml/min) ([facility]),Type 2 diabetes mellitus with hemoglobin [...] as of this encounter (statuses as of 04/11/2023) Active Problems Problem Noted Date Closed fracture [...] as of this encounter (statuses as of 04/11/2023) Resolved Problems Problem Noted Date Resolved Date [...] as of this encounter (statuses as of 04/11/2023) Immunizations Name Administration Dates Next Due COVID-19 mRNA, LNP-s, No Pre serve, 2-Dose Series (Pfizer) 08/11/2020,07/21/2020 H1N1 2009 Influenza, IM 08/14/2009 Hepatitis B, 20+ yrs 11/16/2013,07/20/2013,05/18 Pneumococcal Conjugate Vacci ne, 20-valent ([id number]) 06/06/2022 Pneumococcal Polysaccharide PPV23 (Pneumovax) 09/28/1999 Seasonal [...] encounter Miscellaneous Notes * Telephone Encounter - Jessenia Laws - 04/11/2023 10:19 AM EDT [facility]/11/2023. documented in this encounter Plan of Treatment Upcoming Encounters Date Type Specialty Care Team Description 04/20/2023 Office Visit Orthopedics Bhupinder Ritter MD [address] [place] [address] 08/04/2023 Office Visit Family Medicine Yaniv Plasencia, DO [address] [facility] [place] [address] 04/07/2024 Office Visit Sleep Disorders Kimmie Billingsley, DO [address] [place] [address] Health Maintenance Due Date Last Done Comments [...] Additional history exists CKD HGB USE SMARTSET 23641 12/11/202312/10, 12/20/2021, 06/05/2020, Additional history exists CKD PHOS USE SMARTSET 42267 12/11/202311/27, 12/20/2021, 06/05/2020, Additional history exists TSH [...] this encounter Medical Devices Implanted Type Area Director Of Quality Device Identifier Shelf Expiration Date Model / Serial / Lot Envista Hydrophobic Acrylic Intraocular Lens Implanted:Qty: 1 on 06/17/2022 by Ceasar Valentine MD at OR [facility] Left: Eye [employer]OM[employer] 05/28/2024 [id number] / [id number] / [id number] Envista Toric Intraocular Lens Implanted:Qty: 1 on 07/01/2022 by Ceasar Valentine MD at OR [facility] Right: Eye [employer]OM[employer] 03/28/2023 [id number] / [id number] Align Radial Head And Lock Screw, 22mm Implanted:Qty: 1 on 01/07/2023 [place]inder Ritter [place] [facility] Elbow [employer] 04/22/2027 ALN-RHI-22 0 / / [id number] documented as of this encounter Advance Directives [...] the patient have Health Care Power of Shoe Sewing Machine Operator And Tender? No No Code 06/17/2022 11:34 AM 06/17/2022 5:37 PM Th is order reflects the patients wishes and were consensually agreed upon. Question Answer Comments Discussion of Advance Directives occurred with: Patient Does the patient have a Living Will? No Does the patient have Health Care Power of Shoe Sewing Machine Operator And Tender? No Full Code 02/03/2013 1:43 AM 02/15/2013 4:51 PM This o rder reflects the patients wishes and were consensually agreed upon. Care Teams Certified Prosthetist Vice President Relationship Specialty Start Date End Date Yaniv Plasencia, [address] [place] [address] PCP - General Family Medicine 07/01/16 documented as of this encounter
--- OUTSIDE RECORDS SUMMARY | 2023-07-12 11:43 | External Medical Summary | Summary of Care ---
Author Name Unknown Organization [facility] Address [address] [place] [address] Phone [phone] Care Team Providers Care Media Coordinator Name Role Phone Yaniv Plasencia DO Primary Care Provider [phone] Encounter Details Date Type Department Care Team Description 04/08/2023 Telephone Pulmonary Medicine, [facility] [address] [place] [address] Kimmie Billingsley DO [address] [place] [address] Allergies No known active allergiesdocumented as of this encounter (statuses as of 04/08/2023) Medications Medication Sig Dispensed Refills Start Date [...] hemoglobin A1c goal of less than 7.0% ([facility]) TAKE 1 TABLET DAILY WITH [...] as of this encounter (statuses as of 04/08/2023) Active Problems Problem Noted Date Closed fracture [...] as of this encounter (statuses as of 04/08/2023) Resolved Problems Problem Noted Date Resolved Date [...] as of this encounter (statuses as of 04/08/2023) Immunizations Name Administration Dates Next Due COVID-19 mRNA, LNP-s, No Pre serve, 2-Dose Series (Pfizer) 08/11/2020,07/21/2020 H1N1 2009 Influenza, IM 08/14/2009 Hepatitis B, 20+ yrs 11/16/2013,07/20/2013,05/18 Pneumococcal Conjugate Vacci ne, 20-valent ([id number]) 06/06/2022 Pneumococcal Polysaccharide PPV23 (Pneumovax) 09/28/1999 Seasonal [...] encounter Miscellaneous Notes * Telephone Encounter - Ray Chavez - 04/08/2023 7:39 AM EDT Orders in 04/08 adapt supplies documented in this encounter Plan of Treatment Upcoming Encounters Date Type Specialty Care Team Description 04/20/2023 Office Visit Orthopedics Bhupinder Ritter MD [address] [place] [address] [place] [address] 08/04/2023 Office Visit Family Medicine Yaniv Plasencia DO [address] [place] [address] 04/07/2024 Office Visit Sleep Disorders Kimmie Billingsley DO [address] [place] [address] Health Maintenance Due Date Last Done Comments [...] Additional history exists CKD HGB USE SMARTSET 61604 12/11/202312/10, 12/20/2021, 06/05/2020, Additional history exists CKD PHOS USE SMARTSET 07349 12/11/202311/27, 12/20/2021, 06/05/2020, Additional history exists TSH [...] this encounter Medical Devices Implanted Type Area Supervisor Mixing Device Identifier Shelf Expiration Date Model / Serial / Lot Envista Hydrophobic Acrylic Intraocular Lens Implanted:Qty: 1 on 06/17/2022 by Ceasar Valentine MD at OR [facility] Left: Eye BAUSCH [employer] LOMB 05/28/2024 [id number] / [id number] / [id number] Envista Toric Intraocular Lens Implanted:Qty: 1 on 07/01/2022 by Ceasar Valentine MD at OR [facility] Right: Eye [employer]OM[employer] 03/28/2023 [id number] / [id number] Align Radial Head And Lock Screw, 22mm Implanted:Qty: 1 on 01/07/2023 [place] [facility] Elbow [employer] 04/22/2027 ALN-RHI-22 0 / / [id number] documented as of this encounter Advance Directives [...] the patient have Health Care Power of Turnaround Engineer? No No Code 06/17/2022 11:34 AM 06/17/2022 5:37 PM Th is order reflects the patients wishes and were consensually agreed upon. Question Answer Comments Discussion of Advance Directives occurred with: Patient Does the patient have a Living Will? No Does the patient have Health Care Power of Turnaround Engineer? No Full Code 02/03/2013 1:43 AM 02/15/2013 4:51 PM This o rder reflects the patients wishes and were consensually agreed upon. Care Teams Media Coordinator Relationship Specialty Start Date End Date Yaniv Plasencia, [address] [place] [address] PCP - General Family Medicine 07/01/16 documented as of this encounter
--- OUTSIDE RECORDS SUMMARY | 2023-07-12 11:43 | External Medical Summary | Summary of Care ---
Author Name Unknown Organization [facility] Address [address] [place] [address] Phone [phone] Care Team Providers Care Laboratory Tester Name Role Phone Yaniv Plasencia DO Primary Care Provider [phone] Reason for Visit * Reason Onset Date Comments Encounter Created in Error 04/23/2023 Encounter Details Date Type Department Care Team (Late st Contact Info) Description 04/23/2023 Telephone [facility] [address] [place] [address] Services, Scheduling [address] [place] [address] Encounter Created in Error Allergies No known active allergiesdocumented as of this encounter (statuses as of 04/23/2023) Medications Medication Sig Dispensed Refills Start Date [...] as of this encounter (statuses as of 04/23/2023) Active Problems Problem Noted Date Diagnosed Date [...] as of this encounter (statuses as of 04/23/2023) Resolved Problems Problem Noted Date Diagnosed Date [...] as of this encounter (statuses as of 04/23/2023) Immunizations Name Administration Dates Next Due COVID-19 mRNA, LNP-s, No Pre serve, 2-Dose Series (Pfizer) 08/11/2020,07/21/2020 H1N1 2009 Influenza, IM 08/14/2009 Hepatitis B, 20+ yrs 11/16/2013,07/20/2013,05/18 Pneumococcal Conjugate Vacci ne, 20-valent ([id number]) 06/06/2022 Pneumococcal Polysaccharide PPV23 (Pneumovax) 09/28/1999 Seasonal [...] encounter Miscellaneous Notes * Telephone Encounter - VASU Quezada - 04/23/2023 2:04 PM EDT Error documented in this encounter Plan of Treatment Upcoming Encounters Date Type Department Care Team (Late st Contact Info) Description 06/01/2023 10:30 AM EST Office Visit Orthopaedics, [facility] [address] [place] [address] Bhupinder Ritter MD [address] [facility] [place] [address] 08/04/2023 2:40 PM EST Office Visit Family [facility] [address] [facility] [place] [address] Yaniv Plas[place], DO [address] [facility] [place] [address] 04/07/2024 3:00 PM EDT Office Visit Sleep Disorders [facility]tr [facility] [address] [facility] [address] Kimmie Billingsley, DO [address] [facility] [place] [address] Health Maintenance Due Date Last Done Comments [...] Additional history exists CKD HGB USE SMARTSET 74580 12/11/202312/10, 12/20/2021, 06/05/2020, Additional history exists CKD PHOS USE SMARTSET 72836 12/11/202311/27, 12/20/2021, 06/05/2020, Additional history exists TSH [...] this encounter Medical Devices Implanted Type Area Golf Cart Repairer Device Identifier Shelf Expiration Date Model / Serial / Lot Envista Hydrophobic Acrylic Intraocular Lens Implanted:Qty: 1 on 06/17/2022 by Ceasar Valentine MD at OR [facility] Left: Eye [employer]CH [employer]OMB 05/28/2024 [id number] / [id number] / [id number] Envista Toric Intraocular Lens Implanted:Qty: 1 on 07/01/2022 by Ceasar Valentine MD at OR [facility] Right: Eye BAUSCH [employer] LOMB 03/28/2023 [id number] / [id number] Align Radial Head And Lock Screw, 22mm Implanted:Qty: 1 on 01/07/2023 by Bhupinder Ritter MD at [facility] Left: Elbow [employer] 04/22/2027 ALN-RHI-22 0 / / [id number] documented as of this encounter Advance Directives [...] the patient have Health Care Power of Educational Interpreter? No No Code 06/17/2022 11:34 AM 06/17/2022 5:37 PM Th is order reflects the patients wishes and were consensually agreed upon. Question Answer Comments Discussion of Advance Directives occurred with: Patient Does the patient have a Living Will? No Does the patient have Health Care Power of Educational Interpreter? No Full Code 02/03/2013 1:43 AM 02/15/2013 4:51 PM This o rder reflects the patients wishes and were consensually agreed upon. Care Teams Laboratory Tester Relationship Specialty Start Date End Date Yaniv [place] [address] [place] [address] PCP - General Family Medicine 07/01/16 documented as of this encounter
--- NOTE | 2023-07-12 12:03 | Emergency Department Note ---
Impression & Plan Sepsis, Acute cholecystitis ED Provider Note NAME: RICARDO MAGANA AGE: 63 SEX: F : 1960 ARRIVES VIA: Walk-In INFORMANT: Patient, ED PROVIDER(S): Braulio Lorenzana MD CHIEF COMPLAINT: Abdominal pain, fever MEDICAL DECISION MAKING: Patient presents due to concern for abdominal pain associated fever. IV was established sepsis protocols initiated with IV fluids blood cultures lactate procalcitonin and Zosyn. Bio fire chest x-ray also obtained along with right upper quadrant ultrasound due to concern for possible septic gallbladder disease. Blood work does show a white count of 12 with a hemoglobin 9.5. Platelet count is unremarkable. Kidney function unremarkable with a sodium 135. LFTs unremarkable procalcitonin is not elevated. Urinalysis does not show evidence of obvious infection. Bio fire negative. Chest x-ray without obvious pneumonia. Right upper quadrant ultrasound does show concern for acute cholecystitis. I did speak with the on-call general surgeon who stated the patient would benefit from IV antibiotics and fluids he does not believe the patient requires emergent surgery at this time. I did convey that the patient did meet for sepsis criteria. Patient did eventually have improvement in her tachycardia with additional fluids. I did speak with the on-call hospitalist service LAURA Tiwari and the patient was admitted by medicine service with Dr. Khan. Discussion w/ other healthcare providers: Dr. Bates with general surgery LAURA Tiwari and Dr. Khan inpatient medicine service Prior /Outside records reviewed: I reviewed an operative report from Dr. Baker had been seen due to concern for postmenopausal bleeding I did undergo exam under anesthesia polypectomy hysteroscopy polypectomy and dilation and curettage. Differential diagnosis: Appendicitis, ovarian cyst, ovarian torsion, ectopic , TOA, PID, diverticulitis, UTI, obstruction, inflammatory bowel disease, renal colic, PUD, pancreatitis, biliary pathology, hernia, volvulus, constipation, as well as other pathologies were considered. Diagnostics, as interpreted by me: ECG: None Cardiac monitoring: An order was placed for continuous cardiac monitoring. The monitor shows a rate of 112 with tachycardic and regular rhythm. Patient was placed on pulse oximetry Medical decision rules: None Imaging studies: I informally interpreted the patient's right upper quadrant ultrasound which does show thickened gallbladder wall with formal report to follow. I informally interpreted the patient's chest x-ray which does not show obvious pneumonia or pneumothorax HPI: Patient presents due to concern for abdominal pain and fever. The patient states that the abdominal pain is in the right upper abdomen and began yesterday. The patient states that has been fairly constant. It is not necessarily exacerbated by eating. Patient does not have any prior history of abdominal surgery. Patient did not have a bowel movement this morning denies any history of kidney stone no blood in urine or stool no dysuria. Patient denies any chest pains or shortness of breath. The patient did have a temperature of 101.8 today. The patient did not take anything for fever and has not take anything for abdominal pain since yesterday. Patient denies any falls or trauma. The patient has had an occasional chronic cough but this is unchanged from before no upper respiratory congestion or sore throat noted PAST MEDICAL HISTORY: See Below PAST SURGICAL HISTORY: See Below SOCIAL HISTORY: See Below HOME MEDICATIONS: See Below ALLERGIES: See Below VITALS: See Below PHYSICAL EXAMINATION: GENERAL: Mildly ill in appearance but in no apparent distress. EYE EXAM: Normal conjunctiva. PERRL, no anisocoria and EOM's grossly intact w/o pain. OROPHARYNX: Moist mucus membranes, grossly normal dentition. NECK: Supple, no nuchal rigidity, no adenopathy, non-tender. No signs of meningismus. FROM of the neck with good chin to chest and neck extension. No stridor. LUNGS: Clear to auscultation. Normal chest wall mechanics. HEART: Tachycardic and regular, no MRG. ABDOMEN: Abdomen soft, right upper quadrant pain, equivocal Justin sign, no lower abdominal pain, no masses, no rebound or guarding. BACK: No CVA TTP. SKIN: No rashes and no bruising. UPPER EXTREMITIES: Upper extremities are grossly normal. LOWER EXTREMITIES: Grossly normal, no edema. NEURO EXAM: A&O x3, cranial nerves II-XII grossly intact, normal speech, moves all 4 extremities. Past Med/Surg History Medical History Insulin resistance Previously documented as DMII, diet and exercise managed -- A1C now 5.6% on 08/02/19 Morbid obesity Arthritis Chronic kidney disease STAGE 3-HX-F/U PCP GERD (gastroesophageal reflux disease) Hypothyroidism Depression Migraine HX Hypertension Staphylococcal infectious disease (02/28/13) 2012. Multiple spinal and epidural abscesses. Treated with IV ABX and transferred to acute care facility. Surgical History History of elbow surgery History of open reduction and internal fixation (ORIF) procedure RIGHT WRIST Family History Father Family history of diabetes mellitus Social History Smoking Status: Never smoker Second Hand Exposure: Yes (FATHER SMOKED); Do You Dip or Chew Tobacco: No; Hx Alcohol Use: No Hx Substance Use: No Preferred Language: Azeri Communication Ability: Effective Visual Impairment: No Limitations Railroad Dispatcher Required: No Beliefs That Will Affect Care: None Current Living Situation: Spouse Feels Safe at Home: Yes Assistive Devices: Glasses Allergies Allergies Allergy/AdvReac Type Severity Reaction Status Date / Time No Known Allergies Allergy Verified 07/12/23 12:48 Home Meds Home Medications Medication Instructions Recorded Confirmed acetaminophen 500 mg tablet 1,000 mg PO Q6H PRN Pain 07/29/19 07/12/23 (Tylenol Extra Strength) amitriptyline 25 mg tablet 25 mg PO HS 07/29/19 07/12/23 bupropion HCl 150 mg tablet,12 hr 150 mg PO BID 07/29/19 07/12/23 sustained-release cetirizine 10 mg capsule 10 mg PO QPM 07/29/19 07/12/23 escitalopram oxalate 20 mg tablet 20 mg PO QPM 07/29/19 07/12/23 (Lexapro) montelukast 10 mg tablet 10 mg PO PM 07/29/19 07/12/23 levothyroxine 112 mcg tablet 112 mcg PO QAM 12/25/22 07/12/23 lisinopril 10 mg tablet See Rx Instructions .Route .COMPLEX 07/12/23 07/12/23 lisinopril 20 mg tablet See Rx Instructions .Route .COMPLEX 07/12/23 07/12/23 Results & Data (ED) Vital Signs Vital Signs - 24 hr 07/12/23 11:44 07/12/23 12:13 07/12/23 12:52 Temperature 37.2 C Temperature Source Temporal Artery Scan Pulse Rate 123 H 118 H Pulse Rate from SpO2 Sensor Pulse Rhythm Regular Respiratory Rate 18 20 Respiratory Effort / Characteristics Non-Labored Spontaneous Respiratory Depth Normal Blood Pressure 157/77 H 123/76 Blood Pressure Mean 103 81 Blood Pressure Position Sitting Pulse Oximetry 93 93 Oxygen Delivery Method Room Air Room Air Sepsis Recent Fever Within 48 Hours No Sepsis New/Unexplained Change in Mental Status N/A Sepsis Action Taken by Nursing No Action Required 07/12/23 12:53 07/12/23 12:54 07/12/23 13:00 Temperature Temperature Source Pulse Rate 115 H 115 H 119 H Pulse Rate from SpO2 Sensor 115 H 119 H Pulse Rhythm Respiratory Rate 20 23 Respiratory Effort / Characteristics Respiratory Depth Blood Pressure Blood Pressure Mean Blood Pressure Position Pulse Oximetry 91 91 Oxygen Delivery Method Sepsis Recent Fever Within 48 Hours Sepsis New/Unexplained Change in Mental Status Sepsis Action Taken by Nursing 07/12/23 13:00 07/12/23 13:19 07/12/23 13:19 Temperature Temperature Source Pulse Rate 108 H Pulse Rate from SpO2 Sensor 109 H Pulse Rhythm Respiratory Rate 23 Respiratory Effort / Characteristics Respiratory Depth Blood Pressure 118/67 118/67 Blood Pressure Mean 84 83 Blood Pressure Position Pulse Oximetry 89 L Oxygen Delivery Method Sepsis Recent Fever Within 48 Hours Sepsis New/Unexplained Change in Mental Status Sepsis Action Taken by Nursing 07/12/23 14:15 07/12/23 14:21 07/12/23 14:21 Temperature Temperature Source Pulse Rate 114 H 109 H Pulse Rate from SpO2 Sensor 110 H Pulse Rhythm Respiratory Rate 16 20 Respiratory Effort / Characteristics Respiratory Depth Blood Pressure 127/72 Blood Pressure Mean 83 Blood Pressure Position Pulse Oximetry 93 Oxygen Delivery Method Sepsis Recent Fever Within 48 Hours Sepsis New/Unexplained Change in Mental Status Sepsis Action Taken by Nursing 07/12/23 14:30 07/12/23 14:30 Temperature Temperature Source Pulse Rate 108 H Pulse Rate from SpO2 Sensor 107 H Pulse Rhythm Respiratory Rate 21 Respiratory Effort / Characteristics Respiratory Depth Blood Pressure 109/61 Blood Pressure Mean 76 Blood Pressure Position Pulse Oximetry 92 Oxygen Delivery Method Sepsis Recent Fever Within 48 Hours Sepsis New/Unexplained Change in Mental Status Sepsis Action Taken by [facility] Medications Current Medication List: was personally reviewed by me Laboratory Data Attestation: I reviewed the patient's lab results. 07/12/23 12:38 07/12/23 12:38 Lab Results 07/12/23 07/12/23 Range/Units 12:20 12:38 WBC 12.30 H (4.8-10.8) K/ul RBC 4.12 L (4.20-5.40) M/uL Hgb 11.5 L (12.0-16.0) g/dl Hct 35.2 L (37.0-47.0) % MCV 85.4 (80.0-100.0) fL MCH 27.9 (25.0-34.0) pg MCHC 32.7 (32.0-36.0) g/dL RDW Std Deviation 44.1 (36.4-46.3) fL RDW Coeff of [place] 14.3 (11.5-14.5) % Plt Count 262 (130-400) K/uL MPV 9.1 L (9.4-12.4) fL Immature Gran % (Auto) 0.5 % Neut % (Auto) 84.0 % Lymph % (Auto) 8.9 % [place] % (Auto) 5.6 % Eos % (Auto) 0.7 % Baso % (Auto) 0.3 % Neut # (Auto) 10.32 H (1.40-6.50) K/uL Lymph # (Auto) 1.10 L (1.20-3.40) K/uL [place] # (Auto) 0.69 H (0.11-0.59) K/uL Eos # (Auto) 0.09 (0.00-0.50) K/uL Baso # (Auto) 0.04 (0.00-0.20) K/uL Immature Gran # (Auto) 0.06 (0.01-0.20) K/uL Sodium 135 L (136-145) mmol/L Potassium 4.0 (3.5-5.1) mmol/L Chloride 101 (98-107) mmol/L Carbon Dioxide 25 (21-32) mmol/L Anion Gap 9 (3-11) BUN 22 (6-23) mg/dl Creatinine 1.11 (0.6-1.2) mg/dl Est Cr Clr Drug Dosing 62.7 ml/min Est GFR ( Amer) 60.4 ml/min Est GFR (Non-Af Amer) 52.1 ml/min BUN/Creatinine Ratio 19.8 (10-20) Glucose 135 H (70-99(Fasting)) mg/dl Lactate 0.9 (0.4-2.0) mmol/L Calcium 9.7 (8.6-10.3) mg/dl Total Bilirubin 0.8 (0.2-1.0) mg/dl AST 11 L (13-39) U/L ALT 9 (7-52) U/L Alkaline Phosphatase 69 (34-104) U/L Total Protein 8.2 (6.0-8.3) gm/dl Albumin 4.0 (3.4-5.0) gm/dl Globulin 4.2 H (2.5-4.0) gm/dl Albumin/Globulin Ratio 1.0 (0.9-2) Lipase 9 L (11-82) U/L Procalcitonin < 0.05 (0-0.5) ng/ml Urine Color Dark Yellow Urine Appearance Cloudy A (Clear) Urine pH 6.0 (4.5-7.5) Ur Specific [place] 1.024 (1.000-1.030) Urine Protein 1+ H (Negative) Urine Glucose (UA) Negative (Negative) Urine Ketones Trace H (Negative) Urine Blood Negative (Negative) Urine Nitrite Negative (Negative) Urine Bilirubin 1+ H (Negative) Urine Urobilinogen Negative (Negative) Ur Leukocyte Esterase 2+ H (Negative) Urine WBC (Auto) >30 H (0-5) /hpf Urine RBC (Auto) 0-4 (0-4) /hpf U Hyaline Cast (Auto) 5-10 H (0-5) /lpf U Epithel Cells (Auto) >30 H (0-5) /lpf Urine Bacteria (Auto) 1+ H (Negative) Administered Medications Dextrose/Sodium Chloride (D5w And Nss) 1,000 mls @ 100 mls/hr IV .Q10H [facility] Stop: 08/11/23 17:59 Last Admin: 07/12/23 18:16 Dose: 100 mls/hr Documented By: AMARILIS Discontinued Medications Piperacillin Sod/Tazobactam Sod (Zosyn) 4.5 gm in 100 mls @ 200 mls/hr IV NOW ONE Stop: 07/12/23 12:42 Last Infusion: 07/12/23 14:42 Dose: Infused Documented By: Admin: 07/12/23 13:14 Dose: 200 mls/hr Documented By: YUONG Sodium Chloride (Nss) 1,000 mls @ 999 mls/hr IV .Q1H1M ONE Stop: 07/12/23 13:13 Last Infusion: 07/12/23 17:06 Dose: Infused Documented By: Admin: 07/12/23 13:07 Dose: 999 mls/hr Documented By: YOUNG Acetaminophen (Ofirmev) 1,000 mg in 100 mls @ 400 mls/hr IV NOW STA Stop: 07/12/23 12:27 Last Infusion: 07/12/23 14:42 Dose: Infused Documented By: Admin: 07/12/23 13:10 Dose: 400 mls/hr Documented By: YOUNG Sodium Chloride (Nss) 1,000 mls @ 999 mls/hr IV .Q1H1M ONE Stop: 07/12/23 13:15 Last Admin: 07/12/23 14:19 Dose: 999 mls/hr Documented By: OSMIN Morphine Sulfate (Morphine Sulfate 4 Mg/Ml 1 Ml Carp\Vial) 4 mg IV NOW STA Stop: 07/12/23 12:14 Last Admin: 07/12/23 13:07 Dose: 4 mg Documented By: YOUNG Ondansetron HCl (Ondansetron Inj 2 Mg/Ml 2 Ml Vial) 4 mg IV NOW STA Stop: 07/12/23 12:14 Last Admin: 07/12/23 13:07 Dose: 4 mg Documented By: YOUNG Imaging Data Radiologist's Impression: Chest X-Ray 07/12/23 12:13 SINGLE VIEW CHEST CLINICAL HISTORY: Right upper quadrant abdominal pain. Cough and fever FINDINGS: An AP, portable, upright chest radiograph is compared to study dated 03/24/2013. The cardiomediastinal silhouette is top normal for projection. There is chronic elevation of the right hemidiaphragm and mild bibasilar atelectasis. The lungs and pleural spaces are otherwise clear. No pneumothorax is seen. The bony thorax is grossly intact. IMPRESSION: No active disease in the chest. ACT 112: Negative or not required by law. Electronically signed by: Scottie Dunham M.D. 07/12/2023 1:21 PM Gallbladder Ultrasound 07/12/23 12:14 ULTRASOUND RIGHT UPPER QUADRANT ABDOMEN CLINICAL HISTORY: Fever. Right upper quadrant abdominal pain. COMPARISON STUDY: Abdominal CT dated 01/31/2013 TECHNIQUE: Real-time, grayscale, and color flow sonography of the right upper quadrant of the abdomen was performed. Images are reviewed in the transverse and longitudinal planes. FINDINGS: Liver: The liver is normal in size and echotexture. There is no intrahepatic biliary ductal dilatation. The main portal vein is patent. Gallbladder: The gallbladder is distended, measuring up to 13 cm in length. There are numerous gallstones. The gallbladder wall is thickened and edematous measuring up to 8 mm. No pericholecystic fluid is seen. A sonographic Justin's sign could not be assessed as the patient received analgesia. The common bile duct measures is not well visualized due to overlying bowel gas. Pancreas: Not visualized due to overlying bowel gas. Right kidney: Survey images of the right kidney demonstrate normal size and echotexture. There is no hydronephrosis. Ascites: None. IMPRESSION: 1. Cholelithiasis with sonographic evidence of acute cholecystitis. Surgical assessment is advised. 2. There is no intra or extrahepatic biliary ductal dilatation. 3. The common bile duct and pancreas were not visualized. ACT 112: Negative or not required by law. Electronically signed by: Scottie Dunham M.D. 07/12/2023 2:02 PM Discharge Plan Visit Data Chief Complaint: Abdominal Pain Stated Complaint: RIGHT SIDED ABDOMINAL PAIN, FEVER ED Provider: Braulio Lorenzana Discharge Problem: Sepsis, Acute cholecystitis Patient Disposition: Admitted As Inpatient Discharge Instructions Interventions: ED Discharge Assessment Last Done: 07/12/23 16:41
[2023-07-12] MEDS ORDERED: ONDANSETRON INJ 2 MG/ML 2 ML VIAL IV STA (12:13)
[2023-07-12] MEDS ORDERED: SODIUM CHLORIDE 0.9% 1,000 ML IV ONE ×2 (12:13→12:15)
[2023-07-12] MEDS ORDERED: PIPERACILLIN/TAZOBACTAM 4.5 GM/100 ML BAG IV ONE (12:13)
[2023-07-12] MEDS ORDERED: ACETAMINOPHEN 1,000 MG/100 ML VIAL IV STA (12:13)
[2023-07-12] MEDS ORDERED: MoRPHine SULFATE 4 MG/ML 1 ML CARP\\VIAL IV STA (12:13)
[2023-07-12 12:59] LABS: Basophils # (auto) 0.04 K/uL (0.00-0.20); Basophils % (auto) 0.3 %; Eosinophils # (auto) 0.09 K/uL (0.00-0.50); Eosinophils % (auto) 0.7 %; Hematocrit (blood only) 35.2 % (37.0-47.0); Hemoglobin 11.5 g/dl (12.0-16.0); Immature Granulocytes # (auto) 0.06 K/uL (0.01-0.20); Immature Granulocytes % (auto) 0.5 %; Lymphocytes % (auto) 8.9 %; Mean Corpuscular Hemoglobin 27.9 pg (25.0-34.0); Mean Corpuscular Hgb Conc 32.7 g/dL (32.0-36.0); Mean Corpuscular Volume 85.4 fL (80.0-100.0); Mean Platelet Volume 9.1 fL (9.4-12.4); Monocytes # (auto) 0.69 K/uL (0.11-0.59); Monocytes % (auto) 5.6 %; Neutrophils # (auto) 10.32 K/uL (1.40-6.50); Platelet Count 262 K/uL (130-400); RDW Coefficient of Variation 14.3 % (11.5-14.5); RDW Standard Deviation 44.1 fL (36.4-46.3); Red Blood Count 4.12 M/uL (4.20-5.40)
[2023-07-12 13:12] LABS: BUN Creatinine Ratio 19.8 (10-20); Bilirubin,Total 0.8 mg/dl (0.2-1.0); Calcium 9.7 mg/dl (8.6-10.3); Creatinine Clr Calc Pharmacy 62.7 ml/min; Est GFR (African American) 60.4 ml/min; Est GFR (Non-African American) 52.1 ml/min; Globulin 4.2 gm/dl (2.5-4.0); Total Protein 8.2 gm/dl (6.0-8.3)
[2023-07-12 13:16] LABS: Appearance Urine Cloudy (Clear); Bacteria Urine Automated 1+ (Negative); Blood Urine Negative (Negative); Color Urine Dark Yellow; Epithelial Cell Urine Auto >30 /lpf (0-5); Glucose Urine UA Negative (Negative); Ketones Urine Trace (Negative); Leukocyte Esterase Urine 2+ (Negative); Nitrite Urine Negative (Negative); Protein Urine 1+ (Negative); Specific Gravity Urine 1.024 (1.000-1.030); Urobilinogen Urine Negative (Negative); WBC Urine Automated >30 /hpf (0-5)
[2023-07-12 13:17] LABS: Bilirubin Urine 1+ (Negative)
--- NOTE | 2023-07-12 13:23 | XRay Report ---
SINGLE VIEW CHEST CLINICAL HISTORY: Right upper quadrant abdominal pain. Cough and fever FINDINGS: An AP, portable, upright chest radiograph is compared to study dated 03/24/2013. The cardiom ediastinal silhouette is top normal for projection. There is chronic elevation of the right hemidiaph ragm and mild bibasilar atelectasis. The lungs and pleural spaces are otherwise clear. No pneumothora x is seen. The bony thorax is grossly intact. IMPRESSION: No active disease in the chest. ACT 112: Negative or not required by law. Electronically signed by: Scottie Dunham M.D. 07/12/2023 1:21 PM
--- NOTE | 2023-07-12 14:04 | Ultrasound Report ---
ULTRASOUND RIGHT UPPER QUADRANT ABDOMEN CLINICAL HISTORY: Fever. Right upper quadrant abdominal pain. COMPARISON STUDY: Abdominal CT dated 01/31/2013 TECHNIQUE: Real-time, grayscale, and color flow sonography of the right upper quadrant of the abdomen was performed. Images are reviewed in the transverse and longitudinal planes. FINDINGS: Liver: The liver is normal in size and echotexture. There is no intrahepatic biliary ductal dilatatio n. The main portal vein is patent. Gallbladder: The gallbladder is distended, measuring up to 13 cm in length. There are numerous gallst ones. The gallbladder wall is thickened and edematous measuring up to 8 mm. No pericholecystic fluid is seen. A sonographic Justin's sign could not be assessed as the patient received analgesia. The com mon bile duct measures is not well visualized due to overlying bowel gas. Pancreas: Not visualized due to overlying bowel gas. Right kidney: Survey images of the right kidney demonstrate normal size and echotexture. There is no hydronephrosis. Ascites: None. IMPRESSION: 1. Cholelithiasis with sonographic evidence of acute cholecystitis. Surgical assessment is advised. 2. There is no intra or extrahepatic biliary ductal dilatation. 3. The common bile duct and pancreas were not visualized. ACT 112: Negative or not required by law. Electronically signed by: Scottie Dunham M.D. 07/12/2023 2:02 PM
[2023-07-12 14:25] LABS: RBC Urine Automated 0-4 /hpf (0-4)
[2023-07-12 15:04] LABS: Adenovirus PCR Not Detected (NotDetected); Bordetella parapertussis PCR Not Detected (NotDetected); Bordetella pertussis PCR Not Detected (NotDetected); Chlamydia pneumoniae PCR Not Detected (NotDetected); Coronavirus 229E PCR Not Detected (NotDetected); Coronavirus CoV-2 (COVID19)PCR Not Detected (NotDetected); Coronavirus HKU1 PCR Not Detected (NotDetected); Coronavirus NL63 PCR Not Detected (NotDetected); Coronavirus OC43PCR Not Detected (NotDetected); Human Metapneumovirus PCR Not Detected (NotDetected); Influenza A PCR Not Detected (NotDetected); Influenza B PCR Not Detected (NotDetected); Mycoplasma pneumoniae PCR Not Detected (NotDetected); Parainfluenza Virus 1 PCR Not Detected (NotDetected); Parainfluenza Virus 2 PCR Not Detected (NotDetected); Parainfluenza Virus 3 PCR Not Detected (NotDetected); Parainfluenza Virus 4 PCR Not Detected (NotDetected); Respiratory Syncytial VirusPCR Not Detected (NotDetected); Rhinovirus/Enterovirus PCR Not Detected (NotDetected)
--- NOTE | 2023-07-12 15:30 | History & Physical Report ---
Date of Service July 12, 2023 Assessment & Plan (1) Sepsis: (2) Acute cholecystitis: Plan: Admit to [facility] Patient presenting from home with reports of right upper quadrant abdominal pain. Upon presentation, patient tachycardic in the 120s, labs show WBC 12.3 K. Afebrile, BP stable, normal lactic acid. HR improving after IVF Gallbladder ultrasound showing signs of acute cholecystitis S/p IV Zosyn in the ED, continue with N.p.o. until evaluated by general surgery IVF, pain and nausea control CXR unremarkable, will obtain preop EKG General surgery consult (3) Hypoxia: Plan: Patient mildly hypoxic on room air at 88% -underlying VASU and obesity Saturating well on 2 L of oxygen via nasal cannula, wean as able CXR unremarkable (4) Abnormal urinalysis: Plan: UA suggest possible UTI, patient asymptomatic Follow urine culture (5) Hypertension: Plan: Chronic, stable, BP controlled Continue lisinopril (6) Hypothyroidism: Plan: Chronic, stable Continue levothyroxine (7) Depression: Plan: Chronic, stable Continue home meds DVT PROPHYLAXIS SCDs due to likely surgical procedure Patient seen in collaboration with Dr. Khan. I spent a total of 75 minutes coordinating, documenting, and providing care for this patient excluding time spent in the performance of separately billed services. This included personally reviewing all current laboratories and imaging studies, medication reconciliation, outpatient chart review, and discussion with specialists. History of Present Illness Chief Complaint: Right upper quadrant abdominal pain Primary Care Provider: Yaniv Plasencia DO 63-year-old female with PMH hypothyroidism, dyslipidemia, obesity, VASU on CPAP, HTN, depression, and other problems listed below who presents to the ED for evaluation of right upper quadrant abdominal pain. History is obtained from the patient and review of outpatient PCP records. Patient reports she developed right upper quadrant abdominal pain a few days ago. States that initially felt like gas pain. Pain acutely worsened yesterday. She describes the pain as sharp and persistent. She reports a fever of 101 today. Denies chills and rigors. No nausea, vomiting, diarrhea. Denies chest pain or shortness of breath. No lightheadedness, dizziness, diaphoresis, syncopal events. She denies urinary symptoms. In the ED, patient was tachycardic in the 120s. Labs show WBC 12.3 K. BP stable, normal lactic acid. She was mildly hypoxic on room air at 88% and is currently saturating well on 2 L of oxygen via nasal cannula. Gallbladder ultrasound shows evidence of acute cholecystitis. Patient was given IV Tylenol, IV morphine, IV Zofran, IV Zosyn, IVF. Allergies Allergy/AdvReac Type Severity Reaction Status Date / Time No Known Allergies Allergy Verified 07/12/23 12:48 Home Medications Medication Instructions Recorded Confirmed Type acetaminophen 500 mg tablet 1,000 mg PO Q6H PRN Pain 07/29/19 07/12/23 History (Tylenol Extra Strength) amitriptyline 25 mg tablet 25 mg PO HS 07/29/19 07/12/23 History bupropion HCl 150 mg tablet,12 hr 150 mg PO BID 07/29/19 07/12/23 History sustained-release cetirizine 10 mg capsule 10 mg PO QPM 07/29/19 07/12/23 History escitalopram oxalate 20 mg tablet 20 mg PO QPM 07/29/19 07/12/23 History (Lexapro) montelukast 10 mg tablet 10 mg PO PM 07/29/19 07/12/23 History levothyroxine 112 mcg tablet 112 mcg PO QAM 12/25/22 07/12/23 History lisinopril 10 mg tablet See Rx Instructions .Route .COMPLEX 07/12/23 07/12/23 History lisinopril 20 mg tablet See Rx Instructions .Route .COMPLEX 07/12/23 07/12/23 History Past Med/Surg History Medical History Insulin resistance Previously documented as DMII, diet and exercise managed -- A1C now 5.6% on 08/02/19 Morbid obesity Arthritis Chronic kidney disease STAGE 3-HX-F/U PCP GERD (gastroesophageal reflux disease) Hypothyroidism Depression Migraine HX Hypertension Staphylococcal infectious disease (02/28/13) 2012. Multiple spinal and epidural abscesses. Treated with IV ABX and transferred to acute care facility. Surgical History History of elbow surgery History of open reduction and internal fixation (ORIF) procedure RIGHT WRIST Family History Father Family history of diabetes mellitus Social History Smoking Status: Never smoker Second Hand Exposure: Yes (FATHER SMOKED); Do You Dip or Chew Tobacco: No; Hx Alcohol Use: No Hx Substance Use: No Preferred Language: Bulgarian Communication Ability: Effective Visual Impairment: No Limitations Hospital Cook Required: No Beliefs That Will Affect Care: None Current Living Situation: Spouse Feels Safe at Home: Yes Safety Concerns: Feels Safe At This Time Assistive Devices: BiPap Physical Exam Constitutional: WD/WN, vitals as above + obese; no acute distress Eyes: PERRL, conjunctivae normal, anicteric sclerae ENMT: external ear and nose normal, oropharynx normal Respiratory: normal respiratory effort, lungs clear to auscultation Cardiovascular: Rate/Rhythm: regular rhythm and + tachycardic Vessels: normal peripheral pulses Extremities: no edema Gastrointestinal (Abdomen): Percussion/Palpation: + abdomen tender (Mild, right upper quadrant) and abdomen soft; abdomen not rigid Musculoskeletal: no cyanosis or clubbing, extremities motor strength 5/5 Skin: no rashes, warm and dry Neurologic: PERRL, EOMI, accommodation nl, no face palsy, no dysarthria Psychiatric: A+Ox3, euthymic affect Results & Data Results & Data Vital Signs (Past 12 Hours) Vital Signs Temp Pulse Resp BP Pulse Ox O2 Del Method 07/12/23 14:30 109/61 07/12/23 14:30 108 H 21 92 07/12/23 14:21 109 H 20 93 07/12/23 14:21 127/72 07/12/23 14:15 114 H 16 07/12/23 13:19 108 H 23 89 L 07/12/23 13:19 118/67 07/12/23 13:00 118/67 07/12/23 13:00 119 H 23 91 07/12/23 12:54 115 H 07/12/23 12:53 115 H 20 91 07/12/23 12:52 123/76 07/12/23 12:13 118 H 20 93 Room Air 07/12/23 11:44 37.2 C 123 H 18 157/77 H 93 Room Air Laboratory Results Short CBC 07/12/23 Range/Units 12:38 WBC 12.30 H (4.8-10.8) K/ul Hgb 11.5 L (12.0-16.0) g/dl Hct 35.2 L (37.0-47.0) % Plt Count 262 (130-400) K/uL BMP 07/12/23 12:38 Sodium 135 L Potassium 4.0 Chloride 101 Carbon Dioxide 25 BUN 22 Creatinine 1.11 Glucose 135 H Calcium 9.7 Liver Function 07/12/23 Range/Units 12:38 Total Bilirubin 0.8 (0.2-1.0) mg/dl AST 11 L (13-39) U/L ALT 9 (7-52) U/L Alkaline Phosphatase 69 (34-104) U/L Albumin 4.0 (3.4-5.0) gm/dl Urine 07/12/23 Range/Units 12:20 Urine Color Dark Yellow Urine Appearance Cloudy A (Clear) Urine pH 6.0 (4.5-7.5) Ur Specific [place] 1.024 (1.000-1.030) Urine Protein 1+ H (Negative) Urine Glucose (UA) Negative (Negative) Diagnostic Findings Chest X-Ray 07/12/23 12:13 SINGLE VIEW CHEST CLINICAL HISTORY: Right upper quadrant abdominal pain. Cough and fever FINDINGS: An AP, portable, upright chest radiograph is compared to study dated 03/24/2013. The cardiomediastinal silhouette is top normal for projection. There is chronic elevation of the right hemidiaphragm and mild bibasilar atelectasis. The lungs and pleural spaces are otherwise clear. No pneumothorax is seen. The bony thorax is grossly intact. IMPRESSION: No active disease in the chest. ACT 112: Negative or not required by law. Electronically signed by: Scottie Dunham M.D. 07/12/2023 1:21 PM Gallbladder Ultrasound 07/12/23 12:14 ULTRASOUND RIGHT UPPER QUADRANT ABDOMEN CLINICAL HISTORY: Fever. Right upper quadrant abdominal pain. COMPARISON STUDY: Abdominal CT dated 01/31/2013 TECHNIQUE: Real-time, grayscale, and color flow sonography of the right upper quadrant of the abdomen was performed. Images are reviewed in the transverse and longitudinal planes. FINDINGS: Liver: The liver is normal in size and echotexture. There is no intrahepatic biliary ductal dilatation. The main portal vein is patent. Gallbladder: The gallbladder is distended, measuring up to 13 cm in length. There are numerous gallstones. The gallbladder wall is thickened and edematous measuring up to 8 mm. No pericholecystic fluid is seen. A sonographic Justin's sign could not be assessed as the patient received analgesia. The common bile duct measures is not well visualized due to overlying bowel gas. Pancreas: Not visualized due to overlying bowel gas. Right kidney: Survey images of the right kidney demonstrate normal size and echotexture. There is no hydronephrosis. Ascites: None. IMPRESSION: 1. Cholelithiasis with sonographic evidence of acute cholecystitis. Surgical assessment is advised. 2. There is no intra or extrahepatic biliary ductal dilatation. 3. The common bile duct and pancreas were not visualized. ACT 112: Negative or not required by law. Electronically signed by: Scottie Dunham M.D. 07/12/2023 2:02 PM Code Status & VTE Plan VTE Prophylaxis Plan VTE Prophylaxis will be ordered: Yes Supervising Physician Co-Signing Physician Notes Care coordinated with LAURA Yoder. Agree with above note. Patient seen and examined. Please refer to her notes for full details. Vital signs reviewed. Physical exam: General exam: Alert and oriented. Not in acute distress. CVS: S1 and S2 heard, regular rate and rhythm, no murmurs. RS: Clear to auscultation, no wheezing or crackles. ABD: Soft, bowel sounds present, RUQ tenderness present, no distention. CITY ATTORNEY: Nonfocal. EXT: No edema, no erythema. Labs: Reviewed. Assessment and plan: 63F presents with right upper quadrant abdominal pain started yesterday. Having nausea. cannot take deep breath because of pain. Having feers. Hemodynamics ok. NO chest pain . Acute cholecystitis iv Zosyn fluids pain control antiemetic prn follow labs surgery consult VASU cpap q hs Other diagnosis and plan of care as per LAURA Yoder. . Black ortiz MD.
[2023-07-12] MEDS ORDERED: PIPERACILLIN/TAZOBACTAM 4.5 GM in DEXTROSE 5% MINI-B 100 ML IV SCH (17:45)
[2023-07-12] MEDS ORDERED: MoRPHine SULFATE 2 MG/ML CARP IV PRN (17:45)
[2023-07-12] MEDS: D5W AND NSS 1,000 ML IV SCH (18:16)
[2023-07-12] MEDS ORDERED: bisacodyL 10 MG SUPP PR STA (18:35)
[2023-07-12] MEDS: PIPERACILLIN/TAZOBACTAM 4.5 GM in DEXTROSE 5% MINI-B 100 ML IV SCH (18:52)
[2023-07-12] MEDS ORDERED: hydrALAZINE HCL 20 MG/ML VIAL IV PRN (20:06)
[2023-07-12] MEDS: PROMETHAZINE HCL 12.5 MG in SODIUM CHLORIDE 0.9% 50 ML IV PRN (21:04)
[2023-07-12] MEDS: ACETAMINOPHEN 325 MG TAB PO PRN (21:05)
[2023-07-12] MEDS: ESCITALOPRAM OXALATE 20 MG TAB PO SCH (21:10)
[2023-07-12] MEDS: MONTELUKAST SODIUM 10 MG TABLET PO SCH (21:10)
[2023-07-12] MEDS: AMITRIPTYLINE HCL 25 MG TAB PO SCH (21:10)
[2023-07-12] MEDS: buPROPion SR 150 MG TABCR PO SCH (21:10)
[2023-07-12] MEDS: MICONAZOLE NITRATE 2% CR 30 GM TUBE EXT SCH (21:11)
[2023-07-12] MEDS: CETIRIZINE HCL 10 MG TABLET PO SCH (21:23)
[2023-07-13] MEDS: PIPERACILLIN/TAZOBACTAM 4.5 GM in DEXTROSE 5% MINI-B 100 ML IV SCH ×3 (02:50→17:35)
[2023-07-13] MEDS: D5W AND NSS 1,000 ML IV SCH ×2 (03:28→14:17)
[2023-07-13] MEDS: LEVOTHYROXINE SODIUM 112 MCG TABLET PO SCH (05:46)
[2023-07-13 06:49] LABS: Hemoglobin 9.6 g/dl (12.0-16.0); Mean Corpuscular Hemoglobin 27.7 pg (25.0-34.0); Mean Corpuscular Volume 89.6 fL (80.0-100.0); Mean Platelet Volume 9.3 fL (9.4-12.4); Platelet Count 205 K/uL (130-400); RDW Coefficient of Variation 14.5 % (11.5-14.5); Red Blood Count 3.46 M/uL (4.20-5.40); White Blood Count 7.63 K/ul (4.8-10.8)
[2023-07-13 07:19] LABS: Albumin Globulin Ratio 0.9 (0.9-2); Albumin Level 3.3 gm/dl (3.4-5.0); BUN Creatinine Ratio 16.8 (10-20); Bilirubin,Total 0.5 mg/dl (0.2-1.0); Calcium 8.7 mg/dl (8.6-10.3); Creatinine Clr Calc Pharmacy 58.5 ml/min; Est GFR (African American) 55.5 ml/min; Est GFR (Non-African American) 47.9 ml/min; Globulin 3.5 gm/dl (2.5-4.0); Total Protein 6.8 gm/dl (6.0-8.3)
[2023-07-13] MEDS: buPROPion SR 150 MG TABCR PO SCH ×2 (07:55→20:45)
[2023-07-13] MEDS: MICONAZOLE NITRATE 2% CR 30 GM TUBE EXT SCH ×2 (07:55→20:46)
--- NOTE | 2023-07-13 09:37 | Electrocardiogram Report ---
Test Reason : Blood Pressure : / mmHG Vent. Rate : 094 BPM Atrial Rate : 094 BPM P-R Int : 148 ms QRS Dur : 112 ms QT Int : 358 ms P-R-T Axes : 052 024 059 degrees QTc Int : 447 ms Normal sinus rhythm Incomplete right bundle branch block When compared with ECG of 12-JUL-2023 16:07, Incomplete right bundle branch block is now Present Confirmed by Sriram Thompson ([id number]) on 07/13/2023 9:37:18 AM Referred By: REFERRED SELF Confirmed By:Sriram Thompson
--- NOTE | 2023-07-13 09:46 | Surgery Consultation ---
Date of Consultation July 13, 2023 Assessment & Plan (1) Acute cholecystitis: IVF IV abx to OR in AM for lap sydnie Present on Admission?: Yes History of Present Illness Attending Physician: Deacon Floyd MD History of Present Illness This is a 63YO admitted from ED with complaints of abdominal pain and fever. The pain is in the right upper quadrant with associated nausea. She was admitted and begun on IVF and IV abx. The pain has improved. She was found to have gallstones in her work-up. Allergies Allergy/AdvReac Type Severity Reaction Status Date / Time No Known Allergies Allergy Verified 07/12/23 12:48 Home Medications Medication Instructions Recorded Confirmed Type acetaminophen 500 mg tablet 1,000 mg PO Q6H PRN Pain 07/29/19 07/12/23 History (Tylenol Extra Strength) amitriptyline 25 mg tablet 25 mg PO HS 07/29/19 07/12/23 History bupropion HCl 150 mg tablet,12 hr 150 mg PO BID 07/29/19 07/12/23 History sustained-release cetirizine 10 mg capsule 10 mg PO QPM 07/29/19 07/12/23 History escitalopram oxalate 20 mg tablet 20 mg PO QPM 07/29/19 07/12/23 History (Lexapro) montelukast 10 mg tablet 10 mg PO PM 07/29/19 07/12/23 History levothyroxine 112 mcg tablet 112 mcg PO QAM 12/25/22 07/12/23 History lisinopril 10 mg tablet See Rx Instructions .Route .COMPLEX 07/12/23 07/12/23 History lisinopril 20 mg tablet See Rx Instructions .Route .COMPLEX 07/12/23 07/12/23 History Patient History Medical History Insulin resistance Previously documented as DMII, diet and exercise managed -- A1C now 5.6% on 08/02/19 Morbid obesity Arthritis Chronic kidney disease STAGE 3-HX-F/U PCP GERD (gastroesophageal reflux disease) Hypothyroidism Depression Migraine HX Hypertension Staphylococcal infectious disease (02/28/13) 2012. Multiple spinal and epidural abscesses. Treated with IV ABX and transferred to acute care facility. Surgical History History of elbow surgery History of open reduction and internal fixation (ORIF) procedure RIGHT WRIST Family History Father Family history of diabetes mellitus Social History Smoking Status: Never smoker Second Hand Exposure: Yes (FATHER SMOKED); Do You Dip or Chew Tobacco: No; Hx Alcohol Use: No Hx Substance Use: No Preferred Language: Cambodian Communication Ability: Effective Visual Impairment: No Limitations Grocery Checker Required: No Beliefs That Will Affect Care: None Current Living Situation: Spouse Feels Safe at Home: Yes Safety Concerns: Feels Safe At This Time Assistive Devices: BiPap Review of Systems Constitutional: + fever and + chills; no anorexia Eyes: no problem reported Ear, Nose, Mouth, Throat: no problem reported Respiratory: + cough; no dyspnea Cardiovascular: no chest pain Gastrointestinal: + abdominal pain and + nausea; no vomiti ng and no change in bowel habits Genitourinary: no dysuria Musculoskeletal: + back pain Integumentary: no problem reported Neurologic: no localized weakness and no generalized weakness Psychiatric: no behavioral changes Hematologic / Lymphatic: no easy bleeding and no easy bruising Physical Exam Constitutional: WD/WN, vitals as above Eyes: PERRL, conjunctivae normal, anicteric sclerae Neck: trachea midline Respiratory: normal respiratory effort, lungs clear to auscultation Cardiovascular: RRR, no murmur, no edema Gastrointestinal (Abdomen): Inspection/Auscultation: abdomen normal to inspection and normal bowel sounds; abdomen not distended Percussion/Palpation: + abdomen tender and abdomen soft; no guarding and abdomen not rigid Musculoskeletal: Head/Neck/Chest: normocephalic and head atraumatic Skin: no rashes, warm and dry Results & Data Vital Signs (Past 12 Hours) Vital Signs Temp Pulse Pulse Resp BP Pulse Ox O2 Del Method 07/13/23 07:30 37.1 C 89 18 112/70 94 Room Air 07/12/23 22:10 91 H 17 97 O2 Flow Rate 07/13/23 07:30 07/12/23 22:10 2 Diagnostic Findings ULTRASOUND RIGHT UPPER QUADRANT ABDOMEN CLINICAL HISTORY: Fever. Right upper quadrant abdominal pain. COMPARISON STUDY: Abdominal CT dated 01/31/2013 TECHNIQUE: Real-time, grayscale, and color flow sonography of the right upper quadrant of the abdomen was performed. Images are reviewed in the transverse and longitudinal planes. FINDINGS: Liver: The liver is normal in size and echotexture. There is no intrahepatic biliary ductal dilatation. The main portal vein is patent. Gallbladder: The gallbladder is distended, measuring up to 13 cm in length. There are numerous gallstones. The gallbladder wall is thickened and edematous measuring up to 8 mm. No pericholecystic fluid is seen. A sonographic Justin's sign could not be assessed as the patient received analgesia. The common bile duct measures is not well visualized due to overlying bowel gas. Pancreas: Not visualized due to overlying bowel gas. Right kidney: Survey images of the right kidney demonstrate normal size and echotexture. There is no hydronephrosis. Ascites: None. IMPRESSION: 1. Cholelithiasis with sonographic evidence of acute cholecystitis. Surgical assessment is advised. 2. There is no intra or extrahepatic biliary ductal dilatation. 3. The common bile duct and pancreas were not visualized.
[2023-07-13] MEDS: ACETAMINOPHEN 325 MG TAB PO PRN ×2 (11:54→20:51)
--- NOTE | 2023-07-13 16:11 | Hospitalist Progress Note ---
Date of Service July 13, 2023 Assessment & Plan (1) Sepsis: (2) Acute cholecystitis: Plan: Patient presenting from home with reports of right upper quadrant abdominal pain. Upon presentation, patient tachycardic in the 120s, labs show WBC 12.3 K. Afebrile, BP stable, normal lactic acid. Acute cholecystitis --Gallbladder ultrasound:Cholelithiasis with sonographic evidence of acute cholecystitis. Surgical assessment is advised. There is no intra or extrahepatic biliary ductal dilatation. The common bile duct and pancreas were not visualized. Normal LFTs --Blood cultures negative to date Continue Zosyn, IV fluids N.p.o. after midnight for cholecystectomy tomorrow Appreciate surgery input Pain control as needed (3) Hypoxia: Plan: Transient Hypoxia CXR:No active disease in the chest. Saturating well on room air Monitor (4) Abnormal urinalysis: Plan: UA suggest possible UTI, patient asymptomatic Follow urine culture Empirically on antibiotics as above Hypothyroidism Continue levothyroxine (5) Hypertension: Plan: BP relatively low Hold lisinopril Monitor BP (6) Hypothyroidism: Plan: Chronic, stable Continue levothyroxine (7) Depression: Plan: Chronic, stable Continue home meds Morbid obesity BMI 43 DVT Px: SCDs for now Admission and Anticipated Discharge Date Admission Date: July 12, 2023 Subjective Patient is seen and examined at bedside States having right sided abdominal pain Also reports constipation Denies any nausea, vomiting, chest pain, dizziness, dyspnea No other complaints Review of Systems Review of Systems: All systems reviewed & are unremarkable except as noted in Subjective Physical Exam Physical Exam: Physical Exam: Vitals signs as noted above General Appearance:Obese, no apparent distress Head: normocephalic, Atraumatic Eyes: normal inspection, EOMI Neck: supple, Trachea midline Respiratory/Chest: Decreased breath sounds, CTA, No accessory muscle use Cardiovascular: S1, S2, No murmur Abdomen/GI:Soft, RUQ tender, Bowel sounds present Extremities/Musculoskeletal:normal inspection, no edema Neurologic/Psych:AAOX3, grossly no focal neurological deficits Skin: normal color, warm Results & Data Results & Data Vital Signs (Past 12 Hours) Vital Signs Temp Pulse Resp BP Pulse Ox O2 Del Method 07/13/23 08:15 Room Air 07/13/23 07:30 37.1 C 89 18 112/70 94 Room Air Laboratory Results Short CBC 07/13/23 Range/Units 06:07 WBC 7.63 (4.8-10.8) K/ul Hgb 9.6 L (12.0-16.0) g/dl Hct 31.0 L (37.0-47.0) % Plt Count 205 (130-400) K/uL BMP 07/13/23 06:07 Sodium 138 Potassium 4.0 Chloride 106 Carbon Dioxide 26 BUN 20 Creatinine 1.19 Glucose 135 H Calcium 8.7 Liver Function 07/13/23 Range/Units 06:07 Total Bilirubin 0.5 (0.2-1.0) mg/dl AST 17 (13-39) U/L ALT 15 (7-52) U/L Alkaline Phosphatase 60 (34-104) U/L Albumin 3.3 L (3.4-5.0) gm/dl
[2023-07-13] MEDS: AMITRIPTYLINE HCL 25 MG TAB PO SCH (20:45)
[2023-07-13] MEDS: CETIRIZINE HCL 10 MG TABLET PO SCH (20:45)
[2023-07-13] MEDS: ESCITALOPRAM OXALATE 20 MG TAB PO SCH (20:46)
[2023-07-13] MEDS: MONTELUKAST SODIUM 10 MG TABLET PO SCH (20:46)
[2023-07-14] MEDS: D5W AND NSS 1,000 ML IV SCH ×3 (00:17→13:04)
[2023-07-14] MEDS: PIPERACILLIN/TAZOBACTAM 4.5 GM in DEXTROSE 5% MINI-B 100 ML IV SCH ×3 (01:50→19:43)
[2023-07-14] MEDS: LEVOTHYROXINE SODIUM 112 MCG TABLET PO SCH (05:53)
[2023-07-14] MEDS ORDERED: ceFAZolin 2000MG 2,000 MG/15 ML SYR IV SCH (06:00)
[2023-07-14 07:15] LABS: Hematocrit (blood only) 31.3 % (37.0-47.0); Hemoglobin 9.3 g/dl (12.0-16.0); Mean Corpuscular Hemoglobin 26.8 pg (25.0-34.0); Mean Corpuscular Hgb Conc 29.7 g/dL (32.0-36.0); Mean Corpuscular Volume 90.2 fL (80.0-100.0); Mean Platelet Volume 9.1 fL (9.4-12.4); Platelet Count 216 K/uL (130-400); RDW Coefficient of Variation 14.3 % (11.5-14.5); Red Blood Count 3.47 M/uL (4.20-5.40); White Blood Count 6.43 K/ul (4.8-10.8)
[2023-07-14] MEDS ORDERED: LIDOCAINE 2% 2 ML VIAL/AMP(20MG/ML) INFIL ONE (07:21)
[2023-07-14] MEDS ORDERED: ONDANSETRON INJ 2 MG/ML 2 ML VIAL ONE ×2 (07:21→10:06)
[2023-07-14] MEDS ORDERED: fentaNYL citrate PF 100 MCG/2 ML VIAL ONE (07:21)
[2023-07-14] MEDS ORDERED: PROPOFOL IV EMULSION 10 MG/ML 20 ML VIAL IV ONE (07:21)
[2023-07-14] MEDS ORDERED: SUGAMMADEX SODIUM 200 MG/2 ML VIAL IV ONE (07:21)
[2023-07-14] MEDS ORDERED: MIDAZOLAM HCL 1 MG/ML 2ML VIAL ONE (07:21)
[2023-07-14] MEDS: buPROPion SR 150 MG TABCR PO SCH ×2 (07:29→19:42)
[2023-07-14] MEDS: MICONAZOLE NITRATE 2% CR 30 GM TUBE EXT SCH ×2 (07:30→19:44)
[2023-07-14 07:31] LABS: Calcium 8.7 mg/dl (8.6-10.3); Creatinine Clr Calc Pharmacy 65.1 ml/min; Est GFR (African American) 63.1 ml/min; Est GFR (Non-African American) 54.4 ml/min; Magnesium 2.2 mg/dl (1.7-2.4)
[2023-07-14] MEDS ORDERED: SUCCINYLCHOLINE CHLORIDE 20 MG/ML 10 ML VIAL IV ONE (08:40)
[2023-07-14] MEDS ORDERED: KETAMINE HCL 10MG/ML SYR ONE (08:43)
[2023-07-14] MEDS ORDERED: ARTIFICIAL TEARS OP OINT 3.5 GM TUBE ONE ×2 (08:46→10:28)
[2023-07-14] MEDS ORDERED: BUPIVACAINE/EPINEPHRINE 0.5% MPF 1:200,000 30 ML VIAL ONE (08:48)
[2023-07-14] MEDS: LACTATED RINGER'S 1,000 ML IV SCH (09:10)
--- NOTE | 2023-07-14 09:10 | Anesthesiology Consultation ---
Date of Service July 14, 2023 Assessment & Plan Chart Review Chart Review: Acceptable Risk for Surgery and Patient NOT seen in Pre Admission Testing Consults Requested none History Surgery Operation Date: 07/14/23 09:20 Proposed Procedures p Laparoscopic Cholecystectomy - Jamal Bates MD Height/Weight Height: 5 ft 4 in Weight: 114.5 kg Allergies Allergy/AdvReac Type Severity Reaction Status Date / Time No Known Allergies Allergy Verified 07/12/23 12:48 Medications Home Medications Medication Instructions Recorded Confirmed Last Taken acetaminophen 500 mg tablet 1,000 mg PO Q6H PRN Pain 07/29/19 07/12/23 Unknown (Tylenol Extra Strength) amitriptyline 25 mg tablet 25 mg PO HS 07/29/19 07/12/23 07/11/23 bupropion HCl 150 mg tablet,12 hr 150 mg PO BID 07/29/19 07/12/23 07/11/23 sustained-release cetirizine 10 mg capsule 10 mg PO QPM 07/29/19 07/12/23 07/11/23 escitalopram oxalate 20 mg tablet 20 mg PO QPM 07/29/19 07/12/23 07/11/23 (Lexapro) montelukast 10 mg tablet 10 mg PO PM 07/29/19 07/12/23 07/11/23 levothyroxine 112 mcg tablet 112 mcg PO QAM 12/25/22 07/12/23 07/12/23 lisinopril 10 mg tablet See Rx Instructions .Route .COMPLEX 07/12/23 07/12/23 07/11/23 lisinopril 20 mg tablet See Rx Instructions .Route .COMPLEX 07/12/23 07/12/23 07/11/23 Active Medications Generic Name Dose Route Start Last Admin Trade Name Freq PRN Reason Stop Dose Admin Acetaminophen 650 mg 07/12/23 17:45 07/13/23 20:51 Acetaminophen 325 Mg Tab PO 08/11/23 17:44 650 mg Q4H PRN Administration pain/fever Amitriptyline HCl 25 mg 07/12/23 21:00 07/13/23 20:45 Amitriptyline Hcl 25 Mg Tab PO 08/11/23 20:59 25 mg HS MARYSE Administration Bupropion HCl 150 mg 07/12/23 21:00 07/14/23 07:29 Bupropion Sr 150 Mg Tabcr PO 08/11/23 20:59 Not Given BID MARYSE Cetirizine HCl 10 mg 07/12/23 21:00 07/13/23 20:45 Cetirizine Hcl 10 Mg Tablet PO 08/11/23 20:59 10 mg QPM MARYSE Administration Escitalopram Oxalate 20 mg 07/12/23 21:00 07/13/23 20:46 Escitalopram Oxalate 20 Mg Tab PO 08/11/23 20:59 20 mg QPM MARYSE Administration Dextrose/Sodium Chloride 1,000 mls @ 100 mls/hr 07/12/23 18:00 07/14/23 00:17 D5w And Nss IV 08/11/23 17:59 100 mls/hr .Q10H MARYSE Administration Piperacillin Sod/Tazobactam 100 mls @ 25 mls/hr 07/12/23 18:00 07/14/23 05:52 Sod 4.5 gm/ Dextrose IV 07/22/23 17:59 Infused Q8H MARYSE Infusion Protocol Promethazine HCl 12.5 mg/ 50.5 mls @ 202 mls/hr 07/12/23 20:08 07/12/23 21:19 Sodium Chloride IV 08/11/23 20:07 Infused Q6H PRN Infusion Nausea And Vomiting Levothyroxine Sodium 112 mcg 07/13/23 06:30 07/14/23 05:53 Levothyroxine Sodium 112 Mcg Tablet PO 08/12/23 06:29 112 mcg DAILYBB MARYSE Administration Miconazole Nitrate 1 appln 07/12/23 21:00 07/14/23 07:30 Miconazole Nitrate 2% Cr 30 Gm Tube EXT 08/11/23 20:59 1 appln BID MARYSE Administration Montelukast Sodium 10 mg 07/12/23 21:00 07/13/23 20:46 Montelukast Sodium 10 Mg Tablet PO 08/11/23 20:59 10 mg PM MARYSE Administration NPO Date Last Intake of Fluids: 07/13/23 Time Last Intake of Fluids: 20:51 Last Intake of Fluids Comment: sip of water 0553 w/med Date Last Intake of Solids: 07/13/23 Time Last Intake of Solids: 20:00 Past Medical History Medical History Insulin resistance Previously documented as DMII, diet and exercise managed -- A1C now 5.6% on 08/02/19 Morbid obesity Arthritis Chronic kidney disease STAGE 3-HX-F/U PCP GERD (gastroesophageal reflux disease) Hypothyroidism Depression Migraine HX Hypertension Staphylococcal infectious disease (02/28/13) 2012. Multiple spinal and epidural abscesses. Treated with IV ABX and transferred to acute care facility. Past Family History Family History Father Family history of diabetes mellitus Past Surgical History Surgical History History of elbow surgery History of open reduction and internal fixation (ORIF) procedure RIGHT WRIST Social History Smoking Status: Never smoker Do You Dip or Chew Tobacco: No Hx Alcohol Use: No Hx Substance Use: No Review of Systems Constitutional: + fever and + chills; no anorexia Eyes: no problem reported Ear, Nose, Mouth, Throat: no problem reported Respiratory: + cough; no dyspnea Cardiovascular: no chest pain Gastrointestinal: + abdominal pain and + nausea; no vomiting and no change in bowel habits Genitourinary (Female): no dysuria Musculoskeletal: + back pain Integumentary: no problem reported Neurologic: no localized weakness and no generalized weakness Psychiatric: no behavioral changes Hematologic / Lymphatic: no easy bleeding and no easy bruising Physical Exam Vital Signs Last Vital Signs Temp 37.3 C 07/14/23 08:57 Pulse 96 H 07/14/23 08:57 Resp 20 07/14/23 08:57 BP 138/81 07/14/23 08:57 Pulse Ox 96 07/14/23 08:57 O2 Del Method Room Air 07/14/23 08:57 O2 Flow Rate 2 07/13/23 20:45 Constitutional WD/WN, vitals as above + obese; no acute distress Eyes PERRL, conjunctivae normal, anicteric sclerae ENMT external ear and nose normal, oropharynx normal Neck trachea midline Respiratory normal respiratory effort, lungs clear to auscultation Cardiovascular RRR, no murmur, no edema Rate/Rhythm: regular rhythm and + tachycardic Vessels: normal peripheral pulses Extremities: no edema Gastrointestinal (Abdomen) Inspection/Auscultation: abdomen normal to inspection and normal bowel sounds; abdomen not distended Percussion/Palpation: + abdomen tender and abdomen soft; no guarding and abdomen not rigid Musculoskeletal no cyanosis or clubbing, extremities motor strength 5/5 Head/Neck/Chest: normocephalic and head atraumatic Skin no rashes, warm and dry Neurologic PERRL, EOMI, accommodation nl, no face palsy, no dysarthria Psychiatric A+Ox3, euthymic affect Testing Laboratory Results 07/14/23 06:47 07/14/23 06:47 Urine Color Dark Yellow 07/12/23 12:20 Urine Appearance Cloudy (Clear) A 07/12/23 12:20 Urine pH 6.0 (4.5-7.5) 07/12/23 12:20 Ur Specific [place]wood 1.024 (1.000-1.030) 07/12/23 12:20 Urine Protein 1+ (Negative) H 07/12/23 12:20 Urine Glucose (UA) Negative (Negative) 07/12/23 12:20 Urine Ketones Trace (Negative) H 07/12/23 12:20 Urine Nitrite Negative (Negative) 07/12/23 12:20 Ur Leukocyte Esterase 2+ (Negative) H 07/12/23 12:20 Urine WBC (Auto) >30 /hpf (0-5) H 07/12/23 12:20 Urine RBC (Auto) 0-4 /hpf (0-4) 07/12/23 12:20 U Hyaline Cast (Auto) 5-10 /lpf (0-5) H 07/12/23 12:20 U Epithel Cells (Auto) >30 /lpf (0-5) H 07/12/23 12:20 Urine Bacteria (Auto) 1+ (Negative) H 07/12/23 12:20 07/12/23 12:43 Aerobic Blood Culture - Preliminary Blood No growth in Aerobic bottle after 24 hours. Anaerobic Blood Culture - Preliminary No growth in Anaerobic bottle after 24 hours. 07/12/23 12:38 Aerobic Blood Culture - Preliminary Blood No growth in Aerobic bottle after 24 hours. Anaerobic Blood Culture - Preliminary No growth in Anaerobic bottle after 24 hours. 07/12/23 12:20 Urine Culture - Preliminary Urine,Clean Catch Pin-point growth present, reincubating. 07/12/23 18:00 Urine Culture - Preliminary Urine,Clean Catch No growth - Less than 1,000 colonies/mL, Final report to follow.
[2023-07-14] MEDS ORDERED: ATROPINE SULFATE 0.1 MG/ML 10ML SYR IV PRN (09:12)
[2023-07-14] MEDS ORDERED: PROMETHAZINE HCL 12.5 MG in SODIUM CHLORIDE 0.9% 50 ML IV PRN (09:12)
--- NOTE | 2023-07-14 09:34 | History & Physical Bridge Note ---
Date of Service July 14, 2023 History & Physical Bridge Note I have examined the patient, reviewed the History & Physical and in the interval since the performance of the History & Physical I have noted the following changes of clinical significance: no changes noted
[2023-07-14] MEDS ORDERED: DEXAMETHASONE SOD INJ 4 MG/ML VIAL ONE ×2 (10:06)
--- NOTE | 2023-07-14 11:03 | Post Operative Brief Note ---
Immediate Post Op Note v1 Date of Surgery July 14, 2023 Pre & Post Diagnosis Operation Date: 07/14/23 09:20 Pre-Op Diagnosis: Acute Cholecystitis Post-Op Diagnosis: Acute Cholecystitis, hydrops of cystic duct I identified the patient and participated in the time-out.: Yes Procedure Operation Date: 07/14/23 09:20 Actual Procedures p Laparoscopic Cholecystectomy(Not Applicable) - Jamal Bates MD Surgeon Jamal Bates MD Technician Support Engineer none Estimated Blood Loss 35 Findings Consistent with Post-Op Diagnosis
--- NOTE | 2023-07-14 11:09 | Operative Report ---
Post Operative Report Pre & Post Diagnosis Operation Date: 07/14/23 09:20 Pre-Op Diagnosis: Acute Cholecystitis Post-Op Diagnosis: Acute Cholecystitis, hydrops of cystic duct I identified the patient and participated in the time-out.: Yes Procedure Operation Date: 07/14/23 09:20 Actual Procedures p Laparoscopic Cholecystectomy(Not Applicable) - Jamal Bates MD Surgeon Jamal Bates MD Trash Collector Truck Driver none Estimated Blood Loss 35 Findings Consistent with Post-Op Diagnosis Acute cholecystitis, hydrops of the gallbladder Specimens Gallbladder to pathology Drains None Anesthesia Type General Complications None Indications This is a 63-year-old female who was admitted with acute cholecystitis. She was began on IV fluids IV antibiotics. She was taken to the OR for laparoscopic cholecystectomy. We went over the risks in detail. Description of Procedure The patient was taken the OR and underwent excellent general endotracheal anesthesia. Their abdomen is prepped and draped normal sterile fashion. Transverse supraumbilical incision was made and dissection was taken down to identify the anterior fascia. Two Vicryl's were placed on either side of the midline and his midline was then incised. The peritoneal cavity was entered bluntly with Marisela clamp. A 12mm Davison trocar was then inserted and secured. Good pneumoperitoneum was achieved to 15 mmHg pressure. Patient is placed in head up and rolled to the left. A 11mm subxiphoid and two 5mm lateral ports were placed in the normal fashion. The gallbladder was identified was acutely inflamed. An aspirator was then used to aspirate the gallbladder, hydrops of the gallbladder was noted. She had a large caudate lobe which made visualization difficult but possible. The fundus of the gallbladder was retracted superiorly. The neck of the gallbladder was grasped and then retracted laterally. This splayed open the hepatocystic triangle. Attention was then to taking down the peritoneal attachments to identify the cystic duct and cystic artery. Once these were skeletonized and a medial and lateral window was created between the gallbladder fossa and the duct, thereby ensuring the critical view. Three clips were then placed distally on cystic duct 1 proximally the cystic duct was transected. Two clips were then placed approximately cystic artery one distally, the cystic artery was transected. An electrocautery hook was then used to move the gallbladder off the gallbladder fossa. There was some bile spillage. The gallbladder was then placed in Endobag and brought out through the supraumbilical incision. The pneumoperitoneum was re-established and abdomen was irrigated out until the suction fluid was clear. There were some areas on the gallbladder fossa which were raw and were cauterized. The ports were then removed and the abdomen decompressed. The fascia of the supraumbilical incision was closed with Vicryls. 0.5% Marcaine with epinephrine local was to create a local field block. Interrupted Vicryl was used to close the skin. Steri-Strips and benzoin were used to reinforce the incisions. Sterile dressings were applied. Patient tolerated the procedure without complication and sent to the postop recovery period of observation. He will then be sent to the floor for the rest of his care. I attest to the content of the Intraoperative Record and any orders documented therein. Any exceptions are noted below.
[2023-07-14] MEDS: fentaNYL citrate PF 100 MCG/2 ML VIAL IV PRN ×4 (11:22→11:44)
[2023-07-14] MEDS ORDERED: HYDROmorphone INJ 1 MG/ML SYRINGE IV PRN (12:00)
[2023-07-14] MEDS ORDERED: HYDROmorphone INJ 1 MG/ML SYRINGE ONE (12:07)
[2023-07-14] MEDS ORDERED: DROPERIDOL 5 MG/2 ML VIAL ONE (12:18)
[2023-07-14] MEDS ORDERED: DROPERIDOL 5 MG/2 ML VIAL IV STA (12:21)
[2023-07-14] MEDS ORDERED: oxyCODONE/ACETAMINOPHEN 5mg/325mg TAB PO PRN ×2 (12:46)
[2023-07-14] MEDS ORDERED: IBUPROFEN 600 MG TAB PO PRN (12:46)
[2023-07-14] MEDS ORDERED: ACETAMINOPHEN 325 MG TAB PO PRN (12:46)
[2023-07-14] MEDS: MoRPHine SULFATE 4 MG/ML 1 ML CARP\\VIAL IV PRN ×2 (13:57→21:47)
--- NOTE | 2023-07-14 14:11 | Anesthesiology Progress Note ---
Date of Service July 14, 2023 Anesthesia Post Procedure Vital Signs Vital Signs: Temp Pulse Pulse Resp BP Pulse Ox O2 Del Method 07/14/23 13:54 36.6 C 98 H 18 161/93 H 93 Nasal Cannula 07/14/23 13:09 36.5 C 96 H 16 150/86 H 95 Nasal Cannula 07/14/23 12:47 36.6 C 93 H 17 143/84 H 94 Nasal Cannula 07/14/23 12:25 36.3 C L 91 H 22 156/88 H 93 Nasal Cannula 07/14/23 12:15 93 H 20 144/110 H 93 Nasal Cannula 07/14/23 12:05 91 H 19 172/104 H 97 Nasal Cannula 07/14/23 11:55 93 H 20 160/95 H 95 Nasal Cannula 07/14/23 11:45 93 H 16 162/75 H 94 Nasal Cannula 07/14/23 11:35 94 H 16 159/92 H 94 Nasal Cannula 07/14/23 11:25 94 H 16 170/87 H 94 Nasal Cannula 07/14/23 11:15 96 H 16 162/85 H 94 Oxymask 07/14/23 11:09 37.5 C 97 H 16 169/77 H 94 Oxymask 07/14/23 08:57 37.3 C 96 H 20 138/81 96 Room Air 07/14/23 06:33 92 H 95 Room Air 07/14/23 06:30 36.8 C 91 H 18 100/67 92 Room Air 07/13/23 20:45 Room Air, Nasal Cannula, CPAP 07/13/23 20:34 36.8 C 101 H 18 143/82 H 96 Room Air 07/13/23 17:22 36.8 C 95 H 18 118/76 95 Room Air O2 Flow Rate 07/14/23 13:54 3 07/14/23 13:09 3 07/14/23 12:47 3 07/14/23 12:25 4 07/14/23 12:15 4 07/14/23 12:05 4 07/14/23 11:55 4 07/14/23 11:45 4 07/14/23 11:35 4 07/14/23 11:25 4 07/14/23 11:15 6 07/14/23 11:09 6 07/14/23 08:57 07/14/23 06:33 07/14/23 06:30 07/13/23 20:45 2 07/13/23 20:34 07/13/23 17:22 Pain Intensity Abdomen: Pain Intensity: 0 Left Elbow: Pain Intensity: 0 Bilateral Head: Pain Intensity: 0 Right Abdomen: Pain Intensity: 7 Transfer of Care Handoff Completed per policy Notes Mental Status: alert / awake / arousable Patient Amnestic to Procedure: Yes Nausea / Vomiting: adequately controlled Pain: adequately controlled Airway Patency, RR, SpO2: stable & adequate BP & HR: stable & adequate Hydration State: stable & adequate Anesthetic Complications: no major complications apparent and Pt Satisfied with anesthetic care
[2023-07-14] MEDS ORDERED: LEVALBUTEROL HCL 0.63 MG/3 ML NEB NEB PRN (16:05)
[2023-07-14] MEDS ORDERED: Nursing to Pharmacy Communication SCH (16:30)
--- NOTE | 2023-07-14 16:48 | XRay Report ---
XR chest 1V portable HISTORY: 63 years-old Female Dyspnea acute shortness of breath COMPARISON: 07/12/2023 TECHNIQUE: AP view of the chest FINDINGS: Cardiac silhouette is enlarged. Unchanged moderate hemidiaphragmatic elevation. Mild bibasilar atelec tasis. No pneumothorax, pleural effusion or lobar airspace consolidation. Bones appear grossly intact . IMPRESSION: No acute process. ACT 112: Negative or not required by law. The above report was generated using voice recognition software. It may contain grammatical, syntax o r spelling errors. Electronically signed by: Chente Stacy M.D. 07/14/2023 4:47 PM
--- NOTE | 2023-07-14 16:53 | Hospitalist Progress Note ---
Date of Service July 14, 2023 Assessment & Plan (1) Sepsis: (2) Acute cholecystitis: Plan: Patient presenting from home with reports of right upper quadrant abdominal pain. Upon presentation, patient tachycardic in the 120s, labs show WBC 12.3 K. Afebrile, BP stable, normal lactic acid. Acute cholecystitis Hydrops of cystic duct --Gallbladder ultrasound:Cholelithiasis with sonographic evidence of acute cholecystitis. Surgical assessment is advised. There is no intra or extrahepatic biliary ductal dilatation. The common bile duct and pancreas were not visualized. Normal LFTs --Blood cultures negative to date --S/P Laparoscopic Cholecystectomy by Dr. Hernandez on 07/14/2023 Continue Zosyn Appreciate surgery input Pain control as needed Clear liquid diet today Received IV fluids Check chest x-ray to use monitor volume status Further management based on chest x-ray results (3) Hypoxia: Plan: Transient Hypoxia CXR:No active disease in the chest. Saturating well on room air Monitor (4) Abnormal urinalysis: Plan: Patient asymptomatic urine culture: Lactobacillus species (5) Hypertension: Plan: BP relatively low on presentation BP better today Monitor BP off IV fluids Resume lisinopril as able Monitor BP (6) Hypothyroidism: Plan: Chronic, stable Continue levothyroxine (7) Depression: Plan: Chronic, stable Continue home meds Morbid obesity BMI 43 DVT Px: SCDs for now Consider starting on anticoagulation tomorrow Admission and Anticipated Discharge Date Admission Date: July 12, 2023 Subjective Patient is seen and examined at bedside Patient slightly drowsy postoperatively Had lap sydnie today Reports abdominal pain at surgical site RN noted patient to be dyspneic postoperatively Denies any nausea, vomiting, chest pain No other complaints Review of Systems Review of Systems: All systems reviewed & are unremarkable except as noted in Subjective Physical Exam Physical Exam: Physical Exam: Vitals signs as noted above General Appearance:Obese, no apparent distress Head: normocephalic, Atraumatic Eyes: normal inspection, EOMI Neck: supple, Trachea midline Respiratory/Chest: Decreased breath sounds, CTA, No accessory muscle use Cardiovascular: S1, S2, No murmur Abdomen/GI:Soft, tender, + laparoscopic scars, bowel sounds present Extremities/Musculoskeletal:normal inspection, no edema Neurologic/Psych:AAOX3, grossly no focal neurological deficits Skin: normal color, warm Results & Data Results & Data Vital Signs (Past 12 Hours) Vital Signs Temp Pulse Pulse Resp BP Pulse Ox O2 Del Method 07/14/23 16:22 100 H 18 152/86 H 100 Room Air 07/14/23 15:38 37.2 C 96 H 19 143/93 H 92 Nasal Cannula 07/14/23 14:49 37.0 C 97 H 18 139/90 95 Nasal Cannula 07/14/23 13:54 36.6 C 98 H 18 161/93 H 93 Nasal Cannula 07/14/23 13:09 36.5 C 96 H 16 150/86 H 95 Nasal Cannula 07/14/23 13:00 Nasal Cannula 07/14/23 12:47 36.6 C 93 H 17 143/84 H 94 Nasal Cannula 07/14/23 12:25 36.3 C L 91 H 22 156/88 H 93 Nasal Cannula 07/14/23 12:15 93 H 20 144/110 H 93 Nasal Cannula 07/14/23 12:05 91 H 19 172/104 H 97 Nasal Cannula 07/14/23 11:55 93 H 20 160/95 H 95 Nasal Cannula 07/14/23 11:45 93 H 16 162/75 H 94 Nasal Cannula 07/14/23 11:35 94 H 16 159/92 H 94 Nasal Cannula 07/14/23 11:25 94 H 16 170/87 H 94 Nasal Cannula 07/14/23 11:15 96 H 16 162/85 H 94 Oxymask 07/14/23 11:09 37.5 C 97 H 16 169/77 H 94 Oxymask 07/14/23 08:57 37.3 C 96 H 20 138/81 96 Room Air 07/14/23 08:00 Room Air 07/14/23 06:33 92 H 95 Room Air 07/14/23 06:30 36.8 C 91 H 18 100/67 92 Room Air O2 Flow Rate 07/14/23 16:22 07/14/23 15:38 3 07/14/23 14:49 3 07/14/23 13:54 3 07/14/23 13:09 3 07/14/23 13:00 3 07/14/23 12:47 3 07/14/23 12:25 4 07/14/23 12:15 4 07/14/23 12:05 4 07/14/23 11:55 4 07/14/23 11:45 4 07/14/23 11:35 4 07/14/23 11:25 4 07/14/23 11:15 6 07/14/23 11:09 6 07/14/23 08:57 07/14/23 08:00 07/14/23 06:33 07/14/23 06:30 Laboratory Results Short CBC 07/14/23 Range/Units 06:47 WBC 6.43 (4.8-10.8) K/ul Hgb 9.3 L (12.0-16.0) g/dl Hct 31.3 L (37.0-47.0) % Plt Count 216 (130-400) K/uL BMP 07/14/23 06:47 Sodium 140 Potassium 4.0 Chloride 110 H Carbon Dioxide 25 BUN 15 Creatinine 1.07 Glucose 142 H Calcium 8.7
[2023-07-14] MEDS: ACETAMINOPHEN 325 MG TAB PO PRN (19:39)
[2023-07-14] MEDS: MONTELUKAST SODIUM 10 MG TABLET PO SCH (19:41)
[2023-07-14] MEDS: AMITRIPTYLINE HCL 25 MG TAB PO SCH (19:41)
[2023-07-14] MEDS: CETIRIZINE HCL 10 MG TABLET PO SCH (19:42)
[2023-07-14] MEDS: ESCITALOPRAM OXALATE 20 MG TAB PO SCH (19:42)
[2023-07-15] MEDS: MoRPHine SULFATE 4 MG/ML 1 ML CARP\\VIAL IV PRN ×3 (02:00→14:05)
[2023-07-15] MEDS: LEVOTHYROXINE SODIUM 112 MCG TABLET PO SCH (05:40)
[2023-07-15] MEDS: PIPERACILLIN/TAZOBACTAM 4.5 GM in DEXTROSE 5% MINI-B 100 ML IV SCH ×3 (05:40→21:09)
[2023-07-15 07:58] LABS: Hematocrit (blood only) 32.7 % (37.0-47.0); Hemoglobin 9.9 g/dl (12.0-16.0); Mean Corpuscular Hemoglobin 27.1 pg (25.0-34.0); Mean Corpuscular Hgb Conc 30.3 g/dL (32.0-36.0); Mean Corpuscular Volume 89.6 fL (80.0-100.0); Mean Platelet Volume 8.9 fL (9.4-12.4); Platelet Count 271 K/uL (130-400); RDW Coefficient of Variation 13.9 % (11.5-14.5); RDW Standard Deviation 45.2 fL (36.4-46.3); Red Blood Count 3.65 M/uL (4.20-5.40); White Blood Count 12.44 K/ul (4.8-10.8)
[2023-07-15 08:14] LABS: BUN Creatinine Ratio 14.9 (10-20); Calcium 8.8 mg/dl (8.6-10.3); Creatinine Clr Calc Pharmacy 61.1 ml/min; Est GFR (African American) 58.4 ml/min; Est GFR (Non-African American) 50.4 ml/min; Potassium 4.2 mmol/L (3.5-5.1)
[2023-07-15] MEDS: MICONAZOLE NITRATE 2% CR 30 GM TUBE EXT SCH ×2 (10:38→21:09)
[2023-07-15] MEDS: buPROPion SR 150 MG TABCR PO SCH ×2 (10:38→21:09)
[2023-07-15] MEDS: LACTATED RINGER'S 1,000 ML IV SCH (10:39)
--- NOTE | 2023-07-15 13:58 | Surgery Progress Note ---
Date of Service July 15, 2023 Assessment & Plan (1) Acute cholecystitis: Plan: s/p lap sydnie advance diet ambulate discharge per medicine appt my clinic two weeks Present on Admission?: Yes Admission and Anticipated Discharge Date Admission Date: July 12, 2023 Subjective some pain taking po Review of Systems Constitutional: no fever and no chills Respiratory: no cough and no dyspnea Cardiovascular: no chest pain Gastrointestinal: + abdominal pain; no nausea and no vomit ing Physical Exam Gastrointestinal (Abdomen): Inspection/Auscultation: abdomen normal to inspection and normal bowel sounds; abdomen not distended Percussion/Palpation: + abdomen tender and abdomen soft; no guarding and abdomen not rigid Results & Data Vital Signs (Past 12 Hours) Vital Signs Temp Pulse Resp BP BP Pulse Ox O2 Del Method 07/15/23 11:06 37.1 C 108 H 16 115/61 91 Room Air 07/15/23 07:04 36.8 C 99 H 18 105/65 92 Room Air 07/15/23 02:51 36.8 C 103 H 18 116/70 93 Nasal Cannula O2 Flow Rate 07/15/23 11:06 07/15/23 07:04 07/15/23 02:51 2
[2023-07-15] MEDS ORDERED: MAGNESIUM HYDROXIDE SUSP 30 ML UDC PO ONE (14:20)
--- NOTE | 2023-07-15 14:23 | Hospitalist Progress Note ---
Date of Service July 15, 2023 Assessment & Plan (1) Sepsis: (2) Acute cholecystitis: Plan: Patient presenting from home with reports of right upper quadrant abdominal pain. Upon presentation, patient tachycardic in the 120s, labs show WBC 12.3 K. Afebrile, BP stable, normal lactic acid. Acute cholecystitis Hydrops of cystic duct Patient presented with right upper quadrant abdominal pain. --Gallbladder ultrasound:Cholelithiasis with sonographic evidence of acute cholecystitis. Surgical assessment is advised. There is no intra or extrahepatic biliary ductal dilatation. The common bile duct and pancreas were not v isualized. Normal LFTs --Blood cultures negative to date --S/P Laparoscopic Cholecystectomy by Dr. Hernandez on 07/14/2023 Continue Zosyn Advance diet as tolerated. PT OT Possible DC in a.m. (3) Hypoxia: Plan: Transient Hypoxia CXR:No active disease in the chest. Saturating well on room air Monitor (4) Abnormal urinalysis: Plan: Patient asymptomatic urine culture: Lactobacillus species (5) Hypertension: Plan: BP relatively low on presentation Holding lisinopril for the time being. (6) Hypothyroidism: Plan: Chronic, stable Continue levothyroxine (7) Depression: Plan: Chronic, stable Continue home meds Morbid obesity BMI 43 DVT Px: heparin. Please note the above document was generated using voice recognition software. It may contain grammatical, syntax or spelling errors. Any formal questions or concerns about the content, text or information contained within the body of this dictation should be directly addressed to the provider for clarification Admission and Anticipated Discharge Date Admission Date: July 12, 2023 Subjective Patient seen and examined at bedside. She reports that she is feeling feverish. Reports pain at the surgical site. No significant overnight events Review of Systems Review of Systems: All systems reviewed & are unremarkable except as noted in Subjective Physical Exam Physical Exam: Physical Exam: Vitals signs as noted above General Appearance:Obese, no apparent distress Respiratory/Chest: Decreased breath sounds, CTA, No accessory muscle use Cardiovascular: S1, S2, No murmur Abdomen/GI: Dressing present over laparoscopy sites, bowel sounds present Extremities/Musculoskeletal:normal inspection, no edema Neurologic/Psych:AAOX3, grossly no focal neurological deficits Skin: normal color, warm Results & Data Results & Data Vital Signs (Past 12 Hours) Vital Signs Temp Pulse Resp BP BP Pulse Ox O2 Del Method 07/15/23 11:06 37.1 C 108 H 16 115/61 91 Room Air 07/15/23 07:04 36.8 C 99 H 18 105/65 92 Room Air 07/15/23 02:51 36.8 C 103 H 18 116/70 93 Nasal Cannula O2 Flow Rate 07/15/23 11:06 07/15/23 07:04 07/15/23 02:51 2
[2023-07-15] MEDS: ALBUT/IPRATROP 3MG/0.5MG NEB 3 ML VIAL NEB SCH ×2 (15:53→20:16)
[2023-07-15] MEDS ORDERED: MAGNESIUM HYDROXIDE SUSP 30 ML UDC ONE (17:33)
[2023-07-15] MEDS: HEPARIN SOD 5,000 UNIT/0.5 ML VIAL SQ SCH ×2 (17:37→21:09)
[2023-07-15] MEDS: POLYETHYLENE (MIRALAX) 17 GM PACK PO SCH (17:38)
[2023-07-15] MEDS: CETIRIZINE HCL 10 MG TABLET PO SCH (21:08)
[2023-07-15] MEDS: MONTELUKAST SODIUM 10 MG TABLET PO SCH (21:08)
[2023-07-15] MEDS: ESCITALOPRAM OXALATE 20 MG TAB PO SCH (21:09)
[2023-07-15] MEDS: AMITRIPTYLINE HCL 25 MG TAB PO SCH (21:09)
[2023-07-16] MEDS: ALBUT/IPRATROP 3MG/0.5MG NEB 3 ML VIAL NEB SCH ×4 (01:00→19:59)
[2023-07-16] MEDS: LEVOTHYROXINE SODIUM 112 MCG TABLET PO SCH (05:44)
[2023-07-16] MEDS: PIPERACILLIN/TAZOBACTAM 4.5 GM in DEXTROSE 5% MINI-B 100 ML IV SCH ×3 (05:45→21:01)
[2023-07-16] MEDS: HEPARIN SOD 5,000 UNIT/0.5 ML VIAL SQ SCH ×3 (05:45→21:01)
[2023-07-16 07:48] LABS: Basophils # (auto) 0.02 K/uL (0.00-0.20); Basophils % (auto) 0.2 %; Eosinophils # (auto) 0.12 K/uL (0.00-0.50); Hematocrit (blood only) 31.4 % (37.0-47.0); Hemoglobin 9.8 g/dl (12.0-16.0); Immature Granulocytes # (auto) 0.13 K/uL (0.01-0.20); Lymphocytes # (auto) 1.03 K/uL (1.20-3.40); Lymphocytes % (auto) 8.2 %; Mean Corpuscular Hemoglobin 27.1 pg (25.0-34.0); Mean Corpuscular Hgb Conc 31.2 g/dL (32.0-36.0); Mean Platelet Volume 8.9 fL (9.4-12.4); Monocytes % (auto) 4.8 %; Neutrophils # (auto) 10.71 K/uL (1.40-6.50); Neutrophils % (auto) 84.8 %; Platelet Count 267 K/uL (130-400); RDW Standard Deviation 45.1 fL (36.4-46.3); Red Blood Count 3.61 M/uL (4.20-5.40); White Blood Count 12.61 K/ul (4.8-10.8)
[2023-07-16 08:01] LABS: Albumin Globulin Ratio 0.8 (0.9-2); BUN Creatinine Ratio 15.3 (10-20); Bilirubin,Total 0.6 mg/dl (0.2-1.0); Calcium 8.9 mg/dl (8.6-10.3); Est GFR (African American) 70.2 ml/min; Est GFR (Non-African American) 60.5 ml/min; Globulin 3.7 gm/dl (2.5-4.0); Potassium 4.3 mmol/L (3.5-5.1); Total Protein 6.7 gm/dl (6.0-8.3)
[2023-07-16] MEDS: buPROPion SR 150 MG TABCR PO SCH ×2 (09:16→20:59)
[2023-07-16] MEDS: POLYETHYLENE (MIRALAX) 17 GM PACK PO SCH (09:16)
[2023-07-16] MEDS: MICONAZOLE NITRATE 2% CR 30 GM TUBE EXT SCH ×2 (09:17→21:01)
[2023-07-16] MEDS ORDERED: OPTIRAY 320 125ml IV ONE (10:36)
[2023-07-16] MEDS: SODIUM CHLOR 7% 4 ML NEB NEB SCH ×2 (11:35→19:59)
--- NOTE | 2023-07-16 11:53 | CT Scan Report ---
CT angio chest PE protocol CT DOSE: 749.01 mGy.cm HISTORY: 63 years-old Female with Rule out Pulmonary embolism. Acute shortness of breath TECHNIQUE: Multiple CTA images of the chest were obtained after the intravenous administration of 118 ml Optiray. Coronal and sagittal MIPS were obtained from the axial data set and were submitted for review. All measurements were obtained according to NASCET criteria. A dose lowering technique was u tilized adhering to the principles of ALARA. COMPARISON: Chest radiograph 07/14/2023 FINDINGS: Limited study secondary to respiratory motion, contrast bolus timing and upper extremities positionin g. CTA: The heart is normal in size. No pericardial effusion. Moderate to extensive coronary artery calcifica tions. Unremarkable thoracic aorta. Suboptimal evaluation of the pulmonary arteries secondary to cont rast bolus timing. No central pulmonary emboli identified. CT CHEST: No thyroid nodule or pathologically enlarged lymph nodes. Subcentimeter epicardial lymph nodes measur e up to 8 mm. There is unchanged moderate right hemidiaphragmatic elevation. Small right pleural effu laura with dependent consolidation of the right lung. Atelectasis with right lower lobe volume loss an d air bronchograms. There are no suspicious pulmonary nodules or masses identified. Subsegmental left basilar atelectasis. Central airways are patent. No acute upper abdominal abnormality. Unremarkable soft tissues. No acute fracture. IMPRESSION: 1. Limited exam as above with nearly nondiagnostic evaluation of the pulmonary artery. No central pul monary emboli identified. 2. Unchanged moderate right hemidiaphragmatic elevation. 3. Small right pleural effusion with volume loss and consolidation of the right lower lobe favoring a telectasis. Pneumonia could appear similarly. 4. No pathologically enlarged lymph nodes. ACT 112: Negative or not required by law. The above report was generated using voice recognition software. It may contain grammatical, syntax o r spelling errors. Electronically signed by: Chente Stacy M.D. 07/16/2023 11:51 AM
[2023-07-16] MEDS ORDERED: MAGNESIUM HYDROXIDE SUSP 30 ML UDC PO ONE (14:15)
[2023-07-16] MEDS ORDERED: SENNA 8.6 MG TAB PO ONE (14:15)
--- NOTE | 2023-07-16 14:20 | Hospitalist Progress Note ---
Date of Service July 16, 2023 Assessment & Plan (1) Sepsis: (2) Acute cholecystitis: Plan: Patient presenting from home with reports of right upper quadrant abdominal pain. Upon presentation, patient tachycardic in the 120s, labs show WBC 12.3 K. Afebrile, BP stable, normal lactic acid. Acute cholecystitis Hydrops of cystic duct Patient presented with right upper quadrant abdominal pain. --Gallbladder ultrasound:Cholelithiasis with sonographic evidence of acute cholecystitis. Surgical assessment is advised. There is no intra or extrahepatic biliary ductal dilatation. The common bile duct and pancreas were not v isualized. Normal LFTs --Blood cultures negative to date --S/P Laparoscopic Cholecystectomy by Dr. Hernandez on 07/14/2023 Continue Zosyn for 2 more days Advance diet as tolerated. PT OT Bowel regimen with senna, milk of magnesia. Monitor for ileus (3) Hypoxia: Plan: Possible postoperative atelectasis/pneumonia CTA chest was obtained due to hypoxia; small right-sided pleural effusion with volume loss and consolidation of right lower lobe favoring atelectasis. Continue on Zosyn for possible pneumonia. Wean off oxygen as tolerated to keep SpO2 between 90 to 92% Airway clearance therapy with DuoNeb and hypertonic saline, flutter valve, incentive spirometry (4) Abnormal urinalysis: Plan: Patient asymptomatic urine culture: Lactobacillus species (5) Hypertension: Plan: BP relatively low on presentation Holding lisinopril for the time being. (6) Hypothyroidism: Plan: Chronic, stable Continue levothyroxine (7) Depression: Plan: Chronic, stable Continue home meds Morbid obesity BMI 43 DVT Px: heparin. Please note the above document was generated using voice recognition software. It may contain grammatical, syntax or spelling errors. Any formal questions or concerns about the content, text or information contained within the body of this dictation should be directly addressed to the provider for clarification Admission and Anticipated Discharge Date Admission Date: July 12, 2023 Subjective Patient seen and examined at bedside. She is comfortably sitting up on the bed; not in distress. She denies shortness of breath; currently on 2 L of oxygen by nasal cannula. She had not had bowel movement yet. Review of Systems Review of Systems: All systems reviewed & are unremarkable except as noted in Subjective Physical Exam Physical Exam: Physical Exam: Vitals signs as noted above General Appearance:Obese, no apparent distress Respiratory/Chest: Decreased breath sounds, CTA, No accessory muscle use Cardiovascular: S1, S2, No murmur Abdomen/GI: Dressing present over laparoscopy sites, bowel sounds present Extremities/Musculoskeletal:normal inspection, no edema Neurologic/Psych:AAOX3, grossly no focal neurological deficits Skin: normal color, warm Results & Data Results & Data Vital Signs (Past 12 Hours) Vital Signs Temp Pulse Resp BP Pulse Ox O2 Del Method O2 Flow Rate 07/16/23 11:37 110 H 24 95 Nasal Cannula 2 07/16/23 07:41 37.0 C 119 H 22 126/66 92 Nasal Cannula 2 07/16/23 07:40 Nasal Cannula 2 07/16/23 07:16 115 H 20 88 L Room Air
[2023-07-16] MEDS: PROMETHAZINE HCL 12.5 MG in SODIUM CHLORIDE 0.9% 50 ML IV PRN (14:43)
[2023-07-16] MEDS: MONTELUKAST SODIUM 10 MG TABLET PO SCH (20:59)
[2023-07-16] MEDS: ESCITALOPRAM OXALATE 20 MG TAB PO SCH (20:59)
[2023-07-16] MEDS: AMITRIPTYLINE HCL 25 MG TAB PO SCH (20:59)
[2023-07-16] MEDS: CETIRIZINE HCL 10 MG TABLET PO SCH (20:59)
[2023-07-17] MEDS: ALBUT/IPRATROP 3MG/0.5MG NEB 3 ML VIAL NEB SCH ×4 (00:11→19:49)
[2023-07-17] MEDS: PIPERACILLIN/TAZOBACTAM 4.5 GM in DEXTROSE 5% MINI-B 100 ML IV SCH ×3 (06:12→21:17)
[2023-07-17] MEDS: HEPARIN SOD 5,000 UNIT/0.5 ML VIAL SQ SCH ×3 (06:12→21:15)
[2023-07-17] MEDS: LEVOTHYROXINE SODIUM 112 MCG TABLET PO SCH (06:12)
[2023-07-17] MEDS ORDERED: FAMOTIDINE 20 MG in SYRINGE 3 ML IV STA (06:25)
[2023-07-17] MEDS: SODIUM CHLOR 7% 4 ML NEB NEB SCH ×2 (07:26→19:49)
[2023-07-17 08:03] LABS: Basophils # (auto) 0.02 K/uL (0.00-0.20); Basophils % (auto) 0.2 %; Eosinophils # (auto) 0.29 K/uL (0.00-0.50); Eosinophils % (auto) 2.2 %; Hematocrit (blood only) 31.6 % (37.0-47.0); Immature Granulocytes # (auto) 0.08 K/uL (0.01-0.20); Immature Granulocytes % (auto) 0.6 %; Lymphocytes # (auto) 0.93 K/uL (1.20-3.40); Mean Corpuscular Hgb Conc 31.6 g/dL (32.0-36.0); Mean Corpuscular Volume 85.2 fL (80.0-100.0); Mean Platelet Volume 8.8 fL (9.4-12.4); Monocytes # (auto) 0.72 K/uL (0.11-0.59); Monocytes % (auto) 5.4 %; Neutrophils # (auto) 11.24 K/uL (1.40-6.50); Neutrophils % (auto) 84.6 %; Platelet Count 300 K/uL (130-400); RDW Standard Deviation 43.8 fL (36.4-46.3); Red Blood Count 3.71 M/uL (4.20-5.40); White Blood Count 13.28 K/ul (4.8-10.8)
[2023-07-17 08:30] LABS: Albumin Globulin Ratio 0.8 (0.9-2); Albumin Level 3.1 gm/dl (3.4-5.0); BUN Creatinine Ratio 17.2 (10-20); Bilirubin,Total 0.5 mg/dl (0.2-1.0); Calcium 8.8 mg/dl (8.6-10.3); Est GFR (Non-African American) 69.9 ml/min; Globulin 3.7 gm/dl (2.5-4.0); Potassium 3.9 mmol/L (3.5-5.1); Total Protein 6.8 gm/dl (6.0-8.3)
[2023-07-17] MEDS: POLYETHYLENE (MIRALAX) 17 GM PACK PO SCH ×3 (09:20→13:05)
[2023-07-17] MEDS: buPROPion SR 150 MG TABCR PO SCH ×2 (09:21→21:14)
[2023-07-17] MEDS: MICONAZOLE NITRATE 2% CR 30 GM TUBE EXT SCH ×2 (09:22→21:16)
[2023-07-17] MEDS ORDERED: MAGNESIUM HYDROXIDE SUSP 30 ML UDC PO ONE (12:46)
--- NOTE | 2023-07-17 14:04 | XRay Report ---
[facility] CLINICAL HISTORY: Nausea and vomiting. FINDINGS: 4 AP, portable, supine abdominal radiographs are correlated with abdominal CT dated date 01/31/2013. There is mild gaseous distention of the colon. No bowel obstruction is seen. Cholecystectomy clips are noted in the right upper quadrant. No evidence of intraperitoneal free air is seen on these supine images. There are no abnormal abdominal calcifications. Numerous phleboliths are seen in the pelvis. The skeletal structures are osteopenic and appear intact. IMPRESSION: No acute abnormality is identified. Electronically signed by: Scottie Dunham M.D. 07/17/2023 2:03 PM
--- NOTE | 2023-07-17 16:17 | Hospitalist Progress Note ---
Date of Service July 17, 2023 Assessment & Plan (1) Sepsis: (2) Acute cholecystitis: Plan: Patient presenting from home with reports of right upper quadrant abdominal pain. Upon presentation, patient tachycardic in the 120s, labs show WBC 12.3 K. Afebrile, BP stable, normal lactic acid. Acute cholecystitis Patient presented with right upper quadrant abdominal pain. --Gallbladder ultrasound:Cholelithiasis with sonographic evidence of acute cholecystitis. Surgical assessment is advised. There is no intra or extrahepatic biliary ductal dilatation. The common bile duct and pancreas were not visualized. Normal LFTs --Blood cultures negative to date --S/P Laparoscopic Cholecystectomy by Dr. Bates on 07/14/2023 X-ray KUBno ileus. Continue Zosyn for 1 more day Advance diet as tolerated. PT OT Bowel regimen with senna, milk of magnesia. (3) Hypoxia: Plan: Possible postoperative atelectasis/pneumonia CTA chest was obtained due to hypoxia; small right-sided pleural effusion with volume loss and consolidation of right lower lobe favoring atelectasis. Continue on Zosyn for possible pneumonia. Wean off oxygen as tolerated to keep SpO2 between 90 to 92% Airway clearance therapy with DuoNeb and hypertonic saline, flutter valve, incentive spirometry Two-step oxygen evaluation was done; does not require supplemental oxygen. (4) Abnormal urinalysis: Plan: Patient asymptomatic urine culture: Lactobacillus species (5) Hypertension: Plan: BP relatively low on presentation Holding lisinopril for the time being. (6) Hypothyroidism: Plan: Chronic, stable Continue levothyroxine (7) Depression: Plan: Chronic, stable Continue home meds Morbid obesity BMI 43 DVT Px: heparin. Please note the above document was generated using voice recognition software. It may contain grammatical, syntax or spelling errors. Any formal questions or concerns about the content, text or information contained within the body of this dictation should be directly addressed to the provider for clarification Admission and Anticipated Discharge Date Admission Date: July 12, 2023 Subjective Patient seen and examined at bedside. Comfortable; not in distress. Denies fever, chills, chest pain, shortness of breath, abdominal pain or urinary symptoms. No significant overnight events Review of Systems Review of Systems: All systems reviewed & are unremarkable except as noted in Subjective Physical Exam Physical Exam: Physical Exam: Vitals signs as noted above General Appearance:Obese, no apparent distress Respiratory/Chest: Decreased breath sounds at baseline, CTA, No accessory muscle use Cardiovascular: S1, S2, No murmur Abdomen/GI: Dressing present over laparoscopy sites, bowel sounds present Extremities/Musculoskeletal:normal inspection, no edema Neurologic/Psych:AAOX3, grossly no focal neurological deficits Skin: normal color, warm Results & Data Results & Data Vital Signs (Past 12 Hours) Vital Signs Temp Pulse Pulse Pulse Pulse Resp Resp 07/17/23 15:35 36.5 C 105 H 15 07/17/23 12:44 105 H 18 07/17/23 09:58 127 H 123 H 117 H 22 07/17/23 08:46 36.6 C 104 H 16 07/17/23 08:00 07/17/23 07:27 101 H 24 Resp Resp BP Pulse Ox Pulse Ox Pulse Ox Pulse Ox 07/17/23 15:35 139/68 98 07/17/23 12:44 93 07/17/23 09:58 20 18 94 93 91 07/17/23 08:46 124/72 96 07/17/23 08:00 07/17/23 07:27 95 O2 Del Method O2 Flow Rate 07/17/23 15:35 Nasal Cannula 2 07/17/23 12:44 Room Air 07/17/23 09:58 07/17/23 08:46 Room Air 07/17/23 08:00 Nasal Cannula, CPAP 2 07/17/23 07:27 Nasal Cannula 2
[2023-07-17] MEDS: MONTELUKAST SODIUM 10 MG TABLET PO SCH (21:14)
[2023-07-17] MEDS: ESCITALOPRAM OXALATE 20 MG TAB PO SCH (21:14)
[2023-07-17] MEDS: AMITRIPTYLINE HCL 25 MG TAB PO SCH (21:15)
[2023-07-17] MEDS: CETIRIZINE HCL 10 MG TABLET PO SCH (21:15)
--- NOTE | 2023-07-17 23:01 | Electrocardiogram Report ---
Test Reason : Blood Pressure : / mmHG Vent. Rate : 115 BPM Atrial Rate : 115 BPM P-R Int : 152 ms QRS Dur : 096 ms QT Int : 316 ms P-R-T Axes : 046 027 052 degrees QTc Int : 437 ms Sinus tachycardia Cannot rule out Inferior infarct , age undetermined Abnormal ECG When compared with ECG of 12-JUL-2023 18:03, No significant change was found Confirmed by Sriram Thompson ([id number]) on 07/17/2023 11:00:50 PM Referred By: REFERRED SELF Confirmed By:Sriram Thompson
[2023-07-18] MEDS: ALBUT/IPRATROP 3MG/0.5MG NEB 3 ML VIAL NEB SCH ×2 (00:14→07:26)
[2023-07-18] MEDS: PIPERACILLIN/TAZOBACTAM 4.5 GM in DEXTROSE 5% MINI-B 100 ML IV SCH (05:09)
[2023-07-18] MEDS: HEPARIN SOD 5,000 UNIT/0.5 ML VIAL SQ SCH (05:10)
[2023-07-18] MEDS: LEVOTHYROXINE SODIUM 112 MCG TABLET PO SCH (05:11)
[2023-07-18 07:14] LABS: Hematocrit (blood only) 29.9 % (37.0-47.0); Hemoglobin 9.2 g/dl (12.0-16.0); Mean Corpuscular Hemoglobin 27.1 pg (25.0-34.0); Mean Corpuscular Hgb Conc 30.8 g/dL (32.0-36.0); Mean Corpuscular Volume 87.9 fL (80.0-100.0); Mean Platelet Volume 8.6 fL (9.4-12.4); Platelet Count 327 K/uL (130-400); White Blood Count 10.11 K/ul (4.8-10.8)
[2023-07-18] MEDS: SODIUM CHLOR 7% 4 ML NEB NEB SCH (07:26)
[2023-07-18 07:30] LABS: Albumin Globulin Ratio 0.9 (0.9-2); BUN Creatinine Ratio 13.2 (10-20); Bilirubin,Total 0.5 mg/dl (0.2-1.0); Calcium 8.9 mg/dl (8.6-10.3); Creatinine Clr Calc Pharmacy 76.5 ml/min; Est GFR (African American) 76.7 ml/min; Est GFR (Non-African American) 66.2 ml/min; Globulin 3.4 gm/dl (2.5-4.0); Potassium 3.9 mmol/L (3.5-5.1); Total Protein 6.4 gm/dl (6.0-8.3)
[2023-07-18] MEDS ORDERED: MAGNESIUM HYDROXIDE SUSP 30 ML UDC PO ONE (07:49)
[2023-07-18] MEDS: POLYETHYLENE (MIRALAX) 17 GM PACK PO SCH ×2 (08:51)
[2023-07-18] MEDS: buPROPion SR 150 MG TABCR PO SCH (08:53)
[2023-07-18] MEDS: MICONAZOLE NITRATE 2% CR 30 GM TUBE EXT SCH (08:53)
--- NOTE | 2023-07-18 13:34 | Discharge Summary ---
Date of Service July 18, 2023 Admission HPI Per Admitting Provider 63-year-old female with PMH hypothyroidism, dyslipidemia, obesity, VASU on CPAP, HTN, depression, and other problems listed below who presents to the ED for evaluation of right upper quadrant abdominal pain. History is obtained from the patient and review of outpatient PCP records. Patient reports she developed right upper quadrant abdominal pain a few days ago. States that initially felt like gas pain. Pain acutely worsened yesterday. She describes the pain as sharp and persistent. She reports a fever of 101 today. Denies chills and rigors. No nausea, vomiting, diarrhea. Denies chest pain or shortness of breath. No lightheadedness, dizziness, diaphoresis, syncopal events. She denies urinary symptoms. In the ED, patient was tachycardic in the 120s. Labs show WBC 12.3 K. BP stable, normal lactic acid. She was mildly hypoxic on room air at 88% and is currently saturating well on 2 L of oxygen via nasal cannula. Gallbladder ultrasound shows evidence of acute cholecystitis. Patient was given IV Tylenol, IV morphine, IV Zofran, IV Zosyn, IVF. Admission Exam Per Admitting Provider Constitutional: WD/WN, vitals as above + obese; no acute distress Eyes: PERRL, conjunctivae normal, anicteric sclerae ENMT: external ear and nose normal, oropharynx normal Respiratory: normal respiratory effort, lungs clear to auscultation Cardiovascular: Rate/Rhythm: regular rhythm and + tachycardic Vessels: normal peripheral pulses Extremities: no edema Gastrointestinal (Abdomen): Percussion/Palpation: + abdomen tender (Mild, right upper quadrant) and abdomen soft; abdomen not rigid Musculoskeletal: no cyanosis or clubbing, extremities motor strength 5/5 Skin: no rashes, warm and dry Neurologic: PERRL, EOMI, accommodation nl, no face palsy, no dysarthria Psychiatric: A+Ox3, euthymic affect Principal Diagnosis Acute cholecystitis S/P Laparoscopic Cholecystectomy by Dr. Bates on 07/14/2023 Right lower lobe pneumonia Discharge Exam Physical Exam: Vitals signs as noted above General Appearance:Obese, no apparent distress Respiratory/Chest: Bilateral clear breath sounds Cardiovascular: S1, S2, No murmur Abdomen/GI: Dressing present over laparoscopy sites, bowel sounds present Extremities/Musculoskeletal:normal inspection, no edema Neurologic/Psych:AAOX3, grossly no focal neurological deficits Skin: normal color, warm Discharge Data Allergies Allergy/AdvReac Type Severity Reaction Status Date / Time No Known Allergies Allergy Verified 07/12/23 12:48 Consultations 07/12/23 14:07 ED Decision to Admit Stat 07/12/23 18:28 Consult General Surgery Routine Procedures Performed Operation Date: 07/14/23 09:20 Actual Procedures p Laparoscopic Cholecystectomy(Not Applicable) - Jamal Bates MD Ordered Studies 07/12/23 12:14 US gallbladder Stat 07/16/23 08:33 CT angio chest PE protocol Urgent Hospital Course (1) Sepsis: (2) Acute cholecystitis: Patient presenting from home with reports of right upper quadrant abdominal pain. Upon presentation, patient tachycardic in the 120s, labs show WBC 12.3 K. Afebrile, BP stable, normal lactic acid. Acute cholecystitis Patient presented with right upper quadrant abdominal pain. --Gallbladder ultrasound:Cholelithiasis with sonographic evidence of acute cholecystitis. Surgical assessment is advised. There is no intra or extrahepatic biliary ductal dilatation. The common bile duct and pancreas were not visualized. Normal LFTs --Blood cultures negative to date --S/P Laparoscopic Cholecystectomy by Dr. Bates on 07/14/2023 (3) Hypoxia: Possible postoperative atelectasis/pneumonia CTA chest was obtained due to hypoxia; small right-sided pleural effusion with volume loss and consolidation of right lower lobe favoring atelectasis. Treated with Zosyn for possible pneumonia. Two-step oxygen evaluation was done; does not require supplemental oxygen. Discharged with 3 more days of Augmentin Patient to follow-up with primary care doctor and surgery. Please note the above document was generated using voice recognition software. It may contain grammatical, syntax or spelling errors. Any formal questions or concerns about the content, text or information contained within the body of this dictation should be directly addressed to the provider for clarification Total Time Total Time Spent Total Time Spent (In Minutes): 35 Total Time Includes: Examination of the Patient, Discharge Planning, Medication Reconciliation, Communication With Other Providers and Other Discharge Plan Discharge Items Patient Disposition: Home - Self-Care Reason For Visit: ACUTE CHOLECYSTITIS Discharge Diagnosis: Acute cholecystitis status post laparoscopic cholecystectomy Activity: Per Instructions section Lifting: No more than 25 pounds Bathing: No limitations Sexual Activity: When tolerated Exercise/Sports: Wait until after follow-up appointment Driving/Machine Use: Resume 3 days after discharge Weightbearing: Full weightbearing Non-emergency contact: Surgeon Call non-emergency contact if: your pain is concerning for you, your temperature is above 101.5 and your wound pain has increased Follow-up/Referrals: Yaniv Plasencia DO [Primary Care Provider] - 07/22/23 1:40 pm (Date & Time 07/22/2023 1:40 PM Provider Yaniv Plasencia DO Department [facility] ) Diet: Regular Addtl Attending Provider Instructions: You were admitted to the hospital due to inflammation of the gallbladder. You underwent surgery by Dr. Nicole on July 14, 2023. Please follow-up in his clinic in 2 weeks to check up on the wounds. You underwent CT chest on July 16, this showed possible pneumonia on right lower lobe. You are prescribed Augmentin to be taken for 3 more days to complete the antibiotic course. Please follow-up with your primary care doctor as scheduled. You will need a CT scan of the chest in about 2 months to follow-up on the resolution of the pneumonia. Depending on the imaging findings, you might need further workup and pulmonology referral. Pending Studies at Discharge: No Stand-Alone Forms: My [facility], Work/School Release, Smoking Cessation Medications and DC Order Prescriptions: New amoxicillin-pot clavulanate 875-125 mg tablet 1 tab PO BID 5 Days Qty: 10 0RF Continued amitriptyline 25 mg Tablet 25 mg PO HS montelukast 10 mg Tablet 10 mg PO PM cetirizine 10 mg Capsule 10 mg PO QPM escitalopram oxalate [Lexapro] 20 mg Tablet 20 mg PO QPM acetaminophen [Tylenol Extra Strength] 500 mg Tablet 1,000 mg PO Q6H PRN (Reason: Pain) bupropion HCl 150 mg Tablet Sustained-Release 12 Hr 150 mg PO BID levothyroxine 112 mcg tablet 112 mcg PO QAM lisinopril 20 mg tablet See Rx Instructions .ROUTE .COMPLEX Rx Instructions: Take 20mg w/ 10mg tablet to equal 30mg by mouth once in the morning lisinopril 10 mg tablet See Rx Instructions .ROUTE .COMPLEX Rx Instructions: Take 10mg w/ 20mg tablet to equal 30mg by mouth once in the morning Discharge Orders: Discharge Order (Routine); Ordered 07/18/23 Ordered By: Denys Frank/Other Patient Handouts: Cholecystectomy Admission Data Admit Date/Time: 07/12/23 14:34 Attending Provider: Denys Woodard Admit Provider: Black Khan Primary Care Provider: Yaniv Plasencia Other Providers: Black Khan; Jamal Bates Other Interventions: Discharge Summary Assessment (RN) Last Done: 07/18/23 10:58
== END 2023-07-18 11:17 | disposition home or self-care (01) | DRG 853 ==
LOC: ED 11:38 → 3W 14:34 → SUATTDRO 14:34 → 3W 16:41